=== PATIENT | female | born 1930 | race American Indian/Alaskan Native ===

== ENCOUNTER 2017-05-20 09:53 | Inpatient (IN) | payer MEDICARE, MEDICAID ==
[2017-05-20 10:28] LABS: Basophils % (Auto) 0.5 % (0.0-1.8); Hematocrit 35.2 % (30.3-42.9); Hemoglobin 11.2 gm/dl (10.1-14.3); Mean Corpuscular HGB Conc 32 % (30-34); Mean Corpuscular Hemoglobin 29 pg (28-32); Mean Corpuscular Volume 91 fl (79-97); Platelet Count 382 K/mm3 (140-440); Red Blood Count 3.85 M/mm3 (3.65-5.03); Red Cell Distribution Width 15.9 % (13.2-15.2); White Blood Count 5.3 K/mm3 (4.5-11.0)
[2017-05-20 10:45] LABS: Calcium 8.6 mg/dL (8.4-10.2); Chloride 93.3 mmol/L (98-107)
[2017-05-20 10:49] LABS: Potassium 6.6 mmol/L (3.6-5.0)
[2017-05-20 11:33] LABS: Albumin 3.3 g/dL (3.9-5); Bilirubin,Total 0.2 mg/dL (0.1-1.2); Calcium 8.7 mg/dL (8.4-10.2); Chloride 92.6 mmol/L (98-107); Potassium 5.4 mmol/L (3.6-5.0); Total Protein 6.5 g/dL (6.3-8.2)
[2017-05-20] MEDS ORDERED: D50W (25GM) Syringe IV PRN ×2 (11:44→12:41)
--- NOTE | 2017-05-20 11:58 | Emergency Department Report ---
HPI - General Chief Complaint: Hyperglycemia Time Seen by Provider: 05/20/17 11:44 - HPI HPI: Room 6 The patient is an 86-year-old female presenting with a chief complaint of "dehydration." He states the patient has had persistently elevated glucose for the past 4 days. The patient is a type I diabetic and family states patient has been compliant with her insulin. 3 weeks ago the patient did receive a steroid injection in her left knee. Patient hasn't had any preceding complaints. Patient does complain of pain in the left arm and left leg. There was some nausea but no vomiting. Family states the patient had 2 episodes of diarrhea 3 days ago. Patient denies any other forms of pain. Location: [See above] Duration: 4 days Quality: Hyperglycemia Severity: "Hi" Modifying factors: [see above] Context: [see above] Mode of transportation: [not driving] ED Past Medical Hx - Past Medical History Previous Medical History?: Yes Hx CVA: Yes (hemorrhagic CVA) Hx Diabetes: Yes Additional medical history: anemia, DVT - Surgical History Additional Surgical History: Intracranial hemorrhage evacuation. G-tube - Family History Family history: no significant - Social History Smoking Status: Never Smoker Substance Use Type: None - Medications Home Medications: Home Medications Medication Instructions Recorded Confirmed Last Taken Type AtorvaSTATin [Lipitor] 10 mg PO QHS 05/20/17 05/20/17 Unknown History Bethanechol Chloride 25 mg PO TID 05/20/17 05/20/17 Unknown History Cholecalciferol (Vitamin D3) 1,000 unit PO DAILY 05/20/17 05/20/17 Unknown History [Vitamin D3] Cyanocobalamin [Vitamin B-12] 2,000 mcg PO DAILY 05/20/17 05/20/17 Unknown History Insulin Lispro [Humalog] 0 unit SQ DAILY 05/20/17 05/20/17 Unknown History Lisinopril [Zestril TAB] 10 mg PO QDAY 05/20/17 05/20/17 Unknown History Multivitamin [Multiple Vitamins] 1 each PO DAILY 05/20/17 05/20/17 Unknown History Omeprazole 20 mg PO QHS 05/20/17 05/20/17 Unknown History amLODIPine [Norvasc] 5 mg PO DAILY 05/20/17 05/20/17 Unknown History levETIRAcetam [Keppra ORAL LIQ] 500 mg PO BID 05/20/17 05/20/17 Unknown History oxyCODONE [Roxicodone] 5 mg PO Q6HR PRN 05/20/17 05/20/17 Unknown History ED Review of Systems ROS: Stated complaint: HYPERGLYCEMIA Other details as noted in HPI Constitutional: malaise Eyes: denies: eye pain ENT: denies: throat pain Cardiovascular: denies: chest pain Gastrointestinal: nausea, diarrhea. denies: abdominal pain, vomiting Genitourinary: denies: dysuria Musculoskeletal: arthralgia, myalgia Neurological: denies: headache Physical Exam - Physical Exam Vital Signs: Vital Signs 05/20/17 10:11 Temperature 97.6 F Pulse Rate 111 H Respiratory 16 Rate Blood Pressure 119/57 [Left] O2 Sat by Pulse 96 Oximetry Physical Exam: GENERAL: The patient is well-developed well-nourished female lying on stretcher appearing lethargic but not in any acute distress HEENT: Normocephalic. Atraumatic. Extraocular motions are intact. Patient has dry mucous membranes. NECK: Supple. Trachea midline CHEST/LUNGS: Clear to auscultation. There is no respiratory distress noted. HEART/CARDIOVASCULAR: Regular. There is no tachycardia. There is no gallop rub or murmur. ABDOMEN: Abdomen is soft, nontender. Patient has normal bowel sounds. There is no abdominal distention. SKIN: There is no rash. There is no edema. There is no diaphoresis. NEURO: The patient is awake and oriented. The patient is cooperative. The patient has normal speech MUSCULOSKELETAL: There is no evidence of acute injury. ED Course Vital Signs 05/20/17 10:11 Temperature 97.6 F Pulse Rate 111 H Respiratory 16 Rate Blood Pressure 119/57 [Left] O2 Sat by Pulse 96 Oximetry ED Medical Decision Making - Lab Data Result diagrams: 05/20/17 10:15 05/20/17 11:00 Laboratory Tests 05/20/17 05/20/17 05/20/17 10:15 10:17 10:19 WBC 5.3 RBC 3.85 Hgb 11.2 Hct 35.2 MCV 91 MCH 29 MCHC 32 RDW 15.9 H Plt Count 382 Lymph % (Auto) 11.7 L [place] % (Auto) 9.9 H Eos % (Auto) 0.0 Baso % (Auto) 0.5 Lymph # 0.6 L [place] # 0.5 Eos # 0.0 Baso # 0.0 Seg Neutrophils % 77.9 H Seg Neutrophils # 4.1 VBG pH Sodium 133 L Potassium 6.6 H* Chloride 93.3 L Carbon Dioxide 12 L Anion Gap 34 BUN 39 H Creatinine 1.5 H Estimated GFR 40 BUN/Creatinine Ratio 26 Glucose 473 H POC Glucose 414 H Calcium 8.6 Total Bilirubin AST ALT Alkaline Phosphatase Total Protein Albumin Albumin/Globulin Ratio 05/20/17 05/20/17 10:19 11:00 WBC RBC Hgb Hct MCV MCH MCHC RDW Plt Count Lymph % (Auto) [place] % (Auto) Eos % (Auto) Baso % (Auto) Lymph # [place] # Eos # Baso # Seg Neutrophils % Seg Neutrophils # VBG pH 7.231 L Sodium 133 L Potassium 5.4 H Chloride 92.6 L Carbon Dioxide 17 L Anion Gap 29 BUN 40 H Creatinine 1.4 H Estimated GFR 43 BUN/Creatinine Ratio 29 Glucose 558 H* POC Glucose Calcium 8.7 Total Bilirubin 0.20 AST 15 ALT 14 Alkaline Phosphatase 100 Total Protein 6.5 Albumin 3.3 L Albumin/Globulin Ratio 1.0 - Differential Diagnosis DKA, hyperglycemia Critical care attestation.: If time is entered above; I have spent that time in minutes in the direct care of this critically ill patient, excluding procedure time. ED Disposition Clinical Impression: DKA (diabetic ketoacidoses) Disposition: OP ADMIT IP TO THIS HOSP Is pt being admited?: Yes Does the pt Need Aspirin: No Condition: Serious Instructions: Diabetic Ketoacidosis (ED) Referrals: PRIMARY CARE, [Primary Care Provider] - 3-5 Days Time of Disposition: 12:00 (hospitalist paged (Dr Elise))
--- NOTE | 2017-05-20 12:39 | History and Physical Report ---
History of Present Illness Chief complaint: Im dehydrated History of present illness: 86 YO Female [facility] Resident with DM, CVA, Debility, ICH, Anemia presents to ED for evaluation. Pt exhibits cognitive slowing and in unable to provide a detailed history. History taken from ED staff, as well as family, and medical records. Pt states that she is dehydrated. family reports that patient has experienced high serum glucose levels for the past 4 days, with increasing symptoms over the same time period. No reports of fever, chills, CP, Palpitations, vomiting, loose stools, rashes, or generalized body pain, body aches, or medication noncompliance. Pt seen and evaluated in ED and found to have DKA complicated by anion gap acidosis. Pt initiated on DKA protocol, and admitted to ICU. Past History Past Medical History: anemia, diabetes, DVT, stroke Past Surgical History: Other (G tube, ICH evacuation) Social history: . denies: smoking, alcohol abuse, prescription drug abuse Family history: no significant family history (reviewed) Medications and Allergies Allergies Allergy/AdvReac Type Severity Reaction Status Date / Time No Known Allergies Allergy Unverified 05/20/17 09:54 Home Medications Medication Instructions Recorded Confirmed Last Taken Type AtorvaSTATin [Lipitor] 10 mg PO QHS 05/20/17 05/20/17 Unknown History Bethanechol Chloride 25 mg PO TID 05/20/17 05/20/17 Unknown History Cholecalciferol (Vitamin D3) 1,000 unit PO DAILY 05/20/17 05/20/17 Unknown History [Vitamin D3] Cyanocobalamin [Vitamin B-12] 2,000 mcg PO DAILY 05/20/17 05/20/17 Unknown History Insulin Lispro [Humalog] 0 unit SQ DAILY 05/20/17 05/20/17 Unknown History Lisinopril [Zestril TAB] 10 mg PO QDAY 05/20/17 05/20/17 Unknown History Multivitamin [Multiple Vitamins] 1 each PO DAILY 05/20/17 05/20/17 Unknown History Omeprazole 20 mg PO QHS 05/20/17 05/20/17 Unknown History amLODIPine [Norvasc] 5 mg PO DAILY 05/20/17 05/20/17 Unknown History levETIRAcetam [Keppra ORAL LIQ] 500 mg PO BID 05/20/17 05/20/17 Unknown History oxyCODONE [Roxicodone] 5 mg PO Q6HR PRN 05/20/17 05/20/17 Unknown History Active Meds: Active Medications Dextrose (D50w (25gm) Syringe) 0 ml IV ONCE PRN PRN Reason: Hypoglycemia Insulin Human Regular 100 (units/ Sodium Chloride) 100 mls @ 5 mls/hr IV TITR DENNIS; 5 UNITS/HR PRN Reason: Protocol Review of Systems ROS unobtainable: due to mental status Exam - Constitutional Vitals: Temp Pulse Resp BP Pulse Ox 97.6 F 111 H 16 119/57 96 05/20/17 10:11 05/20/17 10:11 05/20/17 10:11 05/20/17 10:11 05/20/17 10:11 General appearance: Present: mild distress - EENT Eyes: Present: PERRL ENT: hearing intact, clear oral mucosa, other (dry oral mucosa) - Neck Neck: Present: supple, normal ROM - Respiratory Respiratory effort: normal Respiratory: bilateral: CTA - Cardiovascular Rhythm: other (tachycardia) Heart Sounds: Present: S1 & S2. Absent: rub, click - Extremities Extremities: pulses symmetrical, No edema Peripheral Pulses: within normal limits - Abdominal General gastrointestinal: Present: soft, non-tender, non-distended, normal bowel sounds Female genitourinary: Present: normal - Integumentary Integumentary: Present: clear, dry, decreased turgor - Musculoskeletal Musculoskeletal: generalized weakness - Psychiatric Psychiatric: no intact judgment & insight, no memory intact - Neurologic Neurologic: CNII-XII intact, moves all extremities, no gait normal Results - Labs CBC & Chem 7: 05/20/17 10:15 05/20/17 13:30 Labs: Abnormal lab results 05/20/17 05/20/17 05/20/17 Range/Units 10:15 10:17 10:19 RDW 15.9 H (13.2-15.2) % Lymph % (Auto) 11.7 L (13.4-35.0) % [place] % (Auto) 9.9 H (0.0-7.3) % Lymph # 0.6 L (1.2-5.4) K/mm3 Seg Neutrophils % 77.9 H (40.0-70.0) % VBG pH (7.320-7.420) Sodium 133 L (137-145) mmol/L Potassium 6.6 H* (3.6-5.0) mmol/L Chloride 93.3 L (98-107) mmol/L Carbon Dioxide 12 L (22-30) mmol/L BUN 39 H (7-17) mg/dL Creatinine 1.5 H (0.7-1.2) mg/dL Glucose 473 H (65-100) mg/dL POC Glucose 414 H (70-105) Albumin (3.9-5) g/dL 05/20/17 05/20/17 Range/Units 10:19 11:00 RDW (13.2-15.2) % Lymph % (Auto) (13.4-35.0) % [place] % (Auto) (0.0-7.3) % Lymph # (1.2-5.4) K/mm3 Seg Neutrophils % (40.0-70.0) % VBG pH 7.231 L (7.320-7.420) Sodium 133 L (137-145) mmol/L Potassium 5.4 H (3.6-5.0) mmol/L Chloride 92.6 L (98-107) mmol/L Carbon Dioxide 17 L (22-30) mmol/L BUN 40 H (7-17) mg/dL Creatinine 1.4 H (0.7-1.2) mg/dL Glucose 558 H* (65-100) mg/dL POC Glucose (70-105) Albumin 3.3 L (3.9-5) g/dL Assessment and Plan - Patient Problems (1) DKA (diabetic ketoacidoses) Current Visit: Yes Status: Acute Plan to address problem: Insulin drip, serial BMP to monitor anion gap, IVF resuscitation, monitor uop q shift, The high probability of a clinically significant, sudden or life threatening deterioration of the [endocrine, renal, neuro] system(s) required my full and direct attention, intervention and personal management. The aggregate critical care time was [65] minutes. This time is in addition to time spent performing reported procedures but includes the following: [x] Data Review and interpretation [x] Patient assessment and monitoring of vital signs [x] Documentation [x] Medication orders and management (2) Metabolic acidosis Current Visit: Yes Status: Acute Plan to address problem: Treat DKA, IVF resuscitation, serial bmp (3) ARF (acute renal failure) Current Visit: Yes Status: Acute Plan to address problem: IVF resuscitation therapy, monitor uop q shift, if no improvement or worsening in serum creatnine or urine output, will asses with urine electrolytes. (4) Hyperkalemia Current Visit: Yes Status: Acute (5) Hyponatremia syndrome Current Visit: Yes Status: Acute Plan to address problem: IVF resuscitation, repeat bmp, (6) DVT prophylaxis Current Visit: Yes Status: Acute
[2017-05-20] MEDS ORDERED: ALUM-MAG HYDROX-SIMETH 200-200-20MG/5ML PO PRN (12:41)
[2017-05-20] MEDS ORDERED: MILK OF MAGNESIA PO PRN (12:41)
[2017-05-20] MEDS ORDERED: DULCOLAX PR PRN (12:41)
[2017-05-20] MEDS ORDERED: PROVENTIL IH PRN (12:41)
[2017-05-20] MEDS ORDERED: ROXICODONE PO PRN (12:43)
[2017-05-20] MEDS: NovoLIN R 100 UNITS in NACL 0.9% 99 ML IV SCH (12:45)
[2017-05-20] MEDS ORDERED: NovoLIN R 100 UNITS in NACL 0.9% 99 ML IV SCH (13:00)
[2017-05-20 13:25] LABS: Magnesium 2.1 mg/dL (1.7-2.3); Phosphorous 3.9 mg/dL (2.5-4.5)
[2017-05-20 14:02] LABS: Calcium 8.5 mg/dL (8.4-10.2); Potassium 4.6 mmol/L (3.6-5.0)
[2017-05-20] MEDS: URECHOLINE PO SCH ×2 (15:15→19:59)
[2017-05-20 15:36] LABS: Calcium 8.8 mg/dL (8.4-10.2); Chloride 94.4 mmol/L (98-107); Potassium 4.5 mmol/L (3.6-5.0)
[2017-05-20] MEDS ORDERED: D5/0.45NS 1,000 ML IV SCH (18:00)
[2017-05-20 18:19] LABS: Calcium 8.9 mg/dL (8.4-10.2); Chloride 97.9 mmol/L (98-107); Potassium 3.8 mmol/L (3.6-5.0)
[2017-05-20] MEDS ORDERED: NACL 0.9% 1000 ML 1,000 ML IV SCH (19:00)
[2017-05-20] MEDS: KEPPRA PO SCH (21:55)
[2017-05-20] MEDS ORDERED: NON-FORMULARY (Omeprazole [Omeprazole] 20 MG) PO SCH (22:00)
[2017-05-21] MEDS: NovoLIN R 100 UNITS in NACL 0.9% 99 ML IV SCH (03:04)
[2017-05-21 03:38] LABS: Bacteria,Urine 4+ /HPF (Negative); Bilirubin,Urine NEG (Negative); Blood,Urine SM (Negative); Ketones,Urine TR mg/dL (Negative); Leukocyte Esterase,Urine LG (Negative); Mucus,Urine FEW /HPF; Nitrite,Urine NEG (Negative); Urobilinogen,Urine < 2.0 mg/dL (<2.0)
[2017-05-21 03:41] LABS: WBC,Urine > 182.0 /HPF (0.0-6.0)
[2017-05-21 05:03] LABS: Anion Gap 22 mmol/L; BUN/Creatinine Ratio 32; Blood Urea Nitrogen 32 mg/dL (7-17); Calcium 8.3 mg/dL (8.4-10.2); Carbon Dioxide 21 mmol/L (22-30); Chloride 98.2 mmol/L (98-107); Glucose 136 mg/dL (65-100); Potassium 3.8 mmol/L (3.6-5.0); Sodium 137 mmol/L (137-145)
[2017-05-21] MEDS: URECHOLINE PO SCH ×4 (08:17→23:09)
[2017-05-21] MEDS ORDERED: NON-FORMULARY (Multivitamin [Multiple Vitamins] 1 EACH) PO SCH (10:00)
[2017-05-21] MEDS ORDERED: NON-FORMULARY (Cholecalciferol (Vitamin D3) [Vitamin D3] 1,000 UNIT) PO SCH (10:00)
--- NOTE | 2017-05-21 10:39 | Consultation ---
History of Present Illness - Reason for Consult Consult date: 05/21/17 DKA Requesting physician: NO DE - History of Present Illness 86 YO Female Long Term Resident with DM, CVA, Debility, ICH, Anemia presents to ED for evaluation. Pt exhibits cognitive slowing and in unable to provide a detailed history. History taken from ED staff, as well as family, and medical records. Pt states that she is dehydrated. family reports that patient has experienced high serum glucose levels for the past 4 days, with increasing symptoms over the same time period. No reports of fever, chills, CP, Palpitations, vomiting, loose stools, rashes, or generalized body pain, body aches, or medication noncompliance. Pt seen and evaluated in ED and found to have DKA complicated by anion gap acidosis. Pt initiated on DKA protocol, and admitted to ICU. Past History Past Medical History: anemia, diabetes, DVT, stroke Past Surgical History: Other (G tube, ICH evacuation) Social history: . denies: smoking, alcohol abuse, prescription drug abuse Family history: no significant family history (reviewed) Medications and Allergies Allergies Allergy/AdvReac Type Severity Reaction Status Date / Time heparin AdvReac Bleeding Verified 05/20/17 18:51 Home Medications Medication Instructions Recorded Confirmed Last Taken Type AtorvaSTATin [Lipitor] 10 mg PO QHS 05/20/17 05/20/17 Unknown History Bethanechol Chloride 25 mg PO TID 05/20/17 05/20/17 Unknown History Cholecalciferol (Vitamin D3) 1,000 unit PO DAILY 05/20/17 05/20/17 Unknown History [Vitamin D3] Cyanocobalamin [Vitamin B-12] 2,000 mcg PO DAILY 05/20/17 05/20/17 Unknown History Insulin Lispro [Humalog] 0 unit SQ DAILY 05/20/17 05/20/17 Unknown History Lisinopril [Zestril TAB] 10 mg PO QDAY 05/20/17 05/20/17 Unknown History Multivitamin [Multiple Vitamins] 1 each PO DAILY 05/20/17 05/20/17 Unknown History Omeprazole 20 mg PO QHS 05/20/17 05/20/17 Unknown History amLODIPine [Norvasc] 5 mg PO DAILY 05/20/17 05/20/17 Unknown History levETIRAcetam [Keppra ORAL LIQ] 500 mg PO BID 05/20/17 05/20/17 Unknown History oxyCODONE [Roxicodone] 5 mg PO Q6HR PRN 05/20/17 05/20/17 Unknown History Active Meds: Active Medications Al Hydrox/Mg Hydrox/Simethicone (Alum-Mag Hydrox-Simeth [id number]/5ml) 30 ml PO Q4H PRN PRN Reason: Indigestion Albuterol (Proventil) 2.5 mg IH Q3HRT PRN PRN Reason: Shortness Of Breath Amlodipine Besylate (Norvasc) 5 mg PO DAILY REPLACED BY [facility] Atorvastatin Calcium (Lipitor) 10 mg PO QHS REPLACED BY [facility] Last Admin: 05/20/17 21:55 Dose: 10 mg Bethanechol Chloride (Urecholine) 25 mg PO TID REPLACED BY [facility] Last Admin: 05/20/17 19:59 Dose: 25 mg Bisacodyl (Dulcolax) 10 mg CO QDAY PRN PRN Reason: constipation unrelieved by MOM Cholecalciferol (Vitamin D3) 1,000 unit PO QDAY REPLACED BY [facility] Cyanocobalamin (Vitamin B-12) 2,000 mcg PO DAILY REPLACED BY [facility] Dextrose (D50w (25gm) Syringe) 0 ml IV ONCE PRN PRN Reason: Hypoglycemia Insulin Human Regular 100 (units/ Sodium Chloride) 100 mls @ 5 mls/hr IV TITR DENNIS; 5 UNITS/HR PRN Reason: Protocol Last Titration: 05/21/17 06:57 Dose: 0.5 units/hr, 0.5 mls/hr Dextrose/Sodium Chloride (D5/0.45ns) 1,000 mls @ 125 mls/hr IV DIRECT DENNIS Sodium Chloride (Nacl 0.9% 1000 Ml) 1,000 mls @ 125 mls/hr IV DIRECT REPLACED BY [facility] Influenza Virus Vaccine Quadrival (Fluarix Quad [id number](36 Mos+) 0.5 ml IM .ONCE ONE Stop: 05/21/17 12:01 Levetiracetam (Keppra) 500 mg PO BID REPLACED BY [facility] Last Admin: 05/20/17 21:55 Dose: 500 mg Lisinopril (Zestril) 10 mg PO QDAY REPLACED BY [facility] Magnesium Hydroxide (Milk Of Magnesia) 30 ml PO Q4H PRN PRN Reason: Constipation Multivitamins (Theragran Tab) 1 each PO DAILY DENNIS Oxycodone HCl (Roxicodone) 5 mg PO Q6HR PRN PRN Reason: Pain Pantoprazole Sodium (Protonix) 20 mg PO QDAY DENNIS Review of Systems All systems: negative Exam - Constitutional Vitals: Temp Pulse Resp BP Pulse Ox 97.6 F 93 H 10 L 135/63 100 05/21/17 08:00 05/21/17 08:21 05/21/17 08:21 05/21/17 08:21 05/21/17 08:21 Results - Labs CBC & Chem 7: 05/20/17 10:15 05/21/17 04:27 Labs: Abnormal lab results 05/20/17 05/20/17 05/20/17 Range/Units 10:17 10:19 10:19 VBG pH 7.231 L (7.320-7.420) Sodium 133 L (137-145) mmol/L Potassium 6.6 H* (3.6-5.0) mmol/L Chloride 93.3 L (98-107) mmol/L Carbon Dioxide 12 L (22-30) mmol/L BUN 39 H (7-17) mg/dL Creatinine 1.5 H (0.7-1.2) mg/dL Glucose 473 H (65-100) mg/dL POC Glucose 414 H (70-105) Calcium (8.4-10.2) mg/dL Albumin (3.9-5) g/dL Urine WBC (Auto) (0.0-6.0) /HPF 05/20/17 05/20/17 05/20/17 Range/Units 11:00 13:30 13:53 VBG pH (7.320-7.420) Sodium 133 L 133 L (137-145) mmol/L Potassium 5.4 H (3.6-5.0) mmol/L Chloride 92.6 L 92.0 L (98-107) mmol/L Carbon Dioxide 17 L 16 L (22-30) mmol/L BUN 40 H 40 H (7-17) mg/dL Creatinine 1.4 H 1.4 H (0.7-1.2) mg/dL Glucose 558 H* 654 H* (65-100) mg/dL POC Glucose 467 H (70-105) Calcium (8.4-10.2) mg/dL Albumin 3.3 L (3.9-5) g/dL Urine WBC (Auto) (0.0-6.0) /HPF 05/20/17 05/20/17 05/20/17 Range/Units 14:55 15:07 16:35 VBG pH (7.320-7.420) Sodium 135 L (137-145) mmol/L Potassium (3.6-5.0) mmol/L Chloride 94.4 L (98-107) mmol/L Carbon Dioxide 13 L (22-30) mmol/L BUN 39 H (7-17) mg/dL Creatinine 1.4 H (0.7-1.2) mg/dL Glucose 465 H (65-100) mg/dL POC Glucose 434 H 375 H (70-105) Calcium (8.4-10.2) mg/dL Albumin (3.9-5) g/dL Urine WBC (Auto) (0.0-6.0) /HPF 05/20/17 05/20/17 05/20/17 Range/Units 17:29 17:49 18:38 VBG pH (7.320-7.420) Sodium (137-145) mmol/L Potassium (3.6-5.0) mmol/L Chloride 97.9 L (98-107) mmol/L Carbon Dioxide (22-30) mmol/L BUN 37 H (7-17) mg/dL Creatinine 1.3 H (0.7-1.2) mg/dL Glucose 127 H (65-100) mg/dL POC Glucose 191 H 140 H (70-105) Calcium (8.4-10.2) mg/dL Albumin (3.9-5) g/dL Urine WBC (Auto) (0.0-6.0) /HPF 05/20/17 05/20/17 05/20/17 Range/Units 21:59 22:59 Unknown VBG pH (7.320-7.420) Sodium (137-145) mmol/L Potassium (3.6-5.0) mmol/L Chloride (98-107) mmol/L Carbon Dioxide (22-30) mmol/L BUN (7-17) mg/dL Creatinine (0.7-1.2) mg/dL Glucose (65-100) mg/dL POC Glucose 151 H 180 H (70-105) Calcium (8.4-10.2) mg/dL Albumin (3.9-5) g/dL Urine WBC (Auto) > 182.0 H (0.0-6.0) /HPF 05/21/17 05/21/17 Range/Units 00:11 04:27 VBG pH (7.320-7.420) Sodium (137-145) mmol/L Potassium (3.6-5.0) mmol/L Chloride (98-107) mmol/L Carbon Dioxide 21 L (22-30) mmol/L BUN 32 H (7-17) mg/dL Creatinine (0.7-1.2) mg/dL Glucose 136 H (65-100) mg/dL POC Glucose 142 H (70-105) Calcium 8.3 L (8.4-10.2) mg/dL Albumin (3.9-5) g/dL Urine WBC (Auto) (0.0-6.0) /HPF Assessment and Plan 86 y/o female with DKA 1. Calculate insulin requirement for last 24 hours 2. Will administer long acting insulin and discontinue drip, 2 hours after 3. Feed patient CC diet 4. If tolerates, transfer to the floor 5. UA positive but no fever, no white count. Will monitor for now. CCT 31 minutes.
[2017-05-21] MEDS ORDERED: LEVEMIR SUB-Q SCH (11:00)
[2017-05-21] MEDS ORDERED: Fluarix Quad 2017-2018(36 MOS+ IM ONE (12:00)
[2017-05-21] MEDS: NOVOLOG SUB-Q SCH ×3 (12:00→18:52)
[2017-05-21 12:03] LABS: Anion Gap 19 mmol/L; BUN/Creatinine Ratio 29; Blood Urea Nitrogen 26 mg/dL (7-17); Calcium 8.1 mg/dL (8.4-10.2); Carbon Dioxide 23 mmol/L (22-30); Chloride 99.1 mmol/L (98-107); Glucose 181 mg/dL (65-100); Sodium 137 mmol/L (137-145)
[2017-05-21] MEDS: ZESTRIL PO SCH (12:05)
[2017-05-21] MEDS: THERAGRAN Tab PO SCH (12:06)
[2017-05-21] MEDS: VITAMIN B-12 PO SCH (12:06)
[2017-05-21] MEDS: NORVASC PO SCH (12:06)
[2017-05-21] MEDS: PROTONIX PO SCH (12:06)
[2017-05-21] MEDS: VITAMIN D3 PO SCH (12:07)
[2017-05-21] MEDS: KEPPRA PO SCH ×2 (12:07→23:09)
[2017-05-21] MEDS ORDERED: SODIUM BICARBONATE FEEDTUBE PRN (16:24)
[2017-05-21] MEDS ORDERED: PANCREAZE DR 10,500 UNIT FEEDTUBE PRN (16:24)
[2017-05-21] MEDS ORDERED: SIMPLE SYRUP FEEDTUBE PRN ×2 (16:24)
--- NOTE | 2017-05-21 17:26 | Progress Note ---
Assessment and Plan Assessment and plan: 86-year-old [place] female with past medical history significant for diabetes mellitus, subdural hematoma, phlebitis admitted to ICU for the management of DKA. Patient has G-tube, but she is able to eat by mouth. Her son brought tresiba which is a new diabetic medications she used to take at home and will restart that and will DC the detemir but continue thr SSI coverage. The patient [facility] and she was not on ADA diet. DKA - Patient was treated according to DKA protocol and resolved - Anion gap closed, co2 normalized DM with hyperglycemia - We will continue tresiba - Continue sliding scale insulin coverage - Patient is on diabetic diet UTI - Put her on ceftriaxone - will follow the culture result Weakness debility - Consult for PT, case management , evaluation for rehab placement Metabolic Acidosis - her bicarb is 23 this morning Sub dural hematoma X2, she had removal of subdural hematoma x1 LUCINDA - resolved DVT prophylaxis - SCDs Disposition - will monitor in the ICU. History Interval history: Patient was seen and evaluated this morning, patient said she was hungry, she wants her diet. I have discussed the management plan with her son Zion who is a member of [facility]. Hospitalist Physical - Physical exam Narrative exam: Not in cardiopulmonary distress. The patient is emaciated. Vital signs as documented. Head exam is unremarkable. No scleral icterus . Neck is without jugular venous distension, thyromegaly, or carotid bruits. Lungs are clear to auscultation. Cardiac exam reveals regular rate and Rhythm. Abdominal G-tube in place. Extremities are nonedematous and both femoral and pedal pulses are normal. NAIL SPECIALIST: Alert and oriented 3. - Constitutional Vitals: Temp Pulse Resp BP Pulse Ox 98.4 F 113 H 18 131/69 75 L 05/21/17 14:00 05/21/17 16:21 05/21/17 16:21 05/21/17 16:21 05/21/17 16:21 General appearance: Present: mild distress Results - Labs CBC & Chem 7: 05/20/17 10:15 05/21/17 11:30 Labs: Laboratory Last Values WBC 5.3 K/mm3 (4.5-11.0) 05/20/17 10:15 RBC 3.85 M/mm3 (3.65-5.03) 05/20/17 10:15 Hgb 11.2 gm/dl (10.1-14.3) 05/20/17 10:15 Hct 35.2 % (30.3-42.9) 05/20/17 10:15 MCV 91 fl (79-97) 05/20/17 10:15 MCH 29 pg (28-32) 05/20/17 10:15 MCHC 32 % (30-34) 05/20/17 10:15 RDW 15.9 % (13.2-15.2) H 05/20/17 10:15 Plt Count 382 K/mm3 (140-440) 05/20/17 10:15 Lymph % (Auto) 11.7 % (13.4-35.0) L 05/20/17 10:15 [place] % (Auto) 9.9 % (0.0-7.3) H 05/20/17 10:15 Eos % (Auto) 0.0 % (0.0-4.3) 05/20/17 10:15 Baso % (Auto) 0.5 % (0.0-1.8) 05/20/17 10:15 Lymph # 0.6 K/mm3 (1.2-5.4) L 05/20/17 10:15 [place] # 0.5 K/mm3 (0.0-0.8) 05/20/17 10:15 Eos # 0.0 K/mm3 (0.0-0.4) 05/20/17 10:15 Baso # 0.0 K/mm3 (0.0-0.1) 05/20/17 10:15 Seg Neutrophils % 77.9 % (40.0-70.0) H 05/20/17 10:15 Seg Neutrophils # 4.1 K/mm3 (1.8-7.7) 05/20/17 10:15 VBG pH 7.231 (7.320-7.420) L 05/20/17 10:19 Sodium 137 mmol/L (137-145) 05/21/17 11:30 Potassium 4.0 mmol/L (3.6-5.0) 05/21/17 11:30 Chloride 99.1 mmol/L (98-107) 05/21/17 11:30 Carbon Dioxide 23 mmol/L (22-30) 05/21/17 11:30 Anion Gap 19 mmol/L 05/21/17 11:30 BUN 26 mg/dL (7-17) H 05/21/17 11:30 Creatinine 0.9 mg/dL (0.7-1.2) 05/21/17 11:30 Estimated GFR > 60 ml/min 05/21/17 11:30 BUN/Creatinine Ratio 29 % 05/21/17 11:30 Glucose 181 mg/dL (65-100) H 05/21/17 11:30 POC Glucose 173 (70-105) H 05/21/17 14:05 Calcium 8.1 mg/dL (8.4-10.2) L 05/21/17 11:30 Phosphorus 3.40 mg/dL (2.5-4.5) 05/20/17 21:26 Magnesium 2.10 mg/dL (1.7-2.3) 05/20/17 11:00 Total Bilirubin 0.20 mg/dL (0.1-1.2) 05/20/17 11:00 AST 15 units/L (5-40) 05/20/17 11:00 ALT 14 units/L (7-56) 05/20/17 11:00 Alkaline Phosphatase 100 units/L (35-129) 05/20/17 11:00 Total Protein 6.5 g/dL (6.3-8.2) 05/20/17 11:00 Albumin 3.3 g/dL (3.9-5) L 05/20/17 11:00 Albumin/Globulin Ratio 1.0 % 05/20/17 11:00 Urine Color Yellow (Yellow) 05/20/17 Unknown Urine Turbidity Clear (Clear) 05/20/17 Unknown Urine pH 5.0 (5.0-7.0) 05/20/17 Unknown Ur Specific [place] 1.015 (1.003-1.030) 05/20/17 Unknown Urine Protein 30 mg/dl mg/dL (Negative) 05/20/17 Unknown Urine Glucose (UA) >=500 mg/dL (Negative) 05/20/17 Unknown Urine Ketones Tr mg/dL (Negative) 05/20/17 Unknown Urine Blood Sm (Negative) 05/20/17 Unknown Urine Nitrite Neg (Negative) 05/20/17 Unknown Urine Bilirubin Neg (Negative) 05/20/17 Unknown Urine Urobilinogen < 2.0 mg/dL (<2.0) 05/20/17 Unknown Ur Leukocyte Esterase Lg (Negative) 05/20/17 Unknown Urine WBC (Auto) > 182.0 /HPF (0.0-6.0) H 05/20/17 Unknown Urine RBC (Auto) 2.0 /HPF (0.0-6.0) 05/20/17 Unknown U Epithel Cells (Auto) 1.0 /HPF (0-13.0) 05/20/17 Unknown Urine Bacteria (Auto) 4+ /HPF (Negative) 05/20/17 Unknown Urine WBC Clumps 3+ /HPF 05/20/17 Unknown Hyaline Casts 2 /LPF 05/20/17 Unknown Urine Mucus Few /HPF 05/20/17 Unknown
[2017-05-21] MEDS ORDERED: ROCEPHIN/NS 1 GM/50 ML 1 GM/50 ML BAG IV SCH (18:00)
[2017-05-21] MEDS: cefTRIAXone 1 GM in NACL 0.9% 20 ML IV SCH (18:35)
--- NOTE | 2017-05-21 21:28 | XRay Report ---
FINAL REPORT PROCEDURE: XR WRIST 2V LT TECHNIQUE: LEFT wrist radiographs, AP and lateral views. HISTORY: wrist pain x 2 months ? injury COMPARISON: No prior studies are available for comparison. FINDINGS: Fracture(s)and/or Dislocation(s): No acute fracture line is identified. Alignment: Normal. Joint space(s): Narrowing of the 1st carpal metacarpal joint spaces noted Soft tissues: Normal. Bone mineralization: Normal. Foreign bodies: None. IMPRESSION: No acute fracture. Osteoarthritis.
[2017-05-22] MEDS: NOVOLOG SUB-Q SCH ×5 (00:53→23:58)
[2017-05-22 04:54] LABS: Anion Gap 17 mmol/L; BUN/Creatinine Ratio 28; Blood Urea Nitrogen 17 mg/dL (7-17); Calcium 8.4 mg/dL (8.4-10.2); Carbon Dioxide 24 mmol/L (22-30); Chloride 98.3 mmol/L (98-107); Glucose 40 mg/dL (65-100); Potassium 3.8 mmol/L (3.6-5.0); Sodium 135 mmol/L (137-145)
[2017-05-22] MEDS ORDERED: D50W (25GM) Vial 50 ML IV ONE (07:12)
[2017-05-22] MEDS: URECHOLINE PO SCH ×3 (08:42→23:55)
--- NOTE | 2017-05-22 09:26 | Event Note ---
Date: 05/22/17 At this time, will sign off of this case. From a critical care standpoint, we are not being allowed to treat the patient according to proper standards. The family consists of physicians and they have been dictating care that is not in accordance to what we would do for any patient in DKA. This would increase the risk of mortality and morbidity.
[2017-05-22] MEDS ORDERED: TRESIBA 20 UNIT SQ SCH (10:00)
[2017-05-22] MEDS ORDERED: TRESIBA 10 UNIT SQ SCH (11:00)
[2017-05-22] MEDS: KEPPRA PO SCH ×2 (12:21→23:54)
[2017-05-22] MEDS: THERAGRAN Tab PO SCH (12:21)
[2017-05-22] MEDS: VITAMIN D3 PO SCH (12:21)
[2017-05-22] MEDS: PROTONIX PO SCH (12:22)
[2017-05-22] MEDS: VITAMIN B-12 PO SCH (12:22)
[2017-05-22] MEDS: NORVASC PO SCH (12:22)
[2017-05-22] MEDS: ZESTRIL PO SCH (12:23)
--- NOTE | 2017-05-22 13:30 | Query- Renal Failure ---
Dear Jeannine Date:___05/22/17 [employer] Consultant/CDS:_Anuj Phone#:__[phone] Exercise your independent professional judgment when responding to query. Questions asked do not imply a particular answer is desired or expected. We greatly appreciate your clarification on this issue. Clinical Documentation States: 86-year-old female was admitted on 05/20/17. Internal Med - H&P(Dr Elise on 05/20/17) states" ARF (acute renal failure) Current Visit: Yes Status: Acute Plan to address problem: IVF resuscitation therapy, monitor uop q shift, if no improvement or worsening in serum creatnine or urine output, will asses with urine electrolytes. Hospitalist Progress Note(Dr Paez on 05/21/17) states" Assessment and plan: LUCINDA - resolved" Clinical Findings Show: 05/20/17 05/22/17 Creatinine 1.5 0.6 BUN 40 17 BUN/Cr Ratio: 26 28 Please clarify if you mean: Acute Renal Failure with or due to: [ ] Tubular Necrosis [ ] Medullary Necrosis [ x] Vasomotor Nephropathy [ ] Shock Kidney [ ] Tubular Nephrosis [ ] Renal Tubular Stasis [ ] Cortical Necrosis [ ] Acute Renal Failure (unspecified) [ ] Lower Tubular Nephrosis [ ] Other: [ ] Not Applicable Present on Admission: [ x] Yes (Y) [ ] Clinically undeterminable (W) [ ] No (N) Please also document response in your Progress Notes and/or Discharge Summary and indicate if the condition was present on admission. LUZ MARIAD
[2017-05-22] MEDS ORDERED: TYLENOL PO PRN (15:53)
--- NOTE | 2017-05-22 15:59 | Progress Note ---
Assessment and Plan Assessment and plan: 86-year-old female with past medical history significant for diabetes mellitus, subdural hematoma, phlebitis admitted to ICU for the management of DKA. Patient has G-tube, but she is able to eat by mouth. Her son brought tresiba which is a new diabetic medications she used to take at home and will restart that and will DC the detemir but continue thr SSI coverage. The patient came from long term and she was not on ADA diet. DKA - Patient was treated according to DKA protocol and resolved - Anion gap closed, co2 normalized DM with hyperglycemia - We will continue tresiba - Continue sliding scale insulin coverage - Patient is on diabetic diet -Hemoglobin and once in the morning UTI - Put her on ceftriaxone - will follow the culture result Weakness debility - Consult for PT, case management , evaluation for rehab placement Metabolic Acidosis - her bicarb is 23 this morning Sub dural hematoma X2, she had removal of subdural hematoma x1 LUCINDA - resolved DVT prophylaxis - SCDs Disposition -Possible discharge tomorrow morning. History Interval history: Patient was seen and evaluated this morning, patient said she eats breakfast. Patient has episode of hypoglycemia and her long-acting insulin is decreased from 10-5units. Hospitalist Physical - Physical exam Narrative exam: Not in cardiopulmonary distress. The patient is emaciated. Vital signs as documented. Head exam is unremarkable. No scleral icterus . Neck is without jugular venous distension, thyromegaly, or carotid bruits. Lungs are clear to auscultation. Cardiac exam reveals regular rate and Rhythm. Abdominal G-tube in place. Extremities are nonedematous and both femoral and pedal pulses are normal. DEPOSIT CLERK: Alert and oriented 3. Mild left-sided weakness - Constitutional Vitals: Temp Pulse Resp BP Pulse Ox 98.6 F 106 H 18 149/74 98 05/22/17 14:20 05/22/17 14:20 05/22/17 14:20 05/22/17 14:20 05/22/17 14:20 General appearance: Present: mild distress Results - Labs CBC & Chem 7: 05/20/17 10:15 05/22/17 04:17 Labs: Laboratory Last Values WBC 5.3 K/mm3 (4.5-11.0) 05/20/17 10:15 RBC 3.85 M/mm3 (3.65-5.03) 05/20/17 10:15 Hgb 11.2 gm/dl (10.1-14.3) 05/20/17 10:15 Hct 35.2 % (30.3-42.9) 05/20/17 10:15 MCV 91 fl (79-97) 05/20/17 10:15 MCH 29 pg (28-32) 05/20/17 10:15 MCHC 32 % (30-34) 05/20/17 10:15 RDW 15.9 % (13.2-15.2) H 05/20/17 10:15 Plt Count 382 K/mm3 (140-440) 05/20/17 10:15 Lymph % (Auto) 11.7 % (13.4-35.0) L 05/20/17 10:15 [place] % (Auto) 9.9 % (0.0-7.3) H 05/20/17 10:15 Eos % (Auto) 0.0 % (0.0-4.3) 05/20/17 10:15 Baso % (Auto) 0.5 % (0.0-1.8) 05/20/17 10:15 Lymph # 0.6 K/mm3 (1.2-5.4) L 05/20/17 10:15 [place] # 0.5 K/mm3 (0.0-0.8) 05/20/17 10:15 Eos # 0.0 K/mm3 (0.0-0.4) 05/20/17 10:15 Baso # 0.0 K/mm3 (0.0-0.1) 05/20/17 10:15 Seg Neutrophils % 77.9 % (40.0-70.0) H 05/20/17 10:15 Seg Neutrophils # 4.1 K/mm3 (1.8-7.7) 05/20/17 10:15 VBG pH 7.231 (7.320-7.420) L 05/20/17 10:19 Sodium 135 mmol/L (137-145) L 05/22/17 04:17 Potassium 3.8 mmol/L (3.6-5.0) 05/22/17 04:17 Chloride 98.3 mmol/L (98-107) 05/22/17 04:17 Carbon Dioxide 24 mmol/L (22-30) 05/22/17 04:17 Anion Gap 17 mmol/L 05/22/17 04:17 BUN 17 mg/dL (7-17) 05/22/17 04:17 Creatinine 0.6 mg/dL (0.7-1.2) L 05/22/17 04:17 Estimated GFR > 60 ml/min 05/22/17 04:17 BUN/Creatinine Ratio 28 % 05/22/17 04:17 Glucose 40 mg/dL (65-100) L 05/22/17 04:17 POC Glucose 283 (70-105) H 05/22/17 12:24 Calcium 8.4 mg/dL (8.4-10.2) 05/22/17 04:17 Phosphorus 3.40 mg/dL (2.5-4.5) 05/20/17 21:26 Magnesium 2.10 mg/dL (1.7-2.3) 05/20/17 11:00 Total Bilirubin 0.20 mg/dL (0.1-1.2) 05/20/17 11:00 AST 15 units/L (5-40) 05/20/17 11:00 ALT 14 units/L (7-56) 05/20/17 11:00 Alkaline Phosphatase 100 units/L (35-129) 05/20/17 11:00 Total Protein 6.5 g/dL (6.3-8.2) 05/20/17 11:00 Albumin 3.3 g/dL (3.9-5) L 05/20/17 11:00 Albumin/Globulin Ratio 1.0 % 05/20/17 11:00 Urine Color Yellow (Yellow) 05/20/17 Unknown Urine Turbidity Clear (Clear) 05/20/17 Unknown Urine pH 5.0 (5.0-7.0) 05/20/17 Unknown Ur Specific [place] 1.015 (1.003-1.030) 05/20/17 Unknown Urine Protein 30 mg/dl mg/dL (Negative) 05/20/17 Unknown Urine Glucose (UA) >=500 mg/dL (Negative) 05/20/17 Unknown Urine Ketones Tr mg/dL (Negative) 05/20/17 Unknown Urine Blood Sm (Negative) 05/20/17 Unknown Urine Nitrite Neg (Negative) 05/20/17 Unknown Urine Bilirubin Neg (Negative) 05/20/17 Unknown Urine Urobilinogen < 2.0 mg/dL (<2.0) 05/20/17 Unknown Ur Leukocyte Esterase Lg (Negative) 05/20/17 Unknown Urine WBC (Auto) > 182.0 /HPF (0.0-6.0) H 05/20/17 Unknown Urine RBC (Auto) 2.0 /HPF (0.0-6.0) 05/20/17 Unknown U Epithel Cells (Auto) 1.0 /HPF (0-13.0) 05/20/17 Unknown Urine Bacteria (Auto) 4+ /HPF (Negative) 05/20/17 Unknown Urine WBC Clumps 3+ /HPF 05/20/17 Unknown Hyaline Casts 2 /LPF 05/20/17 Unknown Urine Mucus Few /HPF 05/20/17 Unknown
[2017-05-22] MEDS: cefTRIAXone 1 GM in NACL 0.9% 20 ML IV SCH (18:18)
[2017-05-22] MEDS: INSULIN DEGLUDEC SQ SCH (18:41)
[2017-05-23 07:03] LABS: Anion Gap 17 mmol/L; BUN/Creatinine Ratio 23; Blood Urea Nitrogen 16 mg/dL (7-17); Calcium 8.2 mg/dL (8.4-10.2); Carbon Dioxide 24 mmol/L (22-30); Chloride 97.3 mmol/L (98-107); Glucose 120 mg/dL (65-100); Potassium 4.6 mmol/L (3.6-5.0); Sodium 134 mmol/L (137-145)
[2017-05-23] MEDS: NOVOLOG SUB-Q SCH ×2 (07:30→13:00)
--- NOTE | 2017-05-23 10:18 | Discharge Summary ---
Providers - Providers Date of Admission: 05/20/17 12:41 Date of discharge: 05/23/17 Attending physician: ADEEL RASMUSSEN MD 05/21/17 12:14 Physical Therapy Evaluation and Treat [CONS] Routine Comment: Reason For Exam: deconditioned 05/21/17 17:18 Consult to Case Management [CONS] Routine Services Needed at Discharge: Other Comment:: rehab 05/21/17 17:47 Consult to Dietitian/Nutrition [CONS] Routine Physician Instructions: Reason For Exam: Reason for Consult: Diet education 05/22/17 13:06 Physical Therapy Evaluation and Treat [CONS] Stat Comment: Reason For Exam: pt has been on bedrest Primary care physician: ROPING MACHINE TENDER Hospitalization Reason for admission: DKA, UTI Condition: Stable Hospital course: 86 YO Female [facility] Resident with DM, CVA, Debility, subdural hematoma, Anemia presents to ED for evaluation. Pt exhibits cognitive slowing and unable to provide a detailed history. History taken from ED staff, as well as family, and medical records. Pt states that she is dehydrated. family reports that patient has experienced high serum glucose levels for the past 4 days, with increasing symptoms over the same time period. No reports of fever, chills, CP, Palpitations, vomiting, loose stools, rashes, or generalized body pain, body aches, or medication noncompliance. Pt seen and evaluated in ED and found to have DKA complicated by anion gap acidosis. Pt initiated on DKA protocol, and admitted to ICU. Patient was admitted to the ICU and managed for DKA according to DKA protocol , and patient was out of DKA. Patient admitted to and was treated with IV ceftriaxone while she was inpatient and discharged with Levaquin for 3 more days. Her son is a physician and told me she has been treated with tresiban long-acting insulin by her transport specialist and was started her with 10 units which made her hypoglycemia and decreased the dose to 5 units. This morning her blood sugar was 110 but her last blood sugar was high. Hypothyroid on ADA diet. Patient's diabetes is difficult to manage as going up hyperglycemia and hypoglycemia. Patient came from detention and she can go home and can be followed by transport specialist. Patient was hemodynamically stable at the time of discharge. Patient can resume her home medications when she went to detention. The plan was discussed with her son yesterday who agreed with the management plan. Disposition: [id number] SNF [facility] Time spent for discharge: 31 minutes - Discharge Diagnoses (1) UTI (urinary tract infection) Status: Acute (2) ARF (acute renal failure) Status: Acute (3) DKA (diabetic ketoacidoses) Status: Acute (4) Metabolic acidosis Status: Acute Core Measure Documentation - Palliative Care Palliative Care/ Comfort Measures: Not Applicable - Core Measures Any of the following diagnoses?: none Exam - Physical Exam Narrative exam: Not in cardiopulmonary distress. The patient is emaciated. Vital signs as documented. Head exam is unremarkable. No scleral icterus . Neck is without jugular venous distension, thyromegaly, or carotid bruits. Lungs are clear to auscultation. Cardiac exam reveals regular rate and Rhythm. Abdominal G-tube in place. Extremities are nonedematous and both femoral and pedal pulses are normal. SYSTEMS ADMINISTRATOR: Alert and oriented 3. Mild left-sided weakness - Constitutional Vitals: Temp Pulse Resp BP Pulse Ox 97.4 F L 94 H 18 121/74 100 05/23/17 07:27 05/23/17 07:27 05/23/17 07:27 05/23/17 07:27 05/23/17 07:27 Plan Activity: advance as tolerated Weight Bearing Status: Weight Bear as Tolerated Diet: diabetic Follow up with: PRIMARY CARE, [Primary Care Provider] - 3-5 Days Prescriptions: Levofloxacin [Levaquin TAB] 500 mg PO QDAY #3 tablet
[2017-05-23] MEDS: VITAMIN D3 PO SCH (11:13)
[2017-05-23] MEDS: KEPPRA PO SCH (11:13)
[2017-05-23] MEDS: VITAMIN B-12 PO SCH (11:14)
[2017-05-23] MEDS: THERAGRAN Tab PO SCH (11:15)
[2017-05-23] MEDS: PROTONIX PO SCH (11:15)
[2017-05-23] MEDS: INSULIN DEGLUDEC SQ SCH (11:17)
[2017-05-23] MEDS: ZESTRIL PO SCH (11:17)
[2017-05-23] MEDS: NORVASC PO SCH (11:17)
[2017-05-23 14:06] VITALS: BP 133/64
[2017-05-23] MEDS: URECHOLINE PO SCH (14:41)
== END 2017-05-23 16:18 | DRG 682 ==
LOC: ED 09:53 → CC1 12:41 → 2B-ACE 05-22 15:35
PROVIDERS: ADMIT Internal Medicine; ATTEND Internal Medicine
PROC: 3E0234Z Introduction of Serum, Toxoid and Vaccine into Muscle, Percutaneous Approach (ICD-10-PCS; principal; 2017-05-21)
DX: N17.0 Acute kidney failure with tubular necrosis (principal); E10.10 Type 1 diabetes mellitus with ketoacidosis without coma; N39.0 Urinary tract infection, site not specified; E87.1 Hypo-osmolality and hyponatremia; E87.5 Hyperkalemia; Z86.73 Personal history of transient ischemic attack (TIA), and cerebral infarction without residual deficits; Z86.718 Personal history of other venous thrombosis and embolism; Z79.899 Other long term (current) drug therapy; Z79.4 Long term (current) use of insulin; Z88.8 Allergy status to other drugs, medicaments and biological substances; Z23 Encounter for immunization
CPT/HCPCS: 36415; 80048; 80053; 81001; 82805; 82962; 83036; 83735; 84100; 85025; 87076; 87086; 87186; 90471; 90686; 99285; A9270-GY; G0008; J0696; J1815; J1818

== ENCOUNTER 2017-05-29 20:10 | Inpatient (IN) | payer MEDICARE, MEDICAID ==
[2017-05-29] MEDS ORDERED: NACL 0.9% 500 ML 500 ML IV ONE (20:11)
--- NOTE | 2017-05-29 20:23 | Emergency Department Report ---
HPI - General Chief Complaint: Hyperglycemia Time Seen by Provider: 05/29/17 20:11 - HPI HPI: This is an 86-year-old female presents to the emergency department by EMS from her ECF at [facility] with complaint of probable DKA and hyperglycemia. The patient apparently was in diabetic ketoacidosis one week ago and was admitted to [facility]. At that time she also had a urinary tract infection and was discharged home on Levaquin. Apparently the ECF was not giving her the antibiotic and there is concern that she still has a urinary tract infection. She has been acting altered and her blood sugar was checked and it read critically high which was also seen by EMS when they arrived. She had an IV placed and was given some IV fluid resuscitation. Both her son and grandson are here and they are also physicians. They say that her other past medical history includes a recent right-sided subdural hematoma about 2 months ago that left her with a little bit of residual weakness in the left hand. The patient herself is a poor story and secondary to her current medical condition. ED Past Medical Hx - Past Medical History Hx CVA: Yes (hemorrhagic CVA) Hx Diabetes: Yes Additional medical history: anemia, DVT - Surgical History Additional Surgical History: Intracranial hemorrhage evacuation. G-tube - Social History Smoking Status: Unknown if ever smoked - Medications Home Medications: Home Medications Medication Instructions Recorded Confirmed Last Taken Type AtorvaSTATin [Lipitor] 10 mg PO QHS 05/20/17 05/20/17 Unknown History Bethanechol Chloride 25 mg PO TID 05/20/17 05/20/17 Unknown History Cholecalciferol (Vitamin D3) 1,000 unit PO DAILY 05/20/17 05/20/17 Unknown History [Vitamin D3] Cyanocobalamin [Vitamin B-12] 2,000 mcg PO DAILY 05/20/17 05/20/17 Unknown History Insulin Lispro [Humalog] 0 unit SQ DAILY 05/20/17 05/20/17 Unknown History Lisinopril [Zestril TAB] 10 mg PO QDAY 05/20/17 05/20/17 Unknown History Multivitamin [Multiple Vitamins] 1 each PO DAILY 05/20/17 05/20/17 Unknown History Omeprazole 20 mg PO QHS 05/20/17 05/20/17 Unknown History amLODIPine [Norvasc] 5 mg PO DAILY 05/20/17 05/20/17 Unknown History levETIRAcetam [Keppra ORAL LIQ] 500 mg PO BID 05/20/17 05/20/17 Unknown History oxyCODONE [Roxicodone TAB] 5 mg PO Q6HR PRN 05/20/17 05/20/17 Unknown History Levofloxacin [Levaquin TAB] 500 mg PO QDAY #3 tablet 05/23/17 Unknown Rx Tresiba 5 units SQ QDAY 05/23/17 Unknown Rx ED Review of Systems ROS: Stated complaint: DKA Other details as noted in HPI Comment: Unobtainable due to pts medical conditions Physical Exam - Physical Exam Physical Exam: GENERAL: Patient is ill-appearing. HENT: Normocephalic. Atraumatic. Patient has dry mucous membranes. EYES: Extraocular motions are intact. Pupils equal reactive to light bilaterally. NECK: Supple. Trachea is midline. CHEST/LUNGS: Clear to auscultation. There is no respiratory distress noted. HEART/CARDIOVASCULAR: Regular. There is no tachycardia. There is no murmur. ABDOMEN: Abdomen is soft, nontender. Patient has normal bowel sounds. There is no abdominal distention. SKIN: Skin is warm and dry. NEURO: Patient is awake but confused. She is talking but it appears to be incoherent. She is not following many commands. MUSCULOSKELETAL: There is no tenderness or deformity. There is no evidence of acute injury. - ABG Interpretation Ph: 7.008 PCO2: 19 PO2: 175 Bicarbonate: 5 Interpretation: metabolic acidosis ED Medical Decision Making - Lab Data Result diagrams: 05/29/17 20:31 05/29/17 21:37 - EKG Data -: EKG Interpreted by Me EKG shows normal: sinus rhythm (ventricular bigeminy), axis, intervals, QRS complexes (Q waves to the septal leads), ST-T waves Rate: normal - EKG Data When compared to previous EKG there are: previous EKG unavailable Interpretation: other (superventricular bigeminy, normal axis, normal intervals , Q wave to the septal leads) - Medical Decision Making 86-year-old female presents with some altered mental status that appears to be secondary to diabetic ketoacidosis. The patient still has a significant urinary tract infection which may be the reason it is hard to control her insulin dependent diabetes. She has a lactic acid level of 13. She has a serum bicarbonate of 2 and a bicarbonate level of 5 on the ABG. She has significant metabolic acidosis. Potassium of 6. Urine culture sent and the patient was started on Levaquin. The patient was given 1 amp of sodium bicarbonate and started on an insulin drip. So far she has gotten 1.5 L of fluid resuscitation and will continue to get some more. The boat builder and repairer is aware. The patient's family has been updated. The patient has been admitted to the ICU by Dr. Gabriel. - Differential Diagnosis diabetic ketoacidosis, UTI, HHNK, Sepsis Critical Care Time: Yes Critical care time in (mins) excluding proc time.: 35 Critical care attestation.: If time is entered above; I have spent that time in minutes in the direct care of this critically ill patient, excluding procedure time. Critical care time was spent on this patient and doing her initial evaluation, multiple re- evaluations, ordering and interpretation of labs, discussion with family, discussion with the boat builder and repairer, discussion with the admitting hospitalist, disposition planning. Critical Care Time: 35 minutes ED Disposition Clinical Impression: Metabolic acidosis, Hyponatremia syndrome, Lactic acidosis DKA (diabetic ketoacidoses) Qualifiers: Diabetes mellitus type: type 1 Diabetes mellitus complication detail: without coma Qualified Code(s): E10.10 - Type 1 diabetes mellitus with ketoacidosis without coma ARF (acute renal failure) Qualifiers: Acute renal failure type: unspecified Qualified Code(s): N17.9 - Acute kidney failure, unspecified UTI (urinary tract infection) Qualifiers: Urinary tract infection type: acute cystitis Hematuria presence: with hematuria Qualified Code(s): N30.01 - Acute cystitis with hematuria Disposition: OP ADMIT IP TO THIS HOSP Is pt being admited?: Yes Condition: Critical Instructions: Diabetic Ketoacidosis (ED) Referrals: PRIMARY CARE, [Primary Care Provider] - 3-5 Days Time of Disposition: 22:23
[2017-05-29 20:41] LABS: Basophils % (Auto) 0.2 % (0.0-1.8); Eosinophils % (Auto) 0.1 % (0.0-4.3); Mean Corpuscular HGB Conc 26 % (30-34); Mean Corpuscular Hemoglobin 29 pg (28-32); Platelet Count 387 K/mm3 (140-440); Red Blood Count 3.79 M/mm3 (3.65-5.03); Red Cell Distribution Width 17.9 % (13.2-15.2); White Blood Count 8.2 K/mm3 (4.5-11.0)
[2017-05-29 20:46] LABS: Mean Corpuscular Volume 111 fl (79-97)
[2017-05-29 21:00] LABS: Albumin 3.4 g/dL (3.9-5); Bilirubin,Total 0.2 mg/dL (0.1-1.2); Calcium 8.8 mg/dL (8.4-10.2); Chloride 77.2 mmol/L (98-107); Total Protein 6.8 g/dL (6.3-8.2)
[2017-05-29 21:20] LABS: Hematocrit 39.5 % (30.3-42.9); Hemoglobin 10.8 gm/dl (10.1-14.3)
[2017-05-29] MEDS ORDERED: D50W (25GM) Syringe IV PRN (21:21)
[2017-05-29 21:22] LABS: Bacteria,Urine 1+ /HPF (Negative); Bilirubin,Urine NEG (Negative); Blood,Urine MOD (Negative); Ketones,Urine TR mg/dL (Negative); Leukocyte Esterase,Urine LG (Negative); Mucus,Urine FEW /HPF; Nitrite,Urine NEG (Negative); Urobilinogen,Urine < 2.0 mg/dL (<2.0)
[2017-05-29 21:23] LABS: WBC,Urine > 182.0 /HPF (0.0-6.0)
[2017-05-29] MEDS ORDERED: NACL 0.9% 1000 ML 1,000 ML IV ONE (21:25)
[2017-05-29] MEDS ORDERED: LEVAQUIN 750MG/150ML 750 MG/150 ML BAG IV ONE (21:33)
[2017-05-29] MEDS ORDERED: SODIUM BICARBONATE IV ONE (21:34)
--- NOTE | 2017-05-29 21:44 | History and Physical Report ---
History of Present Illness Date of examination: 05/29/17 History of present illness: 86-year-old lady with a history of diabetes, CVA was brought to the emergency room for fingerstick reading high. She is found to be in DKA and was started on IV fluids and insulin drip. The patient was discharged from the hospital on 05/23/1940 daily, urinary tract infection, was reported by the patient was not getting her an antibiotic for continued treatment of UTI. Patient is unable to give a history, review of system unobtainable PAST MEDICAL HISTORY:diabetes, CVA PAST SURGICAL HISTORY: peg FAMILY HISTORY:diabetes SOCIAL HISTORY: No alcohol, tobacco, drugs Medications and Allergies Allergies Allergy/AdvReac Type Severity Reaction Status Date / Time heparin AdvReac Bleeding Verified 05/20/17 18:51 Home Medications Medication Instructions Recorded Confirmed Last Taken Type AtorvaSTATin [Lipitor] 10 mg PO QHS 05/20/17 05/20/17 Unknown History Bethanechol Chloride 25 mg PO TID 05/20/17 05/20/17 Unknown History Cholecalciferol (Vitamin D3) 1,000 unit PO DAILY 05/20/17 05/20/17 Unknown History [Vitamin D3] Cyanocobalamin [Vitamin B-12] 2,000 mcg PO DAILY 05/20/17 05/20/17 Unknown History Insulin Lispro [Humalog] 0 unit SQ DAILY 05/20/17 05/20/17 Unknown History Lisinopril [Zestril TAB] 10 mg PO QDAY 05/20/17 05/20/17 Unknown History Multivitamin [Multiple Vitamins] 1 each PO DAILY 05/20/17 05/20/17 Unknown History Omeprazole 20 mg PO QHS 05/20/17 05/20/17 Unknown History amLODIPine [Norvasc] 5 mg PO DAILY 05/20/17 05/20/17 Unknown History levETIRAcetam [Keppra ORAL LIQ] 500 mg PO BID 05/20/17 05/20/17 Unknown History oxyCODONE [Roxicodone TAB] 5 mg PO Q6HR PRN 05/20/17 05/20/17 Unknown History Levofloxacin [Levaquin TAB] 500 mg PO QDAY #3 tablet 05/23/17 Unknown Rx Tresiba 5 units SQ QDAY 05/23/17 Unknown Rx Active Meds: Active Medications Dextrose (D50w (25gm) Syringe) 0 ml IV PRN PRN PRN Reason: Hypoglycemia Calcium Gluconate 1,000 mg/ (Sodium Chloride) 110 mls @ 660 mls/hr IV ONCE.ED ONE Stop: 05/29/17 22:10 Insulin Human Regular 100 (units/ Sodium Chloride) 100 mls @ 6 mls/hr IV TITR DENNIS; 6 UNITS/HR PRN Reason: Protocol Sodium Chloride (Nacl 0.9% 1000 Ml) 1,000 mls @ 999 mls/hr IV BOLUS ONE Stop: 05/29/17 22:25 Levofloxacin/Dextrose (Levaquin 750mg/150ml) 750 mg in 150 mls @ 100 mls/hr IV ONCE ONE Stop: 05/29/17 23:02 Exam - Physical Exam Narrative exam: Gen. appearance: Patient lying in bed in no acute distress HEENT: Normocephalic/atraumatic, pupils equal round reactive to light, extra occular movement intact, no scleral icterus, no JVD or thyromegaly or nodule, neck is supple, mucous membrane moist, no erythema or exudate Heart: S1-S2, regular rate and rhythm Lungs: Clear to auscultation bilateral breathing comfortable Abdomen: Positive bowel sounds, nontender, nondistended, no organomegaly Extremities: No edema, cyanosis, clubbing Neuro:: cranial nerves II-12 intact, speech Skin: No rash, nodules, warm dry Results - Labs CBC & Chem 7: 05/29/17 20:31 05/29/17 21:37 Labs: Abnormal lab results 05/29/17 05/29/17 05/29/17 Range/Units 20:22 20:22 20:31 MCV 111 H (79-97) fl MCHC 26 L (30-34) % RDW 17.9 H (13.2-15.2) % Lymph % (Auto) 6.4 L (13.4-35.0) % [place] % (Auto) 7.6 H (0.0-7.3) % Lymph # 0.5 L (1.2-5.4) K/mm3 Seg Neutrophils % 85.7 H (40.0-70.0) % VBG pH (7.320-7.420) Sodium 121 L (137-145) mmol/L Potassium 6.0 H (3.6-5.0) mmol/L Chloride 77.2 L (98-107) mmol/L Carbon Dioxide 2 L* (22-30) mmol/L BUN 40 H (7-17) mg/dL Creatinine 1.8 H (0.7-1.2) mg/dL Glucose 1119 H* (65-100) mg/dL Lactic Acid 13.00 H* (0.7-2.0) mmol/L AST 107 H (5-40) units/L Alkaline Phosphatase 139 H (35-129) units/L Albumin 3.4 L (3.9-5) g/dL Urine WBC (Auto) (0.0-6.0) /HPF 05/29/17 05/29/17 Range/Units 20:40 Unknown MCV (79-97) fl MCHC (30-34) % RDW (13.2-15.2) % Lymph % (Auto) (13.4-35.0) % [place] % (Auto) (0.0-7.3) % Lymph # (1.2-5.4) K/mm3 Seg Neutrophils % (40.0-70.0) % VBG pH 7.035 L* (7.320-7.420) Sodium (137-145) mmol/L Potassium (3.6-5.0) mmol/L Chloride (98-107) mmol/L Carbon Dioxide (22-30) mmol/L BUN (7-17) mg/dL Creatinine (0.7-1.2) mg/dL Glucose (65-100) mg/dL Lactic Acid (0.7-2.0) mmol/L AST (5-40) units/L Alkaline Phosphatase (35-129) units/L Albumin (3.9-5) g/dL Urine WBC (Auto) > 182.0 H (0.0-6.0) /HPF Assessment and Plan Assessment DKA Acute renal failure Metabolic acidosis Urinary tract infection Plan Admit to medicine Continue IV fluids and insulin drip Check blood sugar, chemistry Consult critical care, start IV Rocephin DVT prophylaxis
[2017-05-29] MEDS ORDERED: TYLENOL PO PRN (21:58)
[2017-05-29] MEDS ORDERED: ZOFRAN IV PRN (21:58)
[2017-05-29] MEDS ORDERED: DULCOLAX PR PRN (21:58)
[2017-05-29] MEDS ORDERED: ROCEPHIN/NS 1 GM/50 ML 1 GM/50 ML BAG IV SCH (22:00)
[2017-05-29] MEDS ORDERED: D5/0.45NS 1,000 ML IV SCH (22:00)
[2017-05-29] MEDS ORDERED: NovoLIN R 100 UNITS in NACL 0.9% 99 ML IV SCH (22:00)
[2017-05-29] MEDS ORDERED: CALCIUM GLUCONATE 1,000 MG in NACL 0.9% 100 ML IV ONE (22:01)
[2017-05-29 22:06] LABS: Calcium 8.5 mg/dL (8.4-10.2); Chloride 77.3 mmol/L (98-107); Magnesium 2.5 mg/dL (1.7-2.3); Phosphorous 7.2 mg/dL (2.5-4.5); Potassium 5.5 mmol/L (3.6-5.0)
[2017-05-29 22:10] LABS: ISTAT Base Excess -26; ISTAT PCO2 19.8 (35-45); ISTAT PH 7.008 (7.35-7.45); ISTAT PO2 175 (80-105); ISTAT SO2 99; ISTAT TCO2 6
[2017-05-29] MEDS: ROCEPHIN 1 GM in NACL 0.9% 20 ML IV SCH (22:41)
[2017-05-29] MEDS ORDERED: NACL 0.9% 1000 ML 1,000 ML IV SCH (23:00)
[2017-05-29 23:42] LABS: Calcium 8.5 mg/dL (8.4-10.2)
[2017-05-29 23:43] LABS: Chloride 85.9 mmol/L (98-107); Potassium 4.7 mmol/L (3.6-5.0)
[2017-05-30 02:23] LABS: Calcium 8.9 mg/dL (8.4-10.2); Chloride 89.9 mmol/L (98-107); Potassium 4.8 mmol/L (3.6-5.0)
[2017-05-30 04:32] LABS: Calcium 8.9 mg/dL (8.4-10.2); Chloride 94.2 mmol/L (98-107); Potassium 4.8 mmol/L (3.6-5.0)
[2017-05-30 07:03] LABS: Calcium 8.7 mg/dL (8.4-10.2); Chloride 95.5 mmol/L (98-107); Potassium 4.5 mmol/L (3.6-5.0)
[2017-05-30] MEDS ORDERED: NACL 0.9% 1000 ML 1,000 ML IV SCH (11:00)
--- NOTE | 2017-05-30 11:37 | Progress Note ---
Assessment and Plan /DKA - Patient was treated according to DKA protocol and resolved - Anion gap closed, co2 normalized - will stop insulin drip, cont NS and SSI with long acting detemir /DM with hyperglycemia - We will start detemir - Continue sliding scale insulin coverage - Patient started on diabetic diet /UTI - cont her on ceftriaxone - will follow the culture result /Weakness debility - Consult for PT, case management , evaluation for rehab placement /Metabolic Acidosis due to DKA - resolved with fluid and insulin - her bicarb is 21 this morning /Sub dural hematoma X2, she had removal of subdural hematoma x1 - cont frequent neuro exam - avoid heparin product /LUCINDA - cont iv fluid, renal function improving /DVT prophylaxis - SCDs /Disposition - will monitor in the ICU. - if stable [facility] Brief History: 86-year-old female with past medical history significant for diabetes mellitus, subdural hematoma, phlebitis admitted to ICU for the management of DKA. Patient has G-tube, but she is able to eat by mouth. She was just discharged about a week ago after treating for similar DKA episode. Hospitalist Physical Not in cardiopulmonary distress. The patient is emaciated. Vital signs as documented. Head exam is unremarkable. No scleral icterus . Neck is without jugular venous distension, thyromegaly, or carotid bruits. Lungs are clear to auscultation. Cardiac exam reveals regular rate and Rhythm. Abdominal G-tube in place. Extremities are nonedematous and both femoral and pedal pulses are normal. 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 LUE weakness Subjective Date of service: 05/30/17 Interval history: Patient was seen and evaluated this morning, patient said she was hungry, she wants to eat. I have discussed the management plan with her son and Dr Donovan who is a member of [facility]. Objective - Constitutional Vitals: Vital Signs - 12hr 05/29/17 05/30/17 05/30/17 23:45 00:00 00:15 Temperature Pulse Rate 90 87 88 Pulse Rate [ Right Radial] Respiratory 13 12 13 Rate Blood Pressure 100/41 106/43 106/43 O2 Sat by Pulse 99 99 99 Oximetry 05/30/17 05/30/17 05/30/17 00:45 01:00 02:00 Temperature 97.3 F L Pulse Rate Pulse Rate [ 102 H 98 H Right Radial] Respiratory 14 14 15 Rate Blood Pressure 126/54 116/45 O2 Sat by Pulse 100 100 99 Oximetry 05/30/17 05/30/17 05/30/17 02:47 02:51 03:01 Temperature Pulse Rate 100 H 103 H 104 H Pulse Rate [ Right Radial] Respiratory 12 11 L 11 L Rate Blood Pressure 122/50 O2 Sat by Pulse 100 100 100 Oximetry 05/30/17 05/30/17 05/30/17 04:00 04:05 05:01 Temperature 97.5 F L Pulse Rate 97 H 100 H Pulse Rate [ Right Radial] Respiratory 13 14 10 L Rate Blood Pressure 118/53 122/49 O2 Sat by Pulse 100 100 100 Oximetry 05/30/17 05/30/17 05/30/17 06:01 07:00 08:00 Temperature 97.4 F L Pulse Rate 96 H 96 H 95 H Pulse Rate [ Right Radial] Respiratory 13 13 14 Rate Blood Pressure 125/52 132/49 120/51 O2 Sat by Pulse 100 100 100 Oximetry 05/30/17 09:00 Temperature Pulse Rate 98 H Pulse Rate [ Right Radial] Respiratory 12 Rate Blood Pressure 124/50 O2 Sat by Pulse 100 Oximetry - Labs CBC & Chem 7: 05/29/17 20:31 05/30/17 05:38 Labs: Abnormal lab results 05/29/17 05/29/17 05/29/17 Range/Units 20:22 20:22 20:31 MCV 111 H (79-97) fl MCHC 26 L (30-34) % RDW 17.9 H (13.2-15.2) % Lymph % (Auto) 6.4 L (13.4-35.0) % [place] % (Auto) 7.6 H (0.0-7.3) % Lymph # 0.5 L (1.2-5.4) K/mm3 Seg Neutrophils % 85.7 H (40.0-70.0) % POC ABG pH (7.35-7.45) POC ABG pCO2 (35-45) POC ABG pO2 (80-105) VBG pH (7.320-7.420) Sodium 121 L (137-145) mmol/L Potassium 6.0 H (3.6-5.0) mmol/L Chloride 77.2 L (98-107) mmol/L Carbon Dioxide 2 L* (22-30) mmol/L BUN 40 H (7-17) mg/dL Creatinine 1.8 H (0.7-1.2) mg/dL Glucose 1119 H* (65-100) mg/dL POC Glucose (70-105) Lactic Acid 13.00 H* (0.7-2.0) mmol/L Phosphorus (2.5-4.5) mg/dL Magnesium (1.7-2.3) mg/dL AST 107 H (5-40) units/L Alkaline Phosphatase 139 H (35-129) units/L Albumin 3.4 L (3.9-5) g/dL Urine WBC (Auto) (0.0-6.0) /HPF 05/29/17 05/29/17 05/29/17 Range/Units 20:40 21:37 21:37 MCV (79-97) fl MCHC (30-34) % RDW (13.2-15.2) % Lymph % (Auto) (13.4-35.0) % [place] % (Auto) (0.0-7.3) % Lymph # (1.2-5.4) K/mm3 Seg Neutrophils % (40.0-70.0) % POC ABG pH (7.35-7.45) POC ABG pCO2 (35-45) POC ABG pO2 (80-105) VBG pH 7.035 L* (7.320-7.420) Sodium 123 L (137-145) mmol/L Potassium 5.5 H (3.6-5.0) mmol/L Chloride 77.3 L (98-107) mmol/L Carbon Dioxide 4 L* (22-30) mmol/L BUN 43 H (7-17) mg/dL Creatinine 1.7 H (0.7-1.2) mg/dL Glucose 1025 H* (65-100) mg/dL POC Glucose (70-105) Lactic Acid (0.7-2.0) mmol/L Phosphorus 7.20 H (2.5-4.5) mg/dL Magnesium 2.50 H (1.7-2.3) mg/dL AST (5-40) units/L Alkaline Phosphatase (35-129) units/L Albumin (3.9-5) g/dL Urine WBC (Auto) (0.0-6.0) /HPF 05/29/17 05/29/17 05/29/17 Range/Units 22:08 23:07 23:56 MCV (79-97) fl MCHC (30-34) % RDW (13.2-15.2) % Lymph % (Auto) (13.4-35.0) % [place] % (Auto) (0.0-7.3) % Lymph # (1.2-5.4) K/mm3 Seg Neutrophils % (40.0-70.0) % POC ABG pH 7.008 L (7.35-7.45) POC ABG pCO2 19.8 L (35-45) POC ABG pO2 175 H (80-105) VBG pH (7.320-7.420) Sodium 130 L D (137-145) mmol/L Potassium (3.6-5.0) mmol/L Chloride 85.9 L (98-107) mmol/L Carbon Dioxide 7 L* (22-30) mmol/L BUN 39 H (7-17) mg/dL Creatinine 1.7 H (0.7-1.2) mg/dL Glucose 786 H* (65-100) mg/dL POC Glucose > 500 H (70-105) Lactic Acid (0.7-2.0) mmol/L Phosphorus (2.5-4.5) mg/dL Magnesium (1.7-2.3) mg/dL AST (5-40) units/L Alkaline Phosphatase (35-129) units/L Albumin (3.9-5) g/dL Urine WBC (Auto) (0.0-6.0) /HPF 05/29/17 05/30/17 05/30/17 Range/Units Unknown 01:16 01:30 MCV (79-97) fl MCHC (30-34) % RDW (13.2-15.2) % Lymph % (Auto) (13.4-35.0) % [place] % (Auto) (0.0-7.3) % Lymph # (1.2-5.4) K/mm3 Seg Neutrophils % (40.0-70.0) % POC ABG pH (7.35-7.45) POC ABG pCO2 (35-45) POC ABG pO2 (80-105) VBG pH (7.320-7.420) Sodium 133 L (137-145) mmol/L Potassium (3.6-5.0) mmol/L Chloride 89.9 L (98-107) mmol/L Carbon Dioxide 11 L (22-30) mmol/L BUN 38 H (7-17) mg/dL Creatinine 1.5 H (0.7-1.2) mg/dL Glucose 528 H* (65-100) mg/dL POC Glucose 498 H (70-105) Lactic Acid (0.7-2.0) mmol/L Phosphorus (2.5-4.5) mg/dL Magnesium (1.7-2.3) mg/dL AST (5-40) units/L Alkaline Phosphatase (35-129) units/L Albumin (3.9-5) g/dL Urine WBC (Auto) > 182.0 H (0.0-6.0) /HPF 05/30/17 05/30/17 05/30/17 Range/Units 02:01 03:14 03:50 MCV (79-97) fl MCHC (30-34) % RDW (13.2-15.2) % Lymph % (Auto) (13.4-35.0) % [place] % (Auto) (0.0-7.3) % Lymph # (1.2-5.4) K/mm3 Seg Neutrophils % (40.0-70.0) % POC ABG pH (7.35-7.45) POC ABG pCO2 (35-45) POC ABG pO2 (80-105) VBG pH (7.320-7.420) Sodium 134 L (137-145) mmol/L Potassium (3.6-5.0) mmol/L Chloride 94.2 L (98-107) mmol/L Carbon Dioxide 14 L (22-30) mmol/L BUN 37 H (7-17) mg/dL Creatinine 1.4 H (0.7-1.2) mg/dL Glucose 286 H (65-100) mg/dL POC Glucose 426 H 462 H (70-105) Lactic Acid (0.7-2.0) mmol/L Phosphorus (2.5-4.5) mg/dL Magnesium (1.7-2.3) mg/dL AST (5-40) units/L Alkaline Phosphatase (35-129) units/L Albumin (3.9-5) g/dL Urine WBC (Auto) (0.0-6.0) /HPF 05/30/17 05/30/17 05/30/17 Range/Units 04:01 05:33 05:38 MCV (79-97) fl MCHC (30-34) % RDW (13.2-15.2) % Lymph % (Auto) (13.4-35.0) % [place] % (Auto) (0.0-7.3) % Lymph # (1.2-5.4) K/mm3 Seg Neutrophils % (40.0-70.0) % POC ABG pH (7.35-7.45) POC ABG pCO2 (35-45) POC ABG pO2 (80-105) VBG pH (7.320-7.420) Sodium 135 L (137-145) mmol/L Potassium (3.6-5.0) mmol/L Chloride 95.5 L (98-107) mmol/L Carbon Dioxide 21 L D (22-30) mmol/L BUN 36 H (7-17) mg/dL Creatinine 1.3 H (0.7-1.2) mg/dL Glucose 151 H (65-100) mg/dL POC Glucose 289 H 290 H (70-105) Lactic Acid (0.7-2.0) mmol/L Phosphorus (2.5-4.5) mg/dL Magnesium (1.7-2.3) mg/dL AST (5-40) units/L Alkaline Phosphatase (35-129) units/L Albumin (3.9-5) g/dL Urine WBC (Auto) (0.0-6.0) /HPF 05/30/17 05/30/17 05/30/17 Range/Units 06:38 07:18 08:12 MCV (79-97) fl MCHC (30-34) % RDW (13.2-15.2) % Lymph % (Auto) (13.4-35.0) % [place] % (Auto) (0.0-7.3) % Lymph # (1.2-5.4) K/mm3 Seg Neutrophils % (40.0-70.0) % POC ABG pH (7.35-7.45) POC ABG pCO2 (35-45) POC ABG pO2 (80-105) VBG pH (7.320-7.420) Sodium (137-145) mmol/L Potassium (3.6-5.0) mmol/L Chloride (98-107) mmol/L Carbon Dioxide (22-30) mmol/L BUN (7-17) mg/dL Creatinine (0.7-1.2) mg/dL Glucose (65-100) mg/dL POC Glucose 174 H 126 H 132 H (70-105) Lactic Acid (0.7-2.0) mmol/L Phosphorus (2.5-4.5) mg/dL Magnesium (1.7-2.3) mg/dL AST (5-40) units/L Alkaline Phosphatase (35-129) units/L Albumin (3.9-5) g/dL Urine WBC (Auto) (0.0-6.0) /HPF
[2017-05-30] MEDS ORDERED: NON-FORMULARY (Cholecalciferol (Vitamin D3) [Vitamin D3] 1,000 UNIT) PO SCH (11:45)
--- NOTE | 2017-05-30 11:52 | Consultation ---
History of Present Illness Consult date: 05/30/17 Requesting physician: BRIAN PARKS Reason for consult: other (DKA) History of present illness: PULMONARY/CCM CONSULT NOTE (Full dictation # [id number]) Please see dictated notes for full details Medications and Allergies Allergies Allergy/AdvReac Type Severity Reaction Status Date / Time heparin AdvReac Bleeding Verified 05/20/17 18:51 Home Medications Medication Instructions Recorded Confirmed Last Taken Type AtorvaSTATin [Lipitor] 10 mg PO QHS 05/20/17 05/20/17 Unknown History Bethanechol Chloride 25 mg PO TID 05/20/17 05/20/17 Unknown History Cholecalciferol (Vitamin D3) 1,000 unit PO DAILY 05/20/17 05/20/17 Unknown History [Vitamin D3] Cyanocobalamin [Vitamin B-12] 2,000 mcg PO DAILY 05/20/17 05/20/17 Unknown History Insulin Lispro [Humalog] 0 unit SQ DAILY 05/20/17 05/20/17 Unknown History Lisinopril [Zestril TAB] 10 mg PO QDAY 05/20/17 05/20/17 Unknown History Multivitamin [Multiple Vitamins] 1 each PO DAILY 05/20/17 05/20/17 Unknown History Omeprazole 20 mg PO QHS 05/20/17 05/20/17 Unknown History amLODIPine [Norvasc] 5 mg PO DAILY 05/20/17 05/20/17 Unknown History levETIRAcetam [Keppra ORAL LIQ] 500 mg PO BID 05/20/17 05/20/17 Unknown History oxyCODONE [Roxicodone TAB] 5 mg PO Q6HR PRN 05/20/17 05/20/17 Unknown History Levofloxacin [Levaquin TAB] 500 mg PO QDAY #3 tablet 05/23/17 Unknown Rx Tresiba 5 units SQ QDAY 05/23/17 Unknown Rx Active Meds: Active Medications Acetaminophen (Tylenol) 650 mg PO Q4H PRN PRN Reason: Pain MILD(1-3)/Fever >100.5/BENNETT Atorvastatin Calcium (Lipitor) 10 mg PO QHS DENNIS Bethanechol Chloride (Urecholine) 25 mg PO TID DENNIS Bisacodyl (Dulcolax) 10 mg NV QDAY PRN PRN Reason: Constipation unrelieved by MOM Cholecalciferol (Vitamin D3) 1,000 unit PO DAILY [facility] Cyanocobalamin (Vitamin B-12) 2,000 mcg PO DAILY DENNIS Dextrose (D50w (25gm) Syringe) 0 ml IV PRN PRN PRN Reason: Hypoglycemia Ceftriaxone Sodium 1 gm/ (Sodium Chloride) 20 mls @ 2 mls/min IV Q24H DENNIS Last Admin: 05/29/17 22:41 Dose: 2 mls/min Sodium Chloride (Nacl 0.9% 1000 Ml) 1,000 mls @ 100 mls/hr IV DIRECT DENNIS Insulin Detemir (Levemir) 5 units SUB-Q QHS DENNIS Insulin Human Regular (Novolin R) 0 units SUB-Q ACHS DENNIS PRN Reason: Protocol Levetiracetam (Keppra) 500 mg PO BID DENNIS Miscellaneous Medication (Multivitamin [Multiple Vitamins]) 1 each PO DAILY DENNIS Miscellaneous Medication (Omeprazole [Omeprazole]) 20 mg PO QHS DENNIS Ondansetron HCl (Zofran) 4 mg IV Q8H PRN PRN Reason: N/V unrelieved by Reglan Oxycodone HCl (Roxicodone) 5 mg PO Q6HR PRN PRN Reason: Pain Physical Examination Vital signs: Vital Signs BP Pulse Ox 118/37 100 05/29/17 20:11 05/29/17 20:11 Results - Laboratory Findings CBC and BMP: 05/29/17 20:31 05/30/17 05:38 ABG POC ABG pH 7.008 (7.35-7.45) L 05/29/17 22:08 POC ABG pCO2 19.8 (35-45) L 05/29/17 22:08 POC ABG pO2 175 (80-105) H 05/29/17 22:08 POC ABG HCO3 5.0 05/29/17 22:08 POC ABG Total CO2 6 05/29/17 22:08 POC ABG O2 Sat 99 05/29/17 22:08 Abnormal lab findings: Abnormal Labs 05/29/17 05/29/17 05/29/17 20:22 20:22 20:31 MCV 111 H MCHC 26 L RDW 17.9 H Lymph % (Auto) 6.4 L [place] % (Auto) 7.6 H Lymph # 0.5 L Seg Neutrophils % 85.7 H POC ABG pH POC ABG pCO2 POC ABG pO2 VBG pH Sodium 121 L Potassium 6.0 H Chloride 77.2 L Carbon Dioxide 2 L* BUN 40 H Creatinine 1.8 H Glucose 1119 H* POC Glucose Lactic Acid 13.00 H* Phosphorus Magnesium AST 107 H Alkaline Phosphatase 139 H Albumin 3.4 L Urine WBC (Auto) 05/29/17 05/29/17 05/29/17 20:40 21:37 21:37 MCV MCHC RDW Lymph % (Auto) [place] % (Auto) Lymph # Seg Neutrophils % POC ABG pH POC ABG pCO2 POC ABG pO2 VBG pH 7.035 L* Sodium 123 L Potassium 5.5 H Chloride 77.3 L Carbon Dioxide 4 L* BUN 43 H Creatinine 1.7 H Glucose 1025 H* POC Glucose Lactic Acid Phosphorus 7.20 H Magnesium 2.50 H AST Alkaline Phosphatase Albumin Urine WBC (Auto) 05/29/17 05/29/17 05/29/17 22:08 23:07 23:56 MCV MCHC RDW Lymph % (Auto) [place] % (Auto) Lymph # Seg Neutrophils % POC ABG pH 7.008 L POC ABG pCO2 19.8 L POC ABG pO2 175 H VBG pH Sodium 130 L D Potassium Chloride 85.9 L Carbon Dioxide 7 L* BUN 39 H Creatinine 1.7 H Glucose 786 H* POC Glucose > 500 H Lactic Acid Phosphorus Magnesium AST Alkaline Phosphatase Albumin Urine WBC (Auto) 05/29/17 05/30/17 05/30/17 Unknown 01:16 01:30 MCV MCHC RDW Lymph % (Auto) [place] % (Auto) Lymph # Seg Neutrophils % POC ABG pH POC ABG pCO2 POC ABG pO2 VBG pH Sodium 133 L Potassium Chloride 89.9 L Carbon Dioxide 11 L BUN 38 H Creatinine 1.5 H Glucose 528 H* POC Glucose 498 H Lactic Acid Phosphorus Magnesium AST Alkaline Phosphatase Albumin Urine WBC (Auto) > 182.0 H 05/30/17 05/30/17 05/30/17 02:01 03:14 03:50 MCV MCHC RDW Lymph % (Auto) [place] % (Auto) Lymph # Seg Neutrophils % POC ABG pH POC ABG pCO2 POC ABG pO2 VBG pH Sodium 134 L Potassium Chloride 94.2 L Carbon Dioxide 14 L BUN 37 H Creatinine 1.4 H Glucose 286 H POC Glucose 426 H 462 H Lactic Acid Phosphorus Magnesium AST Alkaline Phosphatase Albumin Urine WBC (Auto) 05/30/17 05/30/17 05/30/17 04:01 05:33 05:38 MCV MCHC RDW Lymph % (Auto) [place] % (Auto) Lymph # Seg Neutrophils % POC ABG pH POC ABG pCO2 POC ABG pO2 VBG pH Sodium 135 L Potassium Chloride 95.5 L Carbon Dioxide 21 L D BUN 36 H Creatinine 1.3 H Glucose 151 H POC Glucose 289 H 290 H Lactic Acid Phosphorus Magnesium AST Alkaline Phosphatase Albumin Urine WBC (Auto) 05/30/17 05/30/17 05/30/17 06:38 07:18 08:12 MCV MCHC RDW Lymph % (Auto) [place] % (Auto) Lymph # Seg Neutrophils % POC ABG pH POC ABG pCO2 POC ABG pO2 VBG pH Sodium Potassium Chloride Carbon Dioxide BUN Creatinine Glucose POC Glucose 174 H 126 H 132 H Lactic Acid Phosphorus Magnesium AST Alkaline Phosphatase Albumin Urine WBC (Auto)
[2017-05-30] MEDS ORDERED: ROXICODONE PO PRN (12:00)
[2017-05-30 13:58] LABS: Calcium 8.3 mg/dL (8.4-10.2); Chloride 96.5 mmol/L (98-107); Potassium 4.6 mmol/L (3.6-5.0)
[2017-05-30] MEDS: URECHOLINE PO SCH ×2 (14:12→23:12)
[2017-05-30] MEDS: VITAMIN B-12 PO SCH (14:27)
[2017-05-30] MEDS: VITAMIN D3 PO SCH (14:27)
[2017-05-30] MEDS: KEPPRA PO SCH ×2 (14:27→23:11)
[2017-05-30 21:24] LABS: Potassium 4.9 mmol/L (3.6-5.0)
[2017-05-30] MEDS ORDERED: NON-FORMULARY (Omeprazole [Omeprazole] 20 MG) PO SCH (22:00)
[2017-05-30] MEDS ORDERED: LEVEMIR SUB-Q SCH (22:00)
[2017-05-30] MEDS: PROTONIX PO SCH (23:11)
[2017-05-30] MEDS: ROCEPHIN 1 GM in NACL 0.9% 20 ML IV SCH (23:12)
--- NOTE | 2017-05-31 01:26 | Consultation ---
PULMONARY CRITICAL CARE CONSULTATION CONSULTING PHYSICIAN: Dr. Gabriel. REASON FOR CONSULTATION: DKA. CHIEF COMPLAINT AND HISTORY OF PRESENT ILLNESS: The patient is an 86-year-old [place] female with past medical history indeed significant for diabetes, recently admitted, I believe with diabetic ketoacidosis about a week ago, diagnosed with a UTI, at that time was discharged to her extended care facility with Levaquin. It seems like she was not getting antibiotic over there. There was a concern for persistent UTI, mental status was altered. Blood sugar was read as critically high. She was brought into the ER. In the ER, blood pressure was I believe over 1000. She does have a recent right-sided subdural hematoma with some residual left-sided weakness, unable to give much of a history. She was evaluated in the Emergency Room, diagnosed with diabetic ketoacidosis. I did get a call about the need for giving 3 amps of bicarbonate IV push, I believe at the time on a venous pH, I did discuss getting an arterial blood gas with the ER doctor. At the time she was hemodynamically stable, I asked that one amp to be pushed and then they should get the ABG, if she remains hemodynamically stable and there was no significant acid base disturbance by which I mean something below ____ if she was unstable, then she could receive more bicarbonate. When I stopped by to see her today, she was actually been just about to be transitioned off the DKA protocol. Hemodynamically, she has remained stable. I do not have any history of cough or expectoration, vomiting, or overt aspiration. The patient is not a current smoker. No history of remote tobacco smoke. This is much of the history of presentation as I have. PAST MEDICAL HISTORY: Again, diabetes, cerebrovascular accident, anemia, history of DVT. PAST SURGICAL HISTORY: She has had a craniotomy for evacuation of intracranial hemorrhage. She has had a G-tube placed. MEDICATIONS: She was on at the time I stopped by to see her included the following, IV insulin drip had been going I believe at 2 units per hour. That has been turned off. Rocephin 1 gram IV daily. Detemir insulin 5 units subQ at bedtime, Keppra 500 mg p.o. b.i.d. was about to be started, Zofran 4 mg IV q. 8 hours p.r.n. nausea and vomiting, Protonix 20 mg p.o. at bedtime was about to be started as well as insulin via sliding scale. ALLERGIES: HEPARIN, NATURE OF THIS ALLERGY IS UNKNOWN. DIET: Thin lady, acute weight loss or gain, history is unknown. FAMILY AND SOCIAL HISTORY: Resident of her extended care facility. No current alcohol, tobacco, or illicit drug use or abuse. Remote history is unknown. REVIEW OF SYSTEMS: Difficult to obtain secondary to the patient's medical and mental condition. Since she has been here, no gross hematochezia or melena, no gross hematuria, no hematemesis, no hemoptysis, no emesis, no seizures. Review of systems otherwise as in the body of the history above. PHYSICAL EXAMINATION: VITAL SIGNS: On examination at presentation in the Emergency Room, vital signs she was hypothermic, temperature 94.7 rectally, pulse 99, respiratory rate 24, blood pressure 118/37, oxygen sats were 100%, inspired oxygen concentration was not recorded. When I saw her, she was on 2 liters nasal cannula, O2 sats in the 90s. GENERAL: She is an elderly looking [place] female, looks her stated age, able to respond without overt use of accessory muscles of respiration. I would say mild distress. HEAD, EYES, EARS, NOSE AND THROAT: She is normocephalic, atraumatic. She was anicteric. No conjunctival erythema. No gross jugular venous distention. Oropharynx is a Mallampati #2 oropharynx. Oropharynx was moist. Grossly, no thyromegaly, grossly no palpable lymph nodes in the supraclavicular or submandibular lymph node chains. LUNGS: Auscultation of both lung sanchez are unremarkable, really faint inspiratory basilar crackles, no wheezing. Good bilateral air movement otherwise. HEART: Heart sounds 1 and 2 are heard, regular in rate and rhythm. At the time of my evaluation, she did have a soft systolic murmur. No rubs. ABDOMEN: Soft. Bowel sounds are positive, nontender. No palpable hepatosplenomegaly. EXTREMITIES: Without overt digital clubbing, cyanosis, no pedal edema. Dorsalis pedis pulses were palpable bilaterally. NEUROLOGIC: The pupils were equal, round, about 3 mm, reactive to light. Extraocular muscle movements appeared intact. She moved all 4 extremities spontaneously, was a little bit weak on the left upper extremity in particular. No fasciculations. No spasticity. The skin was of normal turgor, no tenting, no rash, no cellulitis. LABORATORY DATA: From my review are as follows: White cell count 8200 with a hemoglobin of 10.8, hematocrit of 39.5, platelet count was 387. Arterial blood gas at presentation showed a pH of 7.01, pCO2 of 20, pO2 of 175, that was on 2 liters nasal cannula. Serum sodium was 130, potassium 4.7, chloride 86, bicarbonate 7, BUN 39, creatinine 1.7, glucose was 786. Lactic acid level was elevated at 13.0. Phosphorus and mag were elevated. AST 107. Albumin slightly reduced at 3.5. Urinalysis showed large leukocyte esterase, greater than ____ white cells per high power field. Most recent blood test shows serum sodium of 135, potassium of 4.5, chloride of 96, bicarbonate of 21, BUN 36, creatinine 1.3. Anion gap is closed at this point, blood cultures no growth to date. I do not have any x-ray. ASSESSMENT: 1. Sepsis syndrome. 2. Diabetic ketoacidosis. 3. Urinary tract infection, unclear if it is colonization at this point. 4. Adult failure to thrive. 5. Uncontrolled diabetes. PLAN: Okay to transition to off the DKA protocol. In the short time I will have Accu-Cheks done q. 4 hours as she is historically brittle diabetic. Long acting insulin will be continued as ordered, but we will take care to watch her serum glucose closely. I will repeat the lactic acid level. We will continue the Rocephin as ordered. This is going to be based on the prior sensitivities, which showed that indeed she was sensitive to ceftriaxone. Oxygen will be weaned to keep sats greater than or equal to about 92%-94%. I will get a chest x-ray just to make sure we are not dealing with a pneumonia or an occult aspiration event at the extended care facilities. She is appropriately on GI prophylaxis. DVT prophylaxis is in the form of SCDs. She has a heparin allergy. It is unclear what that allergy is at this time. Flu and pneumonia vaccination will be addressed per protocol. Thank you very much for the consult, Dr. Gabriel. We will follow along and make further recommendations as picture progresses/becomes clearer. She is showing improvement. We will watch her in the short time as we transition her off the IV insulin therapy and possibly she will be transferred to the telemetry unit later today. JOB# [id number] JEFF/ROBERTA
[2017-05-31] MEDS ORDERED: LEVEMIR SUB-Q SCH ×2 (08:00)
[2017-05-31 08:34] LABS: Calcium 8.1 mg/dL (8.4-10.2); Chloride 98.8 mmol/L (98-107); Potassium 4.7 mmol/L (3.6-5.0)
[2017-05-31] MEDS ORDERED: NON-FORMULARY (Multivitamin [Multiple Vitamins] 1 EACH) PO SCH (10:00)
[2017-05-31] MEDS: VITAMIN D3 PO SCH (12:36)
[2017-05-31] MEDS: LEVEMIR SUB-Q SCH (12:36)
[2017-05-31] MEDS: VITAMIN B-12 PO SCH (12:55)
[2017-05-31] MEDS: KEPPRA PO SCH ×2 (12:56→21:48)
[2017-05-31] MEDS: LIDODERM 5% TD SCH ×2 (12:56→16:00)
[2017-05-31] MEDS: URECHOLINE PO SCH ×3 (12:57→20:50)
[2017-05-31] MEDS: THERAGRAN Tab PO SCH (12:58)
--- NOTE | 2017-05-31 15:34 | Progress Note ---
Assessment and Plan /DKA - Patient was treated according to DKA protocol and resolved - Anion gap closed, co2 normalized - stopped insulin drip, - cont on SSI with long acting detemir - cont detemir 5 unit in the am /DM with hyperglycemia - Continue sliding scale insulin coverage with detemir - Patient started on diabetic diet /UTI - cont her on ceftriaxone - will follow the culture result /Weakness debility - Consult for PT, case management , evaluation for rehab placement /Metabolic Acidosis due to DKA - resolved with fluid and insulin /Sub dural hematoma X2, she had removal of subdural hematoma x1 - cont frequent neuro exam - avoid heparin product /LUCINDA - cont iv fluid, renal function improved /left arm pain and swelling - order left arm xry and venous doppler /DVT prophylaxis - SCDs Brief History: 86-year-old [place] female with past medical history significant for diabetes mellitus, subdural hematoma, phlebitis admitted to ICU for the management of DKA. Patient has G-tube, but she is able to eat by mouth. She was just discharged about a week ago after treating for similar DKA episode. Hospitalist Physical Not in cardiopulmonary distress. The patient is emaciated. Vital signs as documented. Head exam is unremarkable. No scleral icterus . Neck is without jugular venous distension, thyromegaly, or carotid bruits. Lungs are clear to auscultation. Cardiac exam reveals regular rate and Rhythm. Abdominal G-tube in place. Extremities are nonedematous and both femoral and pedal pulses are normal. [employer]: Alert and oriented 3. LUE weakness Subjective Date of service: 05/31/17 Interval history: Patient was seen and evaluated this morning. I have discussed the management plan with her son Zion who is a member of [facility]. BG was 63 this am. c/o left arm pain Objective - Constitutional Vitals: Vital Signs - 12hr 05/31/17 05/31/17 04:32 07:49 Temperature 98.6 F Respiratory 20 Rate Blood Pressure 120/54 O2 Sat by Pulse 96 97 Oximetry - Labs CBC & Chem 7: 05/29/17 20:31 05/31/17 07:57 Labs: Abnormal lab results 05/30/17 05/30/17 05/30/17 Range/Units 10:35 15:48 20:29 Sodium 133 L (137-145) mmol/L Chloride 92.0 L (98-107) mmol/L Carbon Dioxide 11 L D (22-30) mmol/L BUN 40 H (7-17) mg/dL Creatinine 1.4 H (0.7-1.2) mg/dL Glucose 495 H (65-100) mg/dL POC Glucose 143 H 203 H (70-105) Calcium 8.0 L (8.4-10.2) mg/dL 05/30/17 05/31/17 Range/Units 22:03 07:57 Sodium 135 L (137-145) mmol/L Chloride (98-107) mmol/L Carbon Dioxide (22-30) mmol/L BUN 36 H (7-17) mg/dL Creatinine (0.7-1.2) mg/dL Glucose 63 L (65-100) mg/dL POC Glucose 381 H (70-105) Calcium 8.1 L (8.4-10.2) mg/dL
--- NOTE | 2017-05-31 18:54 | XRay Report ---
FINAL REPORT PROCEDURE: XR CHEST 1V AP TECHNIQUE: Chest radiograph anteroposterior view. CPT 10079 HISTORY: sob COMPARISON: No prior studies are available for comparison. FINDINGS: Heart: Mildly enlarged Mediastinum/Vessels: Moderate central congestion.. Lungs/Pleural space: Shallow inspiration with elevation right hemidiaphragm. COPD Bony thorax: No acute osseous abnormality. Life support devices: None. IMPRESSION: No acute cardiopulmonary abnormality. Shallow inspiration with elevation right hemidiaphragm
--- NOTE | 2017-05-31 19:16 | XRay Report ---
FINAL REPORT EXAM: XR SHOULDER 2+V LT HISTORY: pain TECHNIQUE: Three views left shoulder PRIORS: None. FINDINGS: No fractures are identified. No dislocation seen. The acromioclavicular joint is intact. Adjacent bony and soft tissue structures are unremarkable. There is some degenerative narrowing at the glenohumeral joint space IMPRESSION: Degenerative narrowing at the glenohumeral joint space No acute fracture or dislocation identified
--- NOTE | 2017-05-31 19:53 | Cat Scan Report ---
FINAL REPORT PROCEDURE: CT left upper extremity without contrast. TECHNIQUE: Computerized axial tomography was performed of the LEFT shoulder, upper arm, forearm, wrist and hand. HISTORY: Left arm pain. COMPARISON: No prior studies are available for comparison. FINDINGS: The bones appear intact without fracture or dislocation. The joint spaces appear satisfactory. There are no definite joint effusions. The soft tissues are unremarkable. IMPRESSION: No significant abnormality.
[2017-05-31] MEDS: ROCEPHIN 1 GM in NACL 0.9% 20 ML IV SCH (21:47)
[2017-05-31] MEDS: PROTONIX PO SCH (21:47)
--- NOTE | 2017-05-31 22:30 | Progress Note ---
Assessment and Plan Patient is in deep sleep On room air. O2 saturation 86%. Placed her on 3 litres O2. O2 saturation went up to 97%.No acute respiratory distress.No complaint of chest pain or shortness of breath. - Patient Problems (1) DKA (diabetic ketoacidoses) Current Visit: Yes Status: Acute Qualifiers: Diabetes mellitus type: type 1 Diabetes mellitus complication detail: without coma Plan to address problem: Improved. (2) UTI (urinary tract infection) Current Visit: Yes Status: Acute Qualifiers: Urinary tract infection type: acute cystitis Hematuria presence: with hematuria Qualified Code(s): N30.01 - Acute cystitis with hematuria Plan to address problem: Patient is on ceftrioxone. (3) ARF (acute renal failure) Current Visit: Yes Status: Acute Qualifiers: Acute renal failure type: unspecified Qualified Code(s): N17.9 - Acute kidney failure, unspecified Plan to address problem: Management as per primary care and nephrology. (4) Hypoxemia Current Visit: Yes Status: Acute Plan to address problem: O2 supplementation 3 litres. ABGs on room air. Subjective Date of service: 05/31/17 Interval history: Patient is in deep sleep On room air. O2 saturation 86%. Placed her on 3 litres O2. O2 saturation went up to 97%.No acute respiratory distress. Objective Vital Signs - 12hr 05/31/17 05/31/17 05/31/17 16:06 19:45 19:56 Temperature 98.5 F 98.4 F Pulse Rate [ 105 H Right Radial] Respiratory 20 20 Rate Blood Pressure 105/51 131/60 O2 Sat by Pulse 86 Oximetry Constitutional: no acute distress, alert Eyes: non-icteric ENT: oropharynx dry Neck: supple, no lymphadenopathy Ascultation: Bilateral: clear Cardiovascular: regular rate and rhythm Gastrointestinal: normoactive bowel sounds, soft, non-tender Integumentary: normal Extremities: edema, other (Left upper extremity swelling.) Neurologic: normal mental status, non-focal exam, pupils equal and round, CN II- XII normal Psychiatric: mood appropriate CBC and BMP: 05/29/17 20:31 05/31/17 07:57 ABG, PT/INR, D-dimer: ABG POC ABG pH 7.008 (7.35-7.45) L 05/29/17 22:08 POC ABG pCO2 19.8 (35-45) L 05/29/17 22:08 POC ABG pO2 175 (80-105) H 05/29/17 22:08 POC ABG HCO3 5.0 05/29/17 22:08 POC ABG Total CO2 6 05/29/17 22:08 POC ABG O2 Sat 99 05/29/17 22:08 Abnormal lab findings: Abnormal Labs 05/29/17 05/29/17 05/29/17 20:22 20:22 20:31 MCV 111 H MCHC 26 L RDW 17.9 H Lymph % (Auto) 6.4 L [place] % (Auto) 7.6 H Lymph # 0.5 L Seg Neutrophils % 85.7 H POC ABG pH POC ABG pCO2 POC ABG pO2 VBG pH Sodium 121 L Potassium 6.0 H Chloride 77.2 L Carbon Dioxide 2 L* BUN 40 H Creatinine 1.8 H Glucose 1119 H* POC Glucose Lactic Acid 13.00 H* Calcium Phosphorus Magnesium AST 107 H Alkaline Phosphatase 139 H Albumin 3.4 L Urine WBC (Auto) 05/29/17 05/29/17 05/29/17 20:40 21:37 21:37 MCV MCHC RDW Lymph % (Auto) [place] % (Auto) Lymph # Seg Neutrophils % POC ABG pH POC ABG pCO2 POC ABG pO2 VBG pH 7.035 L* Sodium 123 L Potassium 5.5 H Chloride 77.3 L Carbon Dioxide 4 L* BUN 43 H Creatinine 1.7 H Glucose 1025 H* POC Glucose Lactic Acid Calcium Phosphorus 7.20 H Magnesium 2.50 H AST Alkaline Phosphatase Albumin Urine WBC (Auto) 05/29/17 05/29/17 05/29/17 22:08 23:07 23:56 MCV MCHC RDW Lymph % (Auto) [place] % (Auto) Lymph # Seg Neutrophils % POC ABG pH 7.008 L POC ABG pCO2 19.8 L POC ABG pO2 175 H VBG pH Sodium 130 L D Potassium Chloride 85.9 L Carbon Dioxide 7 L* BUN 39 H Creatinine 1.7 H Glucose 786 H* POC Glucose > 500 H Lactic Acid Calcium Phosphorus Magnesium AST Alkaline Phosphatase Albumin Urine WBC (Auto) 05/29/17 05/30/17 05/30/17 Unknown 01:16 01:30 MCV MCHC RDW Lymph % (Auto) [place] % (Auto) Lymph # Seg Neutrophils % POC ABG pH POC ABG pCO2 POC ABG pO2 VBG pH Sodium 133 L Potassium Chloride 89.9 L Carbon Dioxide 11 L BUN 38 H Creatinine 1.5 H Glucose 528 H* POC Glucose 498 H Lactic Acid Calcium Phosphorus Magnesium AST Alkaline Phosphatase Albumin Urine WBC (Auto) > 182.0 H 05/30/17 05/30/17 05/30/17 02:01 03:14 03:50 MCV MCHC RDW Lymph % (Auto) [place] % (Auto) Lymph # Seg Neutrophils % POC ABG pH POC ABG pCO2 POC ABG pO2 VBG pH Sodium 134 L Potassium Chloride 94.2 L Carbon Dioxide 14 L BUN 37 H Creatinine 1.4 H Glucose 286 H POC Glucose 426 H 462 H Lactic Acid Calcium Phosphorus Magnesium AST Alkaline Phosphatase Albumin Urine WBC (Auto) 05/30/17 05/30/17 05/30/17 04:01 05:33 05:38 MCV MCHC RDW Lymph % (Auto) [place] % (Auto) Lymph # Seg Neutrophils % POC ABG pH POC ABG pCO2 POC ABG pO2 VBG pH Sodium 135 L Potassium Chloride 95.5 L Carbon Dioxide 21 L D BUN 36 H Creatinine 1.3 H Glucose 151 H POC Glucose 289 H 290 H Lactic Acid Calcium Phosphorus Magnesium AST Alkaline Phosphatase Albumin Urine WBC (Auto) 05/30/17 05/30/17 05/30/17 06:38 07:18 08:12 MCV MCHC RDW Lymph % (Auto) [place] % (Auto) Lymph # Seg Neutrophils % POC ABG pH POC ABG pCO2 POC ABG pO2 VBG pH Sodium Potassium Chloride Carbon Dioxide BUN Creatinine Glucose POC Glucose 174 H 126 H 132 H Lactic Acid Calcium Phosphorus Magnesium AST Alkaline Phosphatase Albumin Urine WBC (Auto) 05/30/17 05/30/17 05/30/17 10:35 12:16 13:09 MCV MCHC RDW Lymph % (Auto) [place] % (Auto) Lymph # Seg Neutrophils % POC ABG pH POC ABG pCO2 POC ABG pO2 VBG pH Sodium Potassium Chloride 96.5 L Carbon Dioxide BUN 36 H Creatinine Glucose 144 H POC Glucose 143 H 137 H Lactic Acid Calcium 8.3 L Phosphorus Magnesium AST Alkaline Phosphatase Albumin Urine WBC (Auto) 05/30/17 05/30/17 05/30/17 15:48 20:29 22:03 MCV MCHC RDW Lymph % (Auto) [place] % (Auto) Lymph # Seg Neutrophils % POC ABG pH POC ABG pCO2 POC ABG pO2 VBG pH Sodium 133 L Potassium Chloride 92.0 L Carbon Dioxide 11 L D BUN 40 H Creatinine 1.4 H Glucose 495 H POC Glucose 203 H 381 H Lactic Acid Calcium 8.0 L Phosphorus Magnesium AST Alkaline Phosphatase Albumin Urine WBC (Auto) 05/31/17 05/31/17 05/31/17 07:57 09:19 12:28 MCV MCHC RDW Lymph % (Auto) [place] % (Auto) Lymph # Seg Neutrophils % POC ABG pH POC ABG pCO2 POC ABG pO2 VBG pH Sodium 135 L Potassium Chloride Carbon Dioxide BUN 36 H Creatinine Glucose 63 L POC Glucose 167 H 181 H Lactic Acid Calcium 8.1 L Phosphorus Magnesium AST Alkaline Phosphatase Albumin Urine WBC (Auto) 05/31/17 05/31/17 16:10 21:09 MCV MCHC RDW Lymph % (Auto) [place] % (Auto) Lymph # Seg Neutrophils % POC ABG pH POC ABG pCO2 POC ABG pO2 VBG pH Sodium Potassium Chloride Carbon Dioxide BUN Creatinine Glucose POC Glucose 317 H 311 H Lactic Acid Calcium Phosphorus Magnesium AST Alkaline Phosphatase Albumin Urine WBC (Auto) Chest x-ray: report reviewed (No acute infiltrates, elevated right hemidiaphragham.), image reviewed
[2017-06-01 05:51] LABS: Basophils % (Auto) 0.2 % (0.0-1.8); Eosinophils % (Auto) 1.2 % (0.0-4.3); Mean Corpuscular HGB Conc 34 % (30-34); Mean Corpuscular Hemoglobin 30 pg (28-32); Mean Corpuscular Volume 88 fl (79-97); Platelet Count 237 K/mm3 (140-440); Red Cell Distribution Width 15.3 % (13.2-15.2); White Blood Count 6.1 K/mm3 (4.5-11.0)
[2017-06-01 06:05] LABS: Anion Gap 16 mmol/L; BUN/Creatinine Ratio 33; Blood Urea Nitrogen 26 mg/dL (7-17); Calcium 7.9 mg/dL (8.4-10.2); Carbon Dioxide 25 mmol/L (22-30); Chloride 98.7 mmol/L (98-107); Glucose 123 mg/dL (65-100); Potassium 4.6 mmol/L (3.6-5.0); Sodium 135 mmol/L (137-145)
[2017-06-01 06:45] LABS: Hematocrit 29.4 % (30.3-42.9)
[2017-06-01] MEDS: LIDODERM 5% TD SCH (09:08)
[2017-06-01] MEDS: VITAMIN B-12 PO SCH (09:09)
[2017-06-01] MEDS: THERAGRAN Tab PO SCH (09:09)
[2017-06-01] MEDS: KEPPRA PO SCH ×2 (09:09→21:57)
[2017-06-01] MEDS: VITAMIN D3 PO SCH (09:09)
[2017-06-01] MEDS: URECHOLINE PO SCH ×3 (09:09→20:55)
[2017-06-01] MEDS: LEVEMIR SUB-Q SCH (09:19)
--- NOTE | 2017-06-01 14:47 | Progress Note ---
<FELIPE CASPER - Last Filed: 06/01/17 15:43> Assessment and Plan Assessment and plan: 86-year-old [place] female with past medical history significant for diabetes mellitus, subdural hematoma, phlebitis admitted to ICU for the management of DKA. Patient has G-tube, but she is able to eat by mouth. She was just discharged about a week ago after treating for similar DKA episode. DKA - Patient was treated according to DKA protocol and resolved - Anion gap closed, co2 normalized - stopped insulin drip, - cont on SSI with long acting detemir - cont detemir 5 unit in the am DM with hyperglycemia - Continue sliding scale insulin coverage with detemir - Patient started on diabetic diet -Accu-Cheks before meals and at bedtime UTI - cont her on ceftriaxone Weakness debility - Consult for PT, case management , evaluation for rehab placement Metabolic Acidosis due to DKA - resolved with fluid and insulin Sub dural hematoma X2, she had removal of subdural hematoma x1 - cont frequent neuro exam - avoid heparin product LUCINDA - cont iv fluid, renal function improved Left arm pain and swelling -venous doppler negative for dvt/svt -No acute fracture or dislocation DVT prophylaxis - SCDs History Interval history: Pt seen and examined. Denies SOB, CP, NV. Labs and nurse notes reviewed Hospitalist Physical - Constitutional Vitals: Temp Pulse Resp BP Pulse Ox 99.1 F 103 H 22 150/61 99 06/01/17 00:27 06/01/17 00:25 06/01/17 00:27 06/01/17 00:27 05/31/17 23:47 General appearance: Present: no acute distress - EENT Eyes: Present: PERRL, EOM intact ENT: hearing intact, clear oral mucosa, poor dentition - Neck Neck: Present: supple, normal ROM - Respiratory Respiratory effort: normal Respiratory: bilateral: CTA - Cardiovascular Rhythm: regular Heart Sounds: Present: S1 & S2 - Extremities Extremities: no ischemia, No edema - Abdominal General gastrointestinal: soft, non-tender - Integumentary Integumentary: Present: clear, warm - Psychiatric Psychiatric: appropriate mood/affect, cooperative - Neurologic Neurologic: CNII-XII intact, moves all extremities - Allied Health Allied health notes reviewed: nursing Results - Labs CBC & Chem 7: 06/01/17 05:10 06/01/17 05:10 Labs: Laboratory Last Values WBC 6.1 K/mm3 (4.5-11.0) 06/01/17 05:10 RBC 3.00 M/mm3 (3.65-5.03) L 06/01/17 05:10 Hgb 9.0 gm/dl (10.1-14.3) L 06/01/17 05:10 Hct 29.4 % (30.3-42.9) L D 06/01/17 05:10 MCV 88 fl (79-97) 06/01/17 05:10 MCH 30 pg (28-32) 06/01/17 05:10 MCHC 34 % (30-34) 06/01/17 05:10 RDW 15.3 % (13.2-15.2) H 06/01/17 05:10 Plt Count 237 K/mm3 (140-440) 06/01/17 05:10 Lymph % (Auto) 7.9 % (13.4-35.0) L 06/01/17 05:10 [place] % (Auto) 8.6 % (0.0-7.3) H 06/01/17 05:10 Eos % (Auto) 1.2 % (0.0-4.3) 06/01/17 05:10 Baso % (Auto) 0.2 % (0.0-1.8) 06/01/17 05:10 Lymph # 0.5 K/mm3 (1.2-5.4) L 06/01/17 05:10 [place] # 0.5 K/mm3 (0.0-0.8) 06/01/17 05:10 Eos # 0.1 K/mm3 (0.0-0.4) 06/01/17 05:10 Baso # 0.0 K/mm3 (0.0-0.1) 06/01/17 05:10 Seg Neutrophils % 82.1 % (40.0-70.0) H 06/01/17 05:10 Seg Neutrophils # 5.0 K/mm3 (1.8-7.7) 06/01/17 05:10 POC ABG pH 7.008 (7.35-7.45) L 05/29/17 22:08 POC ABG pCO2 19.8 (35-45) L 05/29/17 22:08 POC ABG pO2 175 (80-105) H 05/29/17 22:08 POC ABG HCO3 5.0 05/29/17 22:08 POC ABG Total CO2 6 05/29/17 22:08 POC ABG O2 Sat 99 05/29/17 22:08 POC ABG Base Excess -26 05/29/17 22:08 VBG pH 7.035 (7.320-7.420) L* 05/29/17 20:40 FiO2 28 % 05/29/17 22:08 Sodium 135 mmol/L (137-145) L 06/01/17 05:10 Potassium 4.6 mmol/L (3.6-5.0) 06/01/17 05:10 Chloride 98.7 mmol/L (98-107) 06/01/17 05:10 Carbon Dioxide 25 mmol/L (22-30) 06/01/17 05:10 Anion Gap 16 mmol/L 06/01/17 05:10 BUN 26 mg/dL (7-17) H 06/01/17 05:10 Creatinine 0.8 mg/dL (0.7-1.2) 06/01/17 05:10 Estimated GFR > 60 ml/min 06/01/17 05:10 BUN/Creatinine Ratio 33 % 06/01/17 05:10 Glucose 123 mg/dL (65-100) H 06/01/17 05:10 POC Glucose 268 (70-105) H 06/01/17 08:41 Osmolality 360 Mosm/kg 05/29/17 20:22 Lactic Acid 13.00 mmol/L (0.7-2.0) H* 05/29/17 20:22 Calcium 7.9 mg/dL (8.4-10.2) L 06/01/17 05:10 Phosphorus 7.20 mg/dL (2.5-4.5) H 05/29/17 21:37 Magnesium 2.50 mg/dL (1.7-2.3) H 05/29/17 21:37 Total Bilirubin 0.20 mg/dL (0.1-1.2) 05/29/17 20:22 AST 107 units/L (5-40) H 05/29/17 20:22 ALT 33 units/L (7-56) 05/29/17 20:22 Alkaline Phosphatase 139 units/L (35-129) H 05/29/17 20:22 Troponin T 0.010 ng/mL (0.00-0.029) 05/29/17 20:22 Total Protein 6.8 g/dL (6.3-8.2) 05/29/17 20:22 Albumin 3.4 g/dL (3.9-5) L 05/29/17 20:22 Albumin/Globulin Ratio 1.0 % 05/29/17 20:22 Urine Color Yellow (Yellow) 05/29/17 Unknown Urine Turbidity Clear (Clear) 05/29/17 Unknown Urine pH 5.0 (5.0-7.0) 05/29/17 Unknown Ur Specific Universal 1.016 (1.003-1.030) 05/29/17 Unknown Urine Protein 30 mg/dl mg/dL (Negative) 05/29/17 Unknown Urine Glucose (UA) >=500 mg/dL (Negative) 05/29/17 Unknown Urine Ketones Tr mg/dL (Negative) 05/29/17 Unknown Urine Blood Mod (Negative) 05/29/17 Unknown Urine Nitrite Neg (Negative) 05/29/17 Unknown Urine Bilirubin Neg (Negative) 05/29/17 Unknown Urine Urobilinogen < 2.0 mg/dL (<2.0) 05/29/17 Unknown Ur Leukocyte Esterase Lg (Negative) 05/29/17 Unknown Urine WBC (Auto) > 182.0 /HPF (0.0-6.0) H 05/29/17 Unknown Urine RBC (Auto) 90.0 /HPF (0.0-6.0) 05/29/17 Unknown U Epithel Cells (Auto) 1.0 /HPF (0-13.0) 05/29/17 Unknown Urine Bacteria (Auto) 1+ /HPF (Negative) 05/29/17 Unknown Urine WBC Clumps 3+ /HPF 05/29/17 Unknown Urine Mucus Few /HPF 05/29/17 Unknown Urine Yeast (Budding) 3+ /HPF 05/29/17 Unknown <ZULY HOLCOMB - Last Filed: 06/01/17 17:29> Assessment and Plan Assessment and plan: Discussed with pt's I saw and evaluated the patient. I agree with the findings and the plan of care as documented in the Nurse Practitioner's~note, with the following corrections and additions. 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 Discussed with pt's son Kamlesh who informed me nicole t pt had B12 deficiency. Requested 1 ml of B12 shot. warm compress left arm for swelling from infiltration, Nursed to assist in finding pt's dentures Hospitalist Physical - Constitutional Vitals: Temp Pulse Resp BP Pulse Ox 99.1 F 103 H 22 150/61 99 06/01/17 00:27 06/01/17 00:25 06/01/17 00:27 06/01/17 00:27 06/01/17 16:13 Results - Labs CBC & Chem 7: 06/01/17 05:10 06/01/17 05:10 Labs: Laboratory Last Values WBC 6.1 K/mm3 (4.5-11.0) 06/01/17 05:10 RBC 3.00 M/mm3 (3.65-5.03) L 06/01/17 05:10 Hgb 9.0 gm/dl (10.1-14.3) L 06/01/17 05:10 Hct 29.4 % (30.3-42.9) L D 06/01/17 05:10 MCV 88 fl (79-97) 06/01/17 05:10 MCH 30 pg (28-32) 06/01/17 05:10 MCHC 34 % (30-34) 06/01/17 05:10 RDW 15.3 % (13.2-15.2) H 06/01/17 05:10 Plt Count 237 K/mm3 (140-440) 06/01/17 05:10 Lymph % (Auto) 7.9 % (13.4-35.0) L 06/01/17 05:10 [place] % (Auto) 8.6 % (0.0-7.3) H 06/01/17 05:10 Eos % (Auto) 1.2 % (0.0-4.3) 06/01/17 05:10 Baso % (Auto) 0.2 % (0.0-1.8) 06/01/17 05:10 Lymph # 0.5 K/mm3 (1.2-5.4) L 06/01/17 05:10 [place] # 0.5 K/mm3 (0.0-0.8) 06/01/17 05:10 Eos # 0.1 K/mm3 (0.0-0.4) 06/01/17 05:10 Baso # 0.0 K/mm3 (0.0-0.1) 06/01/17 05:10 Seg Neutrophils % 82.1 % (40.0-70.0) H 06/01/17 05:10 Seg Neutrophils # 5.0 K/mm3 (1.8-7.7) 06/01/17 05:10 POC ABG pH 7.421 (7.35-7.45) 06/01/17 16:14 POC ABG pCO2 38.5 (35-45) 06/01/17 16:14 POC ABG pO2 75 (80-105) L 06/01/17 16:14 POC ABG HCO3 25.0 06/01/17 16:14 POC ABG Total CO2 26 06/01/17 16:14 POC ABG O2 Sat 95 06/01/17 16:14 POC ABG Base Excess 1 06/01/17 16:14 VBG pH 7.035 (7.320-7.420) L* 05/29/17 20:40 FiO2 21 % 06/01/17 16:14 Sodium 135 mmol/L (137-145) L 06/01/17 05:10 Potassium 4.6 mmol/L (3.6-5.0) 06/01/17 05:10 Chloride 98.7 mmol/L (98-107) 06/01/17 05:10 Carbon Dioxide 25 mmol/L (22-30) 06/01/17 05:10 Anion Gap 16 mmol/L 06/01/17 05:10 BUN 26 mg/dL (7-17) H 06/01/17 05:10 Creatinine 0.8 mg/dL (0.7-1.2) 06/01/17 05:10 Estimated GFR > 60 ml/min 06/01/17 05:10 BUN/Creatinine Ratio 33 % 06/01/17 05:10 Glucose 123 mg/dL (65-100) H 06/01/17 05:10 POC Glucose 268 (70-105) H 06/01/17 08:41 Osmolality 360 Mosm/kg 05/29/17 20:22 Lactic Acid 13.00 mmol/L (0.7-2.0) H* 05/29/17 20:22 Calcium 7.9 mg/dL (8.4-10.2) L 06/01/17 05:10 Phosphorus 7.20 mg/dL (2.5-4.5) H 05/29/17 21:37 Magnesium 2.50 mg/dL (1.7-2.3) H 05/29/17 21:37 Total Bilirubin 0.20 mg/dL (0.1-1.2) 05/29/17 20:22 AST 107 units/L (5-40) H 05/29/17 20:22 ALT 33 units/L (7-56) 05/29/17 20:22 Alkaline Phosphatase 139 units/L (35-129) H 05/29/17 20:22 Troponin T 0.010 ng/mL (0.00-0.029) 05/29/17 20:22 Total Protein 6.8 g/dL (6.3-8.2) 05/29/17 20:22 Albumin 3.4 g/dL (3.9-5) L 05/29/17 20:22 Albumin/Globulin Ratio 1.0 % 05/29/17 20:22 Urine Color Yellow (Yellow) 05/29/17 Unknown Urine Turbidity Clear (Clear) 05/29/17 Unknown Urine pH 5.0 (5.0-7.0) 05/29/17 Unknown Ur Specific Universal 1.016 (1.003-1.030) 05/29/17 Unknown Urine Protein 30 mg/dl mg/dL (Negative) 05/29/17 Unknown Urine Glucose (UA) >=500 mg/dL (Negative) 05/29/17 Unknown Urine Ketones Tr mg/dL (Negative) 05/29/17 Unknown Urine Blood Mod (Negative) 05/29/17 Unknown Urine Nitrite Neg (Negative) 05/29/17 Unknown Urine Bilirubin Neg (Negative) 05/29/17 Unknown Urine Urobilinogen < 2.0 mg/dL (<2.0) 05/29/17 Unknown Ur Leukocyte Esterase Lg (Negative) 05/29/17 Unknown Urine WBC (Auto) > 182.0 /HPF (0.0-6.0) H 05/29/17 Unknown Urine RBC (Auto) 90.0 /HPF (0.0-6.0) 05/29/17 Unknown U Epithel Cells (Auto) 1.0 /HPF (0-13.0) 05/29/17 Unknown Urine Bacteria (Auto) 1+ /HPF (Negative) 05/29/17 Unknown Urine WBC Clumps 3+ /HPF 05/29/17 Unknown Urine Mucus Few /HPF 05/29/17 Unknown Urine Yeast (Budding) 3+ /HPF 05/29/17 Unknown
--- NOTE | 2017-06-01 16:16 | Consultation ---
History of Present Illness - HPI Consult date: 06/01/17 Consult reason: joint pain Medications and Allergies Allergies Allergy/AdvReac Type Severity Reaction Status Date / Time heparin AdvReac Bleeding Verified 05/20/17 18:51 Home Medications Medication Instructions Recorded Confirmed Last Taken Type AtorvaSTATin [Lipitor] 10 mg PO QHS 05/20/17 06/01/17 1 Day Ago History ~05/31/17 Bethanechol Chloride 25 mg PO TID 05/20/17 06/01/17 1 Day Ago History ~05/31/17 Cholecalciferol (Vitamin D3) 1,000 unit PO DAILY 05/20/17 06/01/17 1 Day Ago History [Vitamin D3] ~05/31/17 Cyanocobalamin [Vitamin B-12] 2,000 mcg PO DAILY 05/20/17 06/01/17 1 Day Ago History ~05/31/17 Insulin Lispro [Humalog] 0 unit SQ DAILY 05/20/17 06/01/17 1 Day Ago History ~05/31/17 Lisinopril [Zestril TAB] 10 mg PO QDAY 05/20/17 06/01/17 1 Day Ago History ~05/31/17 Multivitamin [Multiple Vitamins] 1 each PO DAILY 05/20/17 06/01/17 1 Day Ago History ~05/31/17 Omeprazole 20 mg PO QHS 05/20/17 06/01/17 1 Day Ago History ~05/31/17 amLODIPine [Norvasc] 5 mg PO DAILY 05/20/17 06/01/17 1 Day Ago History ~05/31/17 levETIRAcetam [Keppra ORAL LIQ] 500 mg PO BID 05/20/17 06/01/17 1 Day Ago History ~05/31/17 Insulin Degludec [Tresiba 5 unit SQ DAILY 06/01/17 06/01/17 1 Day Ago History Flextouch U-100] ~05/31/17 Active Meds: Active Medications Acetaminophen (Tylenol) 650 mg PO Q4H PRN PRN Reason: Pain MILD(1-3)/Fever >100.5/BENNETT Atorvastatin Calcium (Lipitor) 10 mg PO QHS [facility] Last Admin: 05/31/17 21:47 Dose: 10 mg Bethanechol Chloride (Urecholine) 25 mg PO TID [facility] Last Admin: 06/01/17 14:48 Dose: 25 mg Bisacodyl (Dulcolax) 10 mg [place] QDAY PRN PRN Reason: Constipation unrelieved by MOM Cholecalciferol (Vitamin D3) 1,000 unit PO DAILY [facility] Last Admin: 06/01/17 09:09 Dose: 1,000 unit Cyanocobalamin (Vitamin B-12) 2,000 mcg PO DAILY [facility] Last Admin: 06/01/17 09:09 Dose: 2,000 mcg Dextrose (D50w (25gm) Syringe) 0 ml IV PRN PRN PRN Reason: Hypoglycemia Ceftriaxone Sodium 1 gm/ (Sodium Chloride) 20 mls @ 2 mls/min IV Q24H [facility] Last Admin: 05/31/17 21:47 Dose: 2 mls/min Insulin Detemir (Levemir) 5 units SUB-Q QAMDIAB [facility] Last Admin: 06/01/17 09:19 Dose: 5 units Insulin Human Regular (Novolin R) 0 units SUB-Q ACHS DENNIS PRN Reason: Protocol Last Admin: 06/01/17 14:52 Dose: 2 units Levetiracetam (Keppra) 500 mg PO BID [facility] Last Admin: 06/01/17 09:09 Dose: 500 mg Lidocaine (Lidoderm 5%) 1 each TD QDAY [facility] Last Admin: 06/01/17 09:08 Dose: 1 each Multivitamins (Theragran Tab) 1 each PO DAILY [facility] Last Admin: 06/01/17 09:09 Dose: 1 each Ondansetron HCl (Zofran) 4 mg IV Q8H PRN PRN Reason: N/V unrelieved by Reglan Oxycodone HCl (Roxicodone) 5 mg PO Q6HR PRN PRN Reason: Pain Last Admin: 05/31/17 13:01 Dose: 5 mg Pantoprazole Sodium (Protonix) 20 mg PO QHS [facility] Last Admin: 05/31/17 21:47 Dose: 20 mg Assessment and Plan - Patient Problems (1) Left shoulder pain Current Visit: Yes Status: Acute Plan to address problem: Tylenol for pain Rehab= ROM , rot cuff exercises (2) Arthritis of both knees Current Visit: Yes Status: Chronic Plan to address problem: Progressive ambulation, WBAT. walker ROM, Quad excersices, tylenol for pain
[2017-06-01 16:24] LABS: ISTAT Base Excess 1; ISTAT DEVICE 0; ISTAT PCO2 38.5 (35-45); ISTAT PH 7.421 (7.35-7.45); ISTAT PO2 75 (80-105); ISTAT SO2 95; ISTAT TCO2 26
--- NOTE | 2017-06-01 18:21 | Progress Note ---
Assessment and Plan Patient alert,awake, weak. No acute respiratory distress. O2 saturation 100% on 2 litres O2..ABGs On room air PH 7.42, PCO2 39, PO2 75, HCO3 25, and O2 saturation 95% on room air. Venous doppler studies of left upper extremity results pending. - Patient Problems (1) DKA (diabetic ketoacidoses) Current Visit: Yes Status: Acute Qualifiers: Diabetes mellitus type: type 1 Diabetes mellitus complication detail: without coma Qualified Code(s): E10.10 - Type 1 diabetes mellitus with ketoacidosis without coma Plan to address problem: Improved. Management as per primary care. (2) UTI (urinary tract infection) Current Visit: Yes Status: Acute Qualifiers: Urinary tract infection type: acute cystitis Hematuria presence: with hematuria Qualified Code(s): N30.01 - Acute cystitis with hematuria Plan to address problem: Patient is on ceftrioxone. (3) ARF (acute renal failure) Current Visit: Yes Status: Acute Qualifiers: Acute renal failure type: unspecified Qualified Code(s): N17.9 - Acute kidney failure, unspecified Plan to address problem: Management as per primary care and nephrology. (4) Hypoxemia Current Visit: Yes Status: Acute Plan to address problem: Improved. ABGs on room air reported PH 7.42, PCO2 39, PO2 75, HCO3 25, O2 saturation 95% on room air Patient is not candidate for home O2 at this time. Subjective Date of service: 06/01/17 Interval history: Patient alert,awake, weak. No acute respiratory distress. O2 saturation 100% on 2 litres O2..ABGs On room air PH 7.42, PCO2 39, PO2 75, HCO3 25, and O2 saturation 95% on room air. Venous doppler studies of left upper extremity results pending. Objective Vital Signs - 12hr 06/01/17 06/01/17 15:49 16:13 O2 Sat by Pulse 100 99 Oximetry Constitutional: no acute distress, alert Eyes: non-icteric ENT: oropharynx dry Neck: supple, no lymphadenopathy Ascultation: Bilateral: clear Cardiovascular: regular rate and rhythm Gastrointestinal: normoactive bowel sounds, soft, non-tender Integumentary: normal Extremities: edema, other (Left upper extremity swelling.) Neurologic: normal mental status, non-focal exam, pupils equal and round, CN II- XII normal Psychiatric: mood appropriate CBC and BMP: 06/01/17 05:10 06/01/17 05:10 ABG, PT/INR, D-dimer: ABG POC ABG pH 7.421 (7.35-7.45) 06/01/17 16:14 POC ABG pCO2 38.5 (35-45) 06/01/17 16:14 POC ABG pO2 75 (80-105) L 06/01/17 16:14 POC ABG HCO3 25.0 06/01/17 16:14 POC ABG Total CO2 26 06/01/17 16:14 POC ABG O2 Sat 95 06/01/17 16:14 Abnormal lab findings: Abnormal Labs 05/29/17 05/29/17 05/29/17 20:22 20:22 20:31 RBC Hgb Hct MCV 111 H MCHC 26 L RDW 17.9 H Lymph % (Auto) 6.4 L Hart % (Auto) 7.6 H Lymph # 0.5 L Seg Neutrophils % 85.7 H POC ABG pH POC ABG pCO2 POC ABG pO2 VBG pH Sodium 121 L Potassium 6.0 H Chloride 77.2 L Carbon Dioxide 2 L* BUN 40 H Creatinine 1.8 H Glucose 1119 H* POC Glucose Lactic Acid 13.00 H* Calcium Phosphorus Magnesium AST 107 H Alkaline Phosphatase 139 H Albumin 3.4 L Urine WBC (Auto) 05/29/17 05/29/17 05/29/17 20:40 21:37 21:37 RBC Hgb Hct MCV MCHC RDW Lymph % (Auto) Hart % (Auto) Lymph # Seg Neutrophils % POC ABG pH POC ABG pCO2 POC ABG pO2 VBG pH 7.035 L* Sodium 123 L Potassium 5.5 H Chloride 77.3 L Carbon Dioxide 4 L* BUN 43 H Creatinine 1.7 H Glucose 1025 H* POC Glucose Lactic Acid Calcium Phosphorus 7.20 H Magnesium 2.50 H AST Alkaline Phosphatase Albumin Urine WBC (Auto) 05/29/17 05/29/17 05/29/17 22:08 23:07 23:56 RBC Hgb Hct MCV MCHC RDW Lymph % (Auto) Hart % (Auto) Lymph # Seg Neutrophils % POC ABG pH 7.008 L POC ABG pCO2 19.8 L POC ABG pO2 175 H VBG pH Sodium 130 L D Potassium Chloride 85.9 L Carbon Dioxide 7 L* BUN 39 H Creatinine 1.7 H Glucose 786 H* POC Glucose > 500 H Lactic Acid Calcium Phosphorus Magnesium AST Alkaline Phosphatase Albumin Urine WBC (Auto) 05/29/17 05/30/17 05/30/17 Unknown 01:16 01:30 RBC Hgb Hct MCV MCHC RDW Lymph % (Auto) Hart % (Auto) Lymph # Seg Neutrophils % POC ABG pH POC ABG pCO2 POC ABG pO2 VBG pH Sodium 133 L Potassium Chloride 89.9 L Carbon Dioxide 11 L BUN 38 H Creatinine 1.5 H Glucose 528 H* POC Glucose 498 H Lactic Acid Calcium Phosphorus Magnesium AST Alkaline Phosphatase Albumin Urine WBC (Auto) > 182.0 H 05/30/17 05/30/17 05/30/17 02:01 03:14 03:50 RBC Hgb Hct MCV MCHC RDW Lymph % (Auto) Hart % (Auto) Lymph # Seg Neutrophils % POC ABG pH POC ABG pCO2 POC ABG pO2 VBG pH Sodium 134 L Potassium Chloride 94.2 L Carbon Dioxide 14 L BUN 37 H Creatinine 1.4 H Glucose 286 H POC Glucose 426 H 462 H Lactic Acid Calcium Phosphorus Magnesium AST Alkaline Phosphatase Albumin Urine WBC (Auto) 05/30/17 05/30/17 05/30/17 04:01 05:33 05:38 RBC Hgb Hct MCV MCHC RDW Lymph % (Auto) Hart % (Auto) Lymph # Seg Neutrophils % POC ABG pH POC ABG pCO2 POC ABG pO2 VBG pH Sodium 135 L Potassium Chloride 95.5 L Carbon Dioxide 21 L D BUN 36 H Creatinine 1.3 H Glucose 151 H POC Glucose 289 H 290 H Lactic Acid Calcium Phosphorus Magnesium AST Alkaline Phosphatase Albumin Urine WBC (Auto) 05/30/17 05/30/17 05/30/17 06:38 07:18 08:12 RBC Hgb Hct MCV MCHC RDW Lymph % (Auto) Hart % (Auto) Lymph # Seg Neutrophils % POC ABG pH POC ABG pCO2 POC ABG pO2 VBG pH Sodium Potassium Chloride Carbon Dioxide BUN Creatinine Glucose POC Glucose 174 H 126 H 132 H Lactic Acid Calcium Phosphorus Magnesium AST Alkaline Phosphatase Albumin Urine WBC (Auto) 05/30/17 05/30/17 05/30/17 10:35 12:16 13:09 RBC Hgb Hct MCV MCHC RDW Lymph % (Auto) Hart % (Auto) Lymph # Seg Neutrophils % POC ABG pH POC ABG pCO2 POC ABG pO2 VBG pH Sodium Potassium Chloride 96.5 L Carbon Dioxide BUN 36 H Creatinine Glucose 144 H POC Glucose 143 H 137 H Lactic Acid Calcium 8.3 L Phosphorus Magnesium AST Alkaline Phosphatase Albumin Urine WBC (Auto) 05/30/17 05/30/17 05/30/17 15:48 20:29 22:03 RBC Hgb Hct MCV MCHC RDW Lymph % (Auto) Hart % (Auto) Lymph # Seg Neutrophils % POC ABG pH POC ABG pCO2 POC ABG pO2 VBG pH Sodium 133 L Potassium Chloride 92.0 L Carbon Dioxide 11 L D BUN 40 H Creatinine 1.4 H Glucose 495 H POC Glucose 203 H 381 H Lactic Acid Calcium 8.0 L Phosphorus Magnesium AST Alkaline Phosphatase Albumin Urine WBC (Auto) 05/31/17 05/31/17 05/31/17 07:57 09:19 12:28 RBC Hgb Hct MCV MCHC RDW Lymph % (Auto) Hart % (Auto) Lymph # Seg Neutrophils % POC ABG pH POC ABG pCO2 POC ABG pO2 VBG pH Sodium 135 L Potassium Chloride Carbon Dioxide BUN 36 H Creatinine Glucose 63 L POC Glucose 167 H 181 H Lactic Acid Calcium 8.1 L Phosphorus Magnesium AST Alkaline Phosphatase Albumin Urine WBC (Auto) 05/31/17 05/31/17 06/01/17 16:10 21:09 05:10 RBC 3.00 L Hgb 9.0 L Hct 29.4 L D MCV MCHC RDW 15.3 H Lymph % (Auto) 7.9 L Hart % (Auto) 8.6 H Lymph # 0.5 L Seg Neutrophils % 82.1 H POC ABG pH POC ABG pCO2 POC ABG pO2 VBG pH Sodium Potassium Chloride Carbon Dioxide BUN Creatinine Glucose POC Glucose 317 H 311 H Lactic Acid Calcium Phosphorus Magnesium AST Alkaline Phosphatase Albumin Urine WBC (Auto) 06/01/17 06/01/17 06/01/17 05:10 08:41 16:14 RBC Hgb Hct MCV MCHC RDW Lymph % (Auto) Hart % (Auto) Lymph # Seg Neutrophils % POC ABG pH POC ABG pCO2 POC ABG pO2 75 L VBG pH Sodium 135 L Potassium Chloride Carbon Dioxide BUN 26 H Creatinine Glucose 123 H POC Glucose 268 H Lactic Acid Calcium 7.9 L Phosphorus Magnesium AST Alkaline Phosphatase Albumin Urine WBC (Auto) 06/01/17 16:31 RBC Hgb Hct MCV MCHC RDW Lymph % (Auto) Hart % (Auto) Lymph # Seg Neutrophils % POC ABG pH POC ABG pCO2 POC ABG pO2 VBG pH Sodium Potassium Chloride Carbon Dioxide BUN Creatinine Glucose POC Glucose 117 H Lactic Acid Calcium Phosphorus Magnesium AST Alkaline Phosphatase Albumin Urine WBC (Auto)
[2017-06-01] MEDS: PROTONIX PO SCH (21:56)
[2017-06-01] MEDS: ROCEPHIN 1 GM in NACL 0.9% 20 ML IV SCH (21:57)
[2017-06-02 04:49] VITALS: BP 150/60
[2017-06-02] MEDS: LEVEMIR SUB-Q SCH (09:06)
[2017-06-02] MEDS: URECHOLINE PO SCH ×2 (09:08→15:16)
[2017-06-02] MEDS: VITAMIN B-12 PO SCH (09:09)
[2017-06-02] MEDS: VITAMIN D3 PO SCH (09:09)
[2017-06-02] MEDS: THERAGRAN Tab PO SCH (09:10)
[2017-06-02] MEDS: KEPPRA PO SCH (09:10)
[2017-06-02] MEDS: LIDODERM 5% TD SCH (09:10)
--- NOTE | 2017-06-02 10:12 | Progress Note ---
Hospitalist Physical - Constitutional Vitals: Temp Pulse Resp BP Pulse Ox 97.6 F 99 H 20 150/60 97 06/02/17 04:41 06/02/17 05:12 06/02/17 04:41 06/02/17 04:41 06/02/17 09:18 General appearance: Present: no acute distress Results - Labs CBC & Chem 7: 06/01/17 05:10 06/01/17 05:10 Labs: Laboratory Last Values WBC 6.1 K/mm3 (4.5-11.0) 06/01/17 05:10 RBC 3.00 M/mm3 (3.65-5.03) L 06/01/17 05:10 Hgb 9.0 gm/dl (10.1-14.3) L 06/01/17 05:10 Hct 29.4 % (30.3-42.9) L D 06/01/17 05:10 MCV 88 fl (79-97) 06/01/17 05:10 MCH 30 pg (28-32) 06/01/17 05:10 MCHC 34 % (30-34) 06/01/17 05:10 RDW 15.3 % (13.2-15.2) H 06/01/17 05:10 Plt Count 237 K/mm3 (140-440) 06/01/17 05:10 Lymph % (Auto) 7.9 % (13.4-35.0) L 06/01/17 05:10 Placer % (Auto) 8.6 % (0.0-7.3) H 06/01/17 05:10 Eos % (Auto) 1.2 % (0.0-4.3) 06/01/17 05:10 Baso % (Auto) 0.2 % (0.0-1.8) 06/01/17 05:10 Lymph # 0.5 K/mm3 (1.2-5.4) L 06/01/17 05:10 Placer # 0.5 K/mm3 (0.0-0.8) 06/01/17 05:10 Eos # 0.1 K/mm3 (0.0-0.4) 06/01/17 05:10 Baso # 0.0 K/mm3 (0.0-0.1) 06/01/17 05:10 Seg Neutrophils % 82.1 % (40.0-70.0) H 06/01/17 05:10 Seg Neutrophils # 5.0 K/mm3 (1.8-7.7) 06/01/17 05:10 POC ABG pH 7.421 (7.35-7.45) 06/01/17 16:14 POC ABG pCO2 38.5 (35-45) 06/01/17 16:14 POC ABG pO2 75 (80-105) L 06/01/17 16:14 POC ABG HCO3 25.0 06/01/17 16:14 POC ABG Total CO2 26 06/01/17 16:14 POC ABG O2 Sat 95 06/01/17 16:14 POC ABG Base Excess 1 06/01/17 16:14 VBG pH 7.035 (7.320-7.420) L* 05/29/17 20:40 FiO2 21 % 06/01/17 16:14 Sodium 135 mmol/L (137-145) L 06/01/17 05:10 Potassium 4.6 mmol/L (3.6-5.0) 06/01/17 05:10 Chloride 98.7 mmol/L (98-107) 06/01/17 05:10 Carbon Dioxide 25 mmol/L (22-30) 06/01/17 05:10 Anion Gap 16 mmol/L 06/01/17 05:10 BUN 26 mg/dL (7-17) H 06/01/17 05:10 Creatinine 0.8 mg/dL (0.7-1.2) 06/01/17 05:10 Estimated GFR > 60 ml/min 06/01/17 05:10 BUN/Creatinine Ratio 33 % 06/01/17 05:10 Glucose 123 mg/dL (65-100) H 06/01/17 05:10 POC Glucose 150 (70-105) H 06/02/17 07:24 Osmolality 360 Mosm/kg 05/29/17 20:22 Lactic Acid 13.00 mmol/L (0.7-2.0) H* 05/29/17 20:22 Calcium 7.9 mg/dL (8.4-10.2) L 06/01/17 05:10 Phosphorus 7.20 mg/dL (2.5-4.5) H 05/29/17 21:37 Magnesium 2.50 mg/dL (1.7-2.3) H 05/29/17 21:37 Total Bilirubin 0.20 mg/dL (0.1-1.2) 05/29/17 20:22 AST 107 units/L (5-40) H 05/29/17 20:22 ALT 33 units/L (7-56) 05/29/17 20:22 Alkaline Phosphatase 139 units/L (35-129) H 05/29/17 20:22 Troponin T 0.010 ng/mL (0.00-0.029) 05/29/17 20:22 Total Protein 6.8 g/dL (6.3-8.2) 05/29/17 20:22 Albumin 3.4 g/dL (3.9-5) L 05/29/17 20: Albumin/Globulin Ratio 1.0 % 05/29/17 20:22 Urine Color Yellow (Yellow) 05/29/17 Unknown Urine Turbidity Clear (Clear) 05/29/17 Unknown Urine pH 5.0 (5.0-7.0) 05/29/17 Unknown Ur Specific [place] 1.016 (1.003-1.030) 05/29/17 Unknown Urine Protein 30 mg/dl mg/dL (Negative) 05/29/17 Unknown Urine Glucose (UA) >=500 mg/dL (Negative) 05/29/17 Unknown Urine Ketones Tr mg/dL (Negative) 05/29/17 Unknown Urine Blood Mod (Negative) 05/29/17 Unknown Urine Nitrite Neg (Negative) 05/29/17 Unknown Urine Bilirubin Neg (Negative) 05/29/17 Unknown Urine Urobilinogen < 2.0 mg/dL (<2.0) 05/29/17 Unknown Ur Leukocyte Esterase Lg (Negative) 05/29/17 Unknown Urine WBC (Auto) > 182.0 /HPF (0.0-6.0) H 05/29/17 Unknown Urine RBC (Auto) 90.0 /HPF (0.0-6.0) 05/29/17 Unknown U Epithel Cells (Auto) 1.0 /HPF (0-13.0) 05/29/17 Unknown Urine Bacteria (Auto) 1+ /HPF (Negative) 05/29/17 Unknown Urine WBC Clumps 3+ /HPF 12/15/17 Unknown Urine Mucus Few /HPF 05/29/17 Unknown Urine Yeast (Budding) 3+ /HPF 05/29/17 Unknown
--- NOTE | 2017-06-02 14:18 | Discharge Summary ---
<FELIPE CASPER - Last Filed: 06/04/17 09:50> Providers - Providers Date of Admission: 05/29/17 21:56 Date of discharge: 06/02/17 Attending physician: EARLENE FRANCE MD 05/29/17 21:58 Consult to Physician [CONS] Routine Consulting Provider: ANRDEAS MAO Reason For Exam: cc Place consult to:: Dr. Mao Notified:: Answering Service Phone number called:: [phone] Was contact made?: Yes If yes, spoke with:: Dr. Mao Time called:: 21:37 Comment:: Dr. Fajardo ( dr) spoke with Dr. Mao 06/01/17 14:44 Physical Therapy Evaluation and Treat [CONS] Routine Comment: Reason For Exam: weakness Primary care physician: DIAMOND SAW OPERATOR Hospitalization Condition: Stable Pertinent studies: Chest x-ray revealed no acute cardiopulmonary abnormality and shallow inspiration with elevation right hemidiaphragm. Upper extremity CT rate showed the bones appear intact without fracture or dislocation. The joint spaces appear satisfactory and there were no definite joint effusions. The soft tissues were unremarkable. Shoulder x-ray revealed no fracture or dislocation. Left upper extremity venous duplex ultrasound revealed no evidence of acute or chronic DVT in the left upper extremity. Hospital course: 86-year-old [place] female with past medical history significant for diabetes mellitus, subdural hematoma, phlebitis admitted to ICU for the management of DKA. Patient has G-tube, but she is able to eat by mouth. She was just discharged about a week ago after treating for similar DKA episode. Patient was treated with IV fluids, insulin, calcium, and antibiotics. Patient was clinically stable. Discharge diagnoses DKA Diabetes mellitus with hyperglycemia UTI Weakness debility Metabolic acidosis due to DKA Subdural hematoma 2 LUCINDA Left arm pain and swelling DVT prophylaxis Disposition: DC-01 TO HOME OR SELFCARE Core Measure Documentation - Palliative Care Palliative Care/ Comfort Measures: Not Applicable - Core Measures Any of the following diagnoses?: none Exam - Constitutional Vitals: Temp Pulse Resp BP Pulse Ox 97.6 F 99 H 20 150/60 97 06/02/17 04:41 06/02/17 05:12 06/02/17 04:41 06/02/17 04:41 06/02/17 09:18 General appearance: Present: no acute distress, well-nourished - EENT Eyes: Present: PERRL ENT: hearing intact, clear oral mucosa - Neck Neck: Present: supple, normal ROM - Respiratory Respiratory effort: normal Respiratory: bilateral: CTA - Cardiovascular Heart Sounds: Present: S1 & S2. Absent: rub, click - Extremities Extremities: pulses symmetrical, No edema Peripheral Pulses: within normal limits - Abdominal General gastrointestinal: Present: soft, non-tender, non-distended, normal bowel sounds Female genitourinary: Present: deferred - Rectal Rectal Exam: deferred - Integumentary Integumentary: Present: clear, warm, dry - Musculoskeletal Musculoskeletal: gait normal, strength equal bilaterally - Psychiatric Psychiatric: appropriate mood/affect, intact judgment & insight - Neurologic Neurologic: CNII-XII intact, moves all extremities - Allied Health Allied health notes reviewed: nursing Plan Activity: fall precautions Weight Bearing Status: Weight Bear as Tolerated Diet: low fat, low cholesterol, low salt, diabetic Follow up with: PRIMARY CARE, [Primary Care Provider] - 3-5 Days <EARLENE FRANCE - Last Filed: 06/18/17 17:52> Providers - Providers Date of Admission: 05/29/17 21:56 Attending physician: EARLENE FRANCE MD 05/29/17 21:58 Consult to Physician [CONS] Routine Consulting Provider: ANDREAS MAO Reason For Exam: cc Place consult to:: Dr. Mao Notified:: Answering Service Phone number called:: [phone] Was contact made?: Yes If yes, spoke with:: Dr. Mao Time called:: 21:37 Comment:: Dr. Fajardo (er dr) spoke with Dr. Mao 06/01/17 14:44 Physical Therapy Evaluation and Treat [CONS] Routine Comment: Reason For Exam: weakness Primary care physician: DIAMOND SAW OPERATOR Exam - Constitutional Vitals: Temp Pulse Resp BP Pulse Ox 97.6 F 85 20 150/60 97 06/02/17 04:41 06/02/17 10:00 06/02/17 04:41 06/02/17 04:41 06/02/17 09:18
--- NOTE | 2017-06-03 12:48 | Vascular Lab Report ---
LEFT UPPER EXTREMITY VENOUS DUPLEX: REASON FOR EXAM: Pain and swelling of the left upper extremity COMMENTS ON THE LEFT: All arm veins visualized are freely compressible without evidence of internal echogenicity. The subclavian and internal jugular veins are free of thrombus. Flow is spontaneous and phasic throughout COMMENTS ON THE RIGHT: A limited study of the jugular and subclavian veins shows no evidence of thrombus. IMPRESSION: No evidence of acute or chronic deep venous thrombosis in the left upper extremity.
--- NOTE | 2017-06-03 16:39 | Query- Renal Failure ---
Dear ___Chrissy Date:____06/03/17 Foundry Hand/CDS:__Akhil Phone#:__[phone] Exercise your independent professional judgment when responding to query. Questions asked do not imply a particular answer is desired or expected. We greatly appreciate your clarification on this issue. Clinical Documentation States: 86 year old female was admitted on 05/29/17 The H&P (Dr. Gabriel) states " 86-year-old lady with a history of diabetes, CVA was brought to the emergency room for fingerstick reading high. " The progress note (Dr. Lowe 05/31/17) states " /LUCINDA - cont iv fluid, renal function improved " The pulmonology progress note (Dr. Rojas 06/01/17) states " 3) ARF (acute renal failure) Management as per primary care and nephrology. " Clinical Findings Show: 05/29/17 06/01/17 Creatinine: 1.8 0.8 BUN/Creatinine Ratio: 22 33 Please clarify if you mean: Acute Renal Failure with or due to: [ ] Tubular Necrosis [ ] Medullary Necrosis [ x] Vasomotor Nephropathy [ ] Shock Kidney [ ] Tubular Nephrosis [ ] Renal Tubular Stasis [ ] Cortical Necrosis [ ] Acute Renal Failure (unspecified) [ ] Lower Tubular Nephrosis [ ] Other: [ ] Not Applicable Present on Admission: [ x] Yes (Y) [ ] Clinically undeterminable (W) [ ] No (N) Please also document response in your Progress Notes and/or Discharge Summary and indicate if the condition was present on admission. MTDD
--- NOTE | 2017-06-09 13:49 | Query-Infection ---
Deamitesh Graham____Chrissy Date:__06/09/17 Mainframe Systems Engineer/CDS: Phone#: Exercise your independent professional judgment when responding to this query. Questions asked do not imply a particular answer is desired or expected. We greatly appreciate your clarification on this issue. Clinical Documentation States: 86 year old female was admitted on 05/29/17 The progress note (Dr. Lowe 05/30/17) states " Assessment and Plan /DKA /Metabolic Acidosis due to DKA /UTI - cont her on ceftriaxone - will follow the culture result " Lactic acid: 13 Pulse rate: 104 Respiratory rate: 35 Medications: IV levofloxacin, ceftriaxone Clinical findings show: (please check applicable parameters) Infection, known /suspected, with some of the following indicators; Specify the infection: 3 General parameters [ ] Fever (core temp >38.30C or 100.40F) [ ] Hypothermia (core temp <36C) [x ] Heart rate >90 bpm [ x] Tachypnea: >20 bpm or pCO2 < 32 mmHg [ ] Altered mental status [ ] Significant edema / +ve fluid balance (>20 ml/kg 24 h) [ ] Hyperglycemia (Bl. glucose >110 mg/dl) w/o diabetes Inflammatory parameters [ ] Leukocytosis (white blood cell count >12,000/l) [ ] Leukopenia (white blood cell count <4,000/l) [ ] Bandemia (immature WBC > 10%) [ ] Leucocyte Left Shift [ ] Plasma procalcitonin>2 SD above the normal value Hemodynamic and tissue perfusion parameters [ ] Arterial hypotension(SBP <90 mmHg, MAP <70 mmHg,or a SBP drop >40 mmHg in adults) [ ] Hyperlactatemia (>3 mmol/l) [ ] Anion Gap (> 11mEG/l) [ ] Decreased capillary refill or mottling Organ dysfunction parameters [ ] Arterial hypoxemia (PaO2/FIO2 <300) [ ] Creatinine increase =0.5 mg/dl [ ] Acute oliguria (urine output <0.5 ml | kg |h or 45 mM/l for at least 2 hrs) [ ] Coagulation abnormalities (INR >1.5 or activated partial thromboplastin time >60 s) [ ] Ileus (absent ling wel sounds) [ ] Thrombocytopenia (platelet count <100,000/l) [ ] Hyperbilirubinemia (plasma total bilirubin >4 mg/dl) According to the clinical indications above, can Bacteremia be further specified? If so, please indicate below and in your Progress Notes and/ or Discharge Summary. Indicate if the condition was present on admission. PHYSICIAN RESPONSE: [x ] Sepsis [ ] Severe Sepsis [ ] Septic Shock [ ] Septicemia [ ] Sepsis now resolved [ ] SIRS due to non-infectious cause with organ dysfunction [ ] SIRS due to non-infectious cause without organ dysfunction [ ] Other: [ ] Comment/Explanation: Present on Admission: [x ] Yes (Y) [ ] Clinically undeterminable (W) [ ] No (N) [ ] Ruled Out Please also document response in your Progress Notes and/or Discharge Summary and indicate if the condition was present on admission Notes: SIRS/ SIRS WITH ORGAN DYSFUNCTION Systemic inflammatory response syndrome (SIRS) generally refers to the systemic response to trauma/garcia or other insult such as Acute Myocardial Infarction, Acute Pancreatitis, and Major Surgery with symptoms including fever, tachycardia , tachypnea, and leukocytosis (1). BACTEREMIA Presence of viable bacteria in the circulating blood (2). This term is reserved for patients that do not manifest above SIRS response. SEPTICEMIA Generally refers to a systemic disease associated with the presence of pathological microorganisms or toxins in the blood, which can include bacteria, viruses, fungi or other organisms (1). SEPSIS Generally refers to SIRS due infection (1). SEVERE SEPSIS Generally refers to sepsis associated with acute organ dysfunction (1). SEPTIC SHOCK Generally refers to circulatory failure associated with severe sepsis (2), and defined as hypotension or hypoperfusion despite adequate fluid resuscitation (1 hour) (3). REFERENCES: 1. [place] [employer]/Society of Critical Care Medicine Consensus Conference. Definitions for sepsis and organ failure and guidelines for the use of innovative therapies in sepsis. Critical Care Med 1992;20:864 - 74. 2. Alen valle MM, Javier MP, Isauro GANGA, Martin E, Neal D, Waqar D, Rich J, Fela MCRAE , Jt ERAZO, Brenda G; International Sepsis Definitions Conference. 2001 SCCM/ESICM/ACCP/ATS/SIS International Sepsis Definitions Conference. Intensive Care Med. 2002 Apr;29(4):530-8. Epub 2002Sep 09. Review. PubMed PMID:[id number] 3. ICD-9-CM Official Guidelines for Coding and Reporting 4. Medscape Drugs, Diseases and Procedures references 5. [employer] Textbook of Internal Medicine. 18th Edition MTDD
== END 2017-06-02 18:42 | disposition home or self-care (01) | DRG 871 ==
LOC: ED 20:10 → EEVIPCON 20:10 → CC1 21:56 → 4A 05-30 21:00
PROVIDERS: ADMIT Internal Medicine; ATTEND Internal Medicine
PROC: 4A033R1 Measurement of Arterial Saturation, Peripheral, Percutaneous Approach (ICD-10-PCS; principal; 2017-05-29)
DX: A41.9 Sepsis, unspecified organism (principal); E11.10 Type 2 diabetes mellitus with ketoacidosis without coma; N17.0 Acute kidney failure with tubular necrosis; I62.00 Nontraumatic subdural hemorrhage, unspecified; N39.0 Urinary tract infection, site not specified; E87.1 Hypo-osmolality and hyponatremia; M79.602 Pain in left arm; M79.89 Other specified soft tissue disorders; M17.0 Bilateral primary osteoarthritis of knee; R09.02 Hypoxemia; Z93.1 Gastrostomy status; Z86.73 Personal history of transient ischemic attack (TIA), and cerebral infarction without residual deficits; Z86.718 Personal history of other venous thrombosis and embolism; Z79.899 Other long term (current) drug therapy; Z79.4 Long term (current) use of insulin; Z83.3 Family history of diabetes mellitus
CPT/HCPCS: 36415; 36600; 71010; 80048; 80053; 81001; 82140; 82803; 82805; 82962; 83735; 83930; 84100; 84484; 85025; 87040; 93005; 93010; 93970; 94760; 96361; 96365; 96375; A9270-GY; G8978-GP; G8979-GP; J0610; J0696; J1815; J1818; J7030; J7040

== ENCOUNTER 2017-07-20 08:57 | Inpatient (IN) | payer MEDICAID, MEDICARE ==
--- NOTE | 2017-07-20 09:45 | Emergency Department Report ---
<ADEEL PAEZ M - Last Filed: 07/20/17 13:58> ED Altered Mental Status HPI - General Chief Complaint: Altered Mental Status Stated Complaint: UNRESPONSIVE Time Seen by Provider: 07/20/17 09:02 - Related Data Home Medications Medication Instructions Recorded Confirmed Last Taken amLODIPine [Norvasc] 5 mg PO DAILY 05/20/17 07/20/17 1 Day Ago ~05/31/17 Insulin Degludec [Tresiba 35 unit SQ DAILY 06/01/17 07/20/17 1 Day Ago Flextouch U-100] ~05/31/17 Insulin Aspart [NovoLOG Flexpen] 0 units SQ AC 07/20/17 07/20/17 Unknown Linagliptin [Tradjenta] 5 mg PO QDAY 07/20/17 07/20/17 Unknown Allergies Allergy/AdvReac Type Severity Reaction Status Date / Time heparin AdvReac Bleeding Verified 05/20/17 18:51 ED Review of Systems ROS: Stated complaint: UNRESPONSIVE Other details as noted in HPI ED Past Medical Hx - Medications Home Medications: Home Medications Medication Instructions Recorded Confirmed Last Taken Type amLODIPine [Norvasc] 5 mg PO DAILY 05/20/17 07/20/17 1 Day Ago History ~05/31/17 Insulin Degludec [Tresiba 35 unit SQ DAILY 06/01/17 07/20/17 1 Day Ago History Flextouch U-100] ~05/31/17 Insulin Aspart [NovoLOG Flexpen] 0 units SQ AC 07/20/17 07/20/17 Unknown History Linagliptin [Tradjenta] 5 mg PO QDAY 07/20/17 07/20/17 Unknown History ED Course Vital Signs 07/20/17 07/20/17 07/20/17 08:59 09:09 09:16 Temperature 98.9 F Pulse Rate 93 H 92 H Respiratory 24 13 Rate Blood Pressure 177/83 164/71 164/71 Blood Pressure [Right] O2 Sat by Pulse 92 Oximetry 07/20/17 07/20/17 07/20/17 09:20 09:30 09:46 Temperature 99.9 F H Pulse Rate 86 78 Respiratory 11 L 8 L Rate Blood Pressure 152/65 161/64 Blood Pressure [Right] O2 Sat by Pulse 100 Oximetry 02/05/18 02/05/18 02/05/18 10:12 10:16 10:30 Temperature Pulse Rate 79 79 87 Respiratory 10 L 9 L 11 L Rate Blood Pressure 154/60 154/60 148/55 Blood Pressure [Right] O2 Sat by Pulse 100 100 100 Oximetry 07/20/17 07/20/17 07/20/17 10:46 11:00 11:16 Temperature Pulse Rate 83 88 82 Respiratory 11 L 11 L 9 L Rate Blood Pressure 153/70 176/69 Blood Pressure [Right] O2 Sat by Pulse 100 Oximetry 07/20/17 07/20/17 07/20/17 11:30 11:45 12:03 Temperature Pulse Rate 83 78 70 Respiratory 13 10 L 11 L Rate Blood Pressure 163/54 162/61 Blood Pressure [Right] O2 Sat by Pulse 100 100 100 Oximetry 07/20/17 07/20/17 07/20/17 12:06 12:15 12:30 Temperature Pulse Rate 70 70 68 Respiratory 12 12 Rate Blood Pressure 103/40 122/41 Blood Pressure 122/42 [Right] O2 Sat by Pulse 100 100 Oximetry 07/20/17 07/20/17 12:45 13:00 Temperature Pulse Rate 80 78 Respiratory 13 12 Rate Blood Pressure 137/55 161/56 Blood Pressure [Right] O2 Sat by Pulse 100 100 Oximetry - Lab Data Result diagrams: 07/20/17 09:27 07/20/17 09:27 Lab Results 07/20/17 07/20/17 07/20/17 Range/Units 09:27 09:27 09:27 WBC 5.7 (4.5-11.0) K/mm3 RBC 3.68 (3.65-5.03) M/mm3 Hgb 11.4 (10.1-14.3) gm/dl Hct 33.7 (30.3-42.9) % MCV 92 (79-97) fl MCH 31 (28-32) pg MCHC 34 (30-34) % RDW 15.2 (13.2-15.2) % Plt Count 328 (140-440) K/mm3 Lymph % (Auto) 16.2 (13.4-35.0) % [place] % (Auto) 7.4 H (0.0-7.3) % Eos % (Auto) 0.7 (0.0-4.3) % Baso % (Auto) 0.2 (0.0-1.8) % Lymph # 0.9 L (1.2-5.4) K/mm3 [place] # 0.4 (0.0-0.8) K/mm3 Eos # 0.0 (0.0-0.4) K/mm3 Baso # 0.0 (0.0-0.1) K/mm3 Seg Neutrophils % 75.5 H (40.0-70.0) % Seg Neutrophils # 4.3 (1.8-7.7) K/mm3 PT (12.2-14.9) Sec. INR (0.87-1.13) APTT (24.2-36.6) Sec. Sodium 137 (137-145) mmol/L Potassium 4.4 (3.6-5.0) mmol/L Chloride 98.3 (98-107) mmol/L Carbon Dioxide 23 (22-30) mmol/L Anion Gap 20 mmol/L BUN 18 H (7-17) mg/dL Creatinine 0.5 L (0.7-1.2) mg/dL Estimated GFR > 60 ml/min BUN/Creatinine Ratio 36 % Glucose 106 H (65-100) mg/dL POC Glucose (70-105) Lactic Acid 2.50 H* (0.7-2.0) mmol/L Calcium 8.8 (8.4-10.2) mg/dL Total Bilirubin 0.20 (0.1-1.2) mg/dL AST 46 H (5-40) units/L ALT 28 (7-56) units/L Alkaline Phosphatase 101 (35-129) units/L Ammonia (25-60) umol/L Total Creatine Kinase (30-135) units/L Troponin T (0.00-0.029) ng/mL Total Protein 7.2 (6.3-8.2) g/dL Albumin 3.5 L (3.9-5) g/dL Albumin/Globulin Ratio 0.9 % TSH (0.270-4.200) mlU/mL Salicylates (2.8-20.0) mg/dL Acetaminophen (10.0-30.0) ug/mL Plasma/Serum Alcohol (0-0.07) % 07/20/17 07/20/17 07/20/17 Range/Units 09:27 09:27 09:27 WBC (4.5-11.0) K/mm3 RBC (3.65-5.03) M/mm3 Hgb (10.1-14.3) gm/dl Hct (30.3-42.9) % MCV (79-97) fl MCH (28-32) pg MCHC (30-34) % RDW (13.2-15.2) % Plt Count (140-440) K/mm3 Lymph % (Auto) (13.4-35.0) % [place] % (Auto) (0.0-7.3) % Eos % (Auto) (0.0-4.3) % Baso % (Auto) (0.0-1.8) % Lymph # (1.2-5.4) K/mm3 [place] # (0.0-0.8) K/mm3 Eos # (0.0-0.4) K/mm3 Baso # (0.0-0.1) K/mm3 Seg Neutrophils % (40.0-70.0) % Seg Neutrophils # (1.8-7.7) K/mm3 PT 12.2 (12.2-14.9) Sec. INR 0.87 (0.87-1.13) APTT 22.3 L (24.2-36.6) Sec. Sodium (137-145) mmol/L Potassium (3.6-5.0) mmol/L Chloride (98-107) mmol/L Carbon Dioxide (22-30) mmol/L Anion Gap mmol/L BUN (7-17) mg/dL Creatinine (0.7-1.2) mg/dL Estimated GFR ml/min BUN/Creatinine Ratio % Glucose (65-100) mg/dL POC Glucose (70-105) Lactic Acid (0.7-2.0) mmol/L Calcium (8.4-10.2) mg/dL Total Bilirubin (0.1-1.2) mg/dL AST (5-40) units/L ALT (7-56) units/L Alkaline Phosphatase (35-129) units/L Ammonia 61.0 H (25-60) umol/L Total Creatine Kinase (30-135) units/L Troponin T (0.00-0.029) ng/mL Total Protein (6.3-8.2) g/dL Albumin (3.9-5) g/dL Albumin/Globulin Ratio % TSH (0.270-4.200) mlU/mL Salicylates (2.8-20.0) mg/dL Acetaminophen (10.0-30.0) ug/mL Plasma/Serum Alcohol < 0.01 (0-0.07) % 07/20/17 07/20/17 07/20/17 Range/Units 09:27 09:27 09:27 WBC (4.5-11.0) K/mm3 RBC (3.65-5.03) M/mm3 Hgb (10.1-14.3) gm/dl Hct (30.3-42.9) % MCV (79-97) fl MCH (28-32) pg MCHC (30-34) % RDW (13.2-15.2) % Plt Count (140-440) K/mm3 Lymph % (Auto) (13.4-35.0) % [place] % (Auto) (0.0-7.3) % Eos % (Auto) (0.0-4.3) % Baso % (Auto) (0.0-1.8) % Lymph # (1.2-5.4) K/mm3 [place] # (0.0-0.8) K/mm3 Eos # (0.0-0.4) K/mm3 Baso # (0.0-0.1) K/mm3 Seg Neutrophils % (40.0-70.0) % Seg Neutrophils # (1.8-7.7) K/mm3 PT (12.2-14.9) Sec. INR (0.87-1.13) APTT (24.2-36.6) Sec. Sodium (137-145) mmol/L Potassium (3.6-5.0) mmol/L Chloride (98-107) mmol/L Carbon Dioxide (22-30) mmol/L Anion Gap mmol/L BUN (7-17) mg/dL Creatinine (0.7-1.2) mg/dL Estimated GFR ml/min BUN/Creatinine Ratio % Glucose (65-100) mg/dL POC Glucose (70-105) Lactic Acid (0.7-2.0) mmol/L Calcium (8.4-10.2) mg/dL Total Bilirubin (0.1-1.2) mg/dL AST (5-40) units/L ALT (7-56) units/L Alkaline Phosphatase (35-129) units/L Ammonia (25-60) umol/L Total Creatine Kinase 71 (30-135) units/L Troponin T < 0.010 (0.00-0.029) ng/mL Total Protein (6.3-8.2) g/dL Albumin (3.9-5) g/dL Albumin/Globulin Ratio % TSH 0.929 (0.270-4.200) mlU/mL Salicylates < 0.3 L (2.8-20.0) mg/dL Acetaminophen (10.0-30.0) ug/mL Plasma/Serum Alcohol (0-0.07) % 07/20/17 07/20/17 Range/Units 09:27 09:38 WBC (4.5-11.0) K/mm3 RBC (3.65-5.03) M/mm3 Hgb (10.1-14.3) gm/dl Hct (30.3-42.9) % MCV (79-97) fl MCH (28-32) pg MCHC (30-34) % RDW (13.2-15.2) % Plt Count (140-440) K/mm3 Lymph % (Auto) (13.4-35.0) % [place] % (Auto) (0.0-7.3) % Eos % (Auto) (0.0-4.3) % Baso % (Auto) (0.0-1.8) % Lymph # (1.2-5.4) K/mm3 [place] # (0.0-0.8) K/mm3 Eos # (0.0-0.4) K/mm3 Baso # (0.0-0.1) K/mm3 Seg Neutrophils % (40.0-70.0) % Seg Neutrophils # (1.8-7.7) K/mm3 PT (12.2-14.9) Sec. INR (0.87-1.13) APTT (24.2-36.6) Sec. Sodium (137-145) mmol/L Potassium (3.6-5.0) mmol/L Chloride (98-107) mmol/L Carbon Dioxide (22-30) mmol/L Anion Gap mmol/L BUN (7-17) mg/dL Creatinine (0.7-1.2) mg/dL Estimated GFR ml/min BUN/Creatinine Ratio % Glucose (65-100) mg/dL POC Glucose 125 H (70-105) Lactic Acid (0.7-2.0) mmol/L Calcium (8.4-10.2) mg/dL Total Bilirubin (0.1-1.2) mg/dL AST (5-40) units/L ALT (7-56) units/L Alkaline Phosphatase (35-129) units/L Ammonia (25-60) umol/L Total Creatine Kinase (30-135) units/L Troponin T (0.00-0.029) ng/mL Total Protein (6.3-8.2) g/dL Albumin (3.9-5) g/dL Albumin/Globulin Ratio % TSH (0.270-4.200) mlU/mL Salicylates (2.8-20.0) mg/dL Acetaminophen < 15.0 (10.0-30.0) ug/mL Plasma/Serum Alcohol (0-0.07) % Critical care attestation.: If time is entered above; I have spent that time in minutes in the direct care of this critically ill patient, excluding procedure time. ED Disposition Clinical Impression: Debility, Altered mental status Disposition: DC-09 OP ADMIT IP TO THIS HOSP Condition: Fair <LUPEHI - Last Filed: 07/20/17 15:01> ED Altered Mental Status HPI - General Source: EMS (verbal report received from EMS.ems notes not available at time of chart dictation), RN notes reviewed, old records reviewed Mode of arrival: [place] Limitations: No Limitations - History of Present Illness Initial Comments: This is an 86-year-old female, the patient is previously known to this provider , primary care doctor is Dr. Lindsey, past medical history includes diabetes, weakness, debility, subdural hematoma 2, G-tube feedings, accompanied by son who is a practicing green meat packer at this hospital, he reports that the patient's advanced directives are DO NOT RESUSCITATE, DO NOT INTUBATE. The patient is brought to the hospital by EMS for altered mental status and weakness. As per her son and verbal report from EMS, patient had some issues with hyperglycemia, was given insulin, sugar then decreased, patient subsequently given glucagon. As per her son, the patient is typically conversant, last known well time was last night. The patient is altered and cannot describe exacerbating or relieving factors, radiation or qualitative nature. Urine culture from May 2017 demonstrated Escherichia coli which was pansensitive. MD Complaint: altered mental status, confusion, decreased responsiveness -: Gradual Context: history of similar presen, other (as per history of present illness) ED Review of Systems Comment: Unobtainable due to pts medical conditions ED Past Medical Hx - Past Medical History Hx CVA: Yes (hemorrhagic CVA) Hx Diabetes: Yes Additional medical history: anemia, DVT - Surgical History Additional Surgical History: Intracranial hemorrhage evacuation. G-tube - Social History Smoking Status: Unknown if ever smoked ED Physical Exam - General Limitations: No Limitations, Altered Mental Status General appearance: lethargic - Head Head exam: Present: atraumatic, normocephalic - Eye Eye exam: Present: normal appearance - ENT ENT exam: Present: mucous membranes dry - Neck Neck exam: Present: normal inspection. Absent: tenderness, meningismus - Respiratory Respiratory exam: Present: decreased breath sounds. Absent: respiratory distress, wheezes, rales, rhonchi, stridor - Cardiovascular Cardiovascular Exam: Present: regular rate, normal rhythm, normal heart sounds. Absent: bradycardia, tachycardia, irregular rhythm, systolic murmur, diastolic murmur, rubs, gallop - GI/Abdominal GI/Abdominal exam: Present: soft, normal bowel sounds, other (feeding tube noted in the left hemiabdomen.). Absent: distended, tenderness, guarding, rebound, rigid, pulsatile mass - Rectal Rectal exam: Present: normal inspection, other (no skin ulceration is noted) - Extremities Exam Extremities exam: Present: normal inspection. Absent: pedal edema, joint swelling - Back Exam Back exam: Present: normal inspection. Absent: paraspinal tenderness - Neurological Exam Neurological exam: Present: altered - Psychiatric Psychiatric exam: Present: other (patient nonverbal) - Skin Skin exam: Present: warm, dry, intact, normal color. Absent: rash - LOC Questions 1b. LOC Questions: answers no questions correctly - LOC Command 1c. LOC Commands: performs no tasks correctly - Best Gaze 2. Best Gaze: normal (Unable to assess) - Visual 3. Visual: bilateral hemianopia (Unable to assess) - Facial Palsy 4. Facial Palsy: complete paralysis (Unable to assess) - Motor Arm 5b. Motor Arm Right: no movement 5a. Motor Arm Left: no movement - Motor Leg 6a. Motor Leg Left: no movement 6b. Motor Leg Right: no movement - Limb Ataxia 7. Limb Ataxia: amputation - Sensory 8. Sensory: severe/total sensory loss - Best Language 9. Best Language: mute/global aphasia - Dysarthria 10. Dysarthria: intubated or other barrier - Extinction and Inattention 11. Extinction/Inattention: profound inattention ED Course - Reevaluation(s) Reevaluation #1: 07/20/17 09:43 Differential diagnosis, including but not limited to: Intracranial hemorrhage, stroke, pneumonia, urinary tract infection, debility, polypharmacy Assessment and plan: 86-year-old female, as per discussion with son, advanced directives include DO NOT RESUSCITATE, DO NOT INTUBATE. Laboratory studies, x- ray, urinalysis, noncontrast CT scan of the brain ordered. Not a TPA candidate given history of intracranial bleed 2, and unknown exact onset of symptoms. Low-grade rectal temperature to 99.9, favor toxic metabolic encephalopathy. Patient's son has informed me that he has contacted consulting neurologist, Dr. Joel; I will contact him as well to clarify whether or not he can follow in consultation. Patient's son is amenable to medical therapy. Reevaluation #2: 07/20/17 10:[address] scan of the brain is negative. X-ray of the chest is negative. I have discussed with neurology, Dr. Joel; he indicates he will follow in consultation. Reevaluation #3: 07/20/17 10:48 Laboratory studies mostly unremarkable. Elevated lactic acid is appreciated, this may be secondary to tourniquet time. Leone catheter placed by nursing staff to obtain urine sample, as of yet the patient has not produced any urine. IV fluids ordered, case presented to the Hospital physician, Dr. Helton; he accepted the patient on behalf of Dr. Paez Reevaluation #4: 07/20/17 15:00 Urinalysis suggested urinary tract infection; antibiotics were ordered - Lab Data Result diagrams: 07/20/17 09:27 07/20/17 13:51 - EKG Data -: EKG Interpreted by Oh EKG shows normal: sinus rhythm Rate: normal Interpretation: unchanged when compared t 07/20/17 10:47 Normal sinus, 78 bpm, left axis deviation, low voltage, abnormal EKG, not morphologically consistent with ST elevation myocardial infarction. Appears grossly unchanged from prior EKG from May 2017. - Radiology Data Radiology results: report reviewed, image reviewed X-ray of the chest is negative. Noncontrast CT scan of the brain is negative. - Core Measures Measure Exclusions: not indicated - NEXUS Criteria Focal neurological deficit present: No Midline spinal tenderness present: No Altered level of consciousness: Yes (no history of trauma) Intoxication present: No Distracting injury present: No NEXUS results: C-Spine cannot be cleared clinically by these results. Imaging is required. ED Disposition Is pt being admited?: Yes
--- NOTE | 2017-07-20 09:49 | XRay Report ---
AP CHEST: HISTORY: Altered mental status AP view of the chest demonstrates a normal mediastinal and cardiac contour with clear lungs and normal bony and soft tissue structures. IMPRESSION: No acute cardiopulmonary process. No change since 05/31/17.
--- NOTE | 2017-07-20 10:02 | Cat Scan Report ---
CT HEAD WITHOUT CONTRAST: HISTORY: Altered mental status. TECHNIQUE: Sequential 2.5mm CT images. COMPARISON: none. FINDINGS: Cerebral Parenchyma: Within normal limits. Cerebellum: Within normal limits. Brainstem: Within normal limits. Ventricles: Normal. Sella: Normal. Extra-axial spaces: Normal. Basal Cisterns: Normal. Intracranial Hemorrhage: None. Midline Shift: None. Calvarium: Right frontal craniotomy changes are identified, correlate with surgical history. Sinuses: Normal. Mastoid Air Cells: Normal. Visualized Orbits: Normal. IMPRESSION: Cranial CT scan within normal limits.
[2017-07-20 10:15] LABS: Basophils % (Auto) 0.2 % (0.0-1.8); Eosinophils % (Auto) 0.7 % (0.0-4.3); Hematocrit 33.7 % (30.3-42.9); Hemoglobin 11.4 gm/dl (10.1-14.3); Lymphocytes # (Auto) 0.9 K/mm3 (1.2-5.4); Lymphocytes % (Auto) 16.2 % (13.4-35.0); Mean Corpuscular HGB Conc 34 % (30-34); Mean Corpuscular Hemoglobin 31 pg (28-32); Mean Corpuscular Volume 92 fl (79-97); Monocytes # (Auto) 0.4 K/mm3 (0.0-0.8); Monocytes % (Auto) 7.4 % (0.0-7.3); Platelet Count 328 K/mm3 (140-440); Red Blood Count 3.68 M/mm3 (3.65-5.03); Red Cell Distribution Width 15.2 % (13.2-15.2)
[2017-07-20 10:29] LABS: INR 0.87 (0.87-1.13)
[2017-07-20 10:30] LABS: Partial Thromboplastin Time 22.3 Sec. (24.2-36.6)
[2017-07-20 10:39] LABS: Alanine Aminotransferase 28 units/L (7-56); Albumin 3.5 g/dL (3.9-5); BUN/Creatinine Ratio 36; Blood Urea Nitrogen 18 mg/dL (7-17); Calcium 8.8 mg/dL (8.4-10.2); Hemolysis Index 16
[2017-07-20] MEDS ORDERED: NACL 0.9% 500 ML 500 ML IV ONE (10:43)
--- NOTE | 2017-07-20 12:02 | History and Physical Report ---
History of Present Illness Date of examination: 07/20/17 Date of admission: 07/20/17 10:49 Chief complaint: Altered mental status History of present illness: 86-year-old female with past medical history significant for diabetes mellitus, DKA, UTI, subdural hematoma 2, debility, G-tube feedings brought to the emergency department for the complaints of altered mental status. Patient was not able to give history, history is obtained from ER doctor and from her son who is a practicing community development officer at this hospital, he reports that the patient's advanced directives are DO NOT RESUSCITATE, DO NOT INTUBATE. As per her son the patient is typically conversant, and last well time was last night. Patient had episode of hyperglycemia and was given insulin and her blood sugar dropped down was given D50 in the emergency department her blood sugar was 125. 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 Review of system couldn't be obtained because of altered mental status Past History Past Medical History: diabetes, other (subdural hematoma) Past Surgical History: Other (intracranial hemorrhage evacuation, G-tube placement) Social history: AND/DNR-allow natural . denies: smoking, alcohol abuse, prescription drug abuse, IV drug use Family history: other (couldn't be obtained because of patient's altered) Medications and Allergies Allergies Allergy/AdvReac Type Severity Reaction Status Date / Time heparin AdvReac Bleeding Verified 05/20/17 18:51 Home Medications Medication Instructions Recorded Confirmed Last Taken Type amLODIPine [Norvasc] 5 mg PO DAILY 05/20/17 07/20/17 1 Day Ago History ~05/31/17 Insulin Degludec [Tresiba 35 unit SQ DAILY 06/01/17 07/20/17 1 Day Ago History Flextouch U-100] ~05/31/17 Insulin Aspart [NovoLOG Flexpen] 0 units SQ AC 07/20/17 07/20/17 Unknown History Linagliptin [Tradjenta] 5 mg PO QDAY 07/20/17 07/20/17 Unknown History Active Meds: Active Medications Lactulose (Cephulac) 200 gm AR ONCE ONE Stop: 07/20/17 12:00 Exam - Physical Exam Narrative exam: Comatose. On intranasal oxygen. The patient appeared emaciated. Vital signs as documented. Head exam is unremarkable. No scleral icterus . Neck is without jugular venous distension, thyromegaly, or carotid bruits. Lungs are clear to auscultation. Cardiac exam reveals regular rate and Rhythm. Abdominal exam reveals soft, no organomegaly. [employer]ING [employer]PER[employer]: Comatose. - Constitutional Vitals: Temp Pulse Resp BP Pulse Ox 99.9 F H 93 H 24 177/83 92 07/20/17 09:20 07/20/17 08:59 07/20/17 08:59 07/20/17 08:59 07/20/17 08:59 Results - Labs CBC & Chem 7: 07/20/17 09:27 07/20/17 09:27 Labs: Laboratory Last Values WBC 5.7 K/mm3 (4.5-11.0) 07/20/17: RBC 3.68 M/mm3 (3.65-5.03) 07/20/17 09: Hgb 11.4 gm/dl (10.1-14.3) 07/20/17: Hct 33.7 % (30.3-42.9) 07/20/17: MCV 92 fl (79-97) 07/20/17: MCH 31 pg (28-32) 07/20/17: MCHC 34 % (30-34) 07/20/17: RDW 15.2 % (13.2-15.2) 07/20/17 09: Plt Count 328 K/mm3 (140-440) 07/20/17: Lymph % (Auto) 16.2 % (13.4-35.0) 07/20/17: [place] % (Auto) 7.4 % (0.0-7.3) H 07/20/17 09: Eos % (Auto) 0.7 % (0.0-4.3) 07/20/17: Baso % (Auto) 0.2 % (0.0-1.8) 07/20/17: Lymph # 0.9 K/mm3 (1.2-5.4) L 07/20/17 09: [place] # 0.4 K/mm3 (0.0-0.8) 07/20/17:27 Eos # 0.0 K/mm3 (0.0-0.4) 07/20/17 09: Baso # 0.0 K/mm3 (0.0-0.1) 07/20/17 09: Seg Neutrophils % 75.5 % (40.0-70.0) H 07/20/17 09:27 Seg Neutrophils # 4.3 K/mm3 (1.8-7.7) 07/20/17 09: PT 12.2 Sec. (12.2-14.9) 07/20/17 09: INR 0.87 (0.87-1.13) 07/20/17 09: APTT 22.3 Sec. (24.2-36.6) L 07/20/17 09: Sodium 137 mmol/L (137-145) 07/20/17 09: Potassium 4.4 mmol/L (3.6-5.0) 07/20/17 09: Chloride 98.3 mmol/L (98-107) 07/20/17 09: Carbon Dioxide 23 mmol/L (22-30) 07/20/17 09: Anion Gap 20 mmol/L 07/20/17 09: BUN 18 mg/dL (7-17) H 07/20/17 09: Creatinine 0.5 mg/dL (0.7-1.2) L 07/20/17 09: Estimated GFR > 60 ml/min 07/20/17 09: BUN/Creatinine Ratio 36 % 07/20/17 09:27 Glucose 106 mg/dL (65-100) H 07/20/17 09: POC Glucose 125 (70-105) H 07/20/17 09:38 Lactic Acid 2.50 mmol/L (0.7-2.0) H* 07/20/17 09: Calcium 8.8 mg/dL (8.4-10.2) 07/20/17 09: Total Bilirubin 0.20 mg/dL (0.1-1.2) 07/20/17 09:27 AST 46 units/L (5-40) H 07/20/17 09:27 ALT 28 units/L (7-56) 07/20/17 09: Alkaline Phosphatase 101 units/L (35-129) 07/20/17 Ammonia 61.0 umol/L (25-60) H 07/20/17 Total Creatine Kinase 71 units/L (30-135) 07/20/17 Troponin T < 0.010 ng/mL (0.00-0.029) 07/20/17 Total Protein 7.2 g/dL (6.3-8.2) 07/20/17 Albumin 3.5 g/dL (3.9-5) L 07/20/17 Albumin/Globulin Ratio 0.9 % 07/20/17 TSH 0.929 mlU/mL (0.270-4.200) 07/20/17 Salicylates < 0.3 mg/dL (2.8-20.0) L 07/20/17 Acetaminophen < 15.0 ug/mL (10.0-30.0) 07/20/17 Plasma/Serum Alcohol < 0.01 % (0-0.07) 07/20/17 - Imaging and Cardiology Chest x-ray: image reviewed (no acute cardiopulmonary abnormaliries identified) CT Scan - head: report reviewed (no acute intracranial process identified) Assessment and Plan Assessment and plan: Altered mental status/ Comatose likely due to - Acute metabolic encephalopathy - Patient was known to be well last night, given her fluctuating glucose level hypoglycemia as a possibility - CT head no acute intracranial abnormality identified, MRI ordered - Neurology Dr. Joel consulted and said he will see as a consult (Per ER Doctor) Sepsis secondary to UTI - Patient is on IV antibiotic (zosyn), her urine culture from her previous admission was kapoor sensitive - Lactic acid level is high, patient is on IV fluid Brittle diabetes - Her blood sugars fluctuating - I'm going to put the patient on insulin, monitor Accu-Chek every 4 hours Acute respiratory failure - Patient was apneic for a while, and she is breathing well after that History of subdural hematoma Debility DVT prophylaxis - SCDs because of history of subdural hematoma, CVA Disposition - Admit to [facility] floor Cardiac status DO NOT RESUSCITATE and DO NOT INTUBATE ( I have confirmed with her son) Advance Directives: Yes (DNR/DNI) VTE prophylaxis?: Mechanical Contraindication Mechanical VTE Prophylaxis: Contraindicated Reason for no VTE Prophylaxis: Medical contraindication Plan of care discussed with patient/family: Yes
[2017-07-20 12:33] LABS: Bacteria,Urine 1+ /HPF (Negative); Bilirubin,Urine NEG (Negative); Blood,Urine SM (Negative); Color,Urine Yellow (Yellow); Nitrite,Urine NEG (Negative); Urobilinogen,Urine < 2.0 mg/dL (<2.0)
[2017-07-20] MEDS ORDERED: ROCEPHIN/NS 1 GM/50 ML 1 GM/50 ML BAG IV ONE (12:49)
[2017-07-20] MEDS ORDERED: D50W (25GM) Syringe IV ONE (13:33)
[2017-07-20] MEDS ORDERED: CEPHULAC PR ONE (14:00)
[2017-07-20] MEDS: ZOSYN/NS 3.375GM/50ML 3.375 GM/50 ML BAG IV SCH ×2 (15:26→23:01)
[2017-07-20] MEDS: NACL 0.9% 1000 ML 1,000 ML IV SCH (15:32)
[2017-07-20] MEDS: D50W (25GM) Syringe IV PRN ×3 (16:20→21:10)
[2017-07-20] MEDS: D5/0.45NS 1,000 ML IV SCH (16:27)
[2017-07-20] MEDS ORDERED: cefTRIAXone 1 GM in NACL 0.9% 20 ML IV ONE (18:30)
[2017-07-21] MEDS: NOVOLOG SUB-Q SCH ×2 (00:16→06:31)
[2017-07-21] MEDS: D5/0.45NS 1,000 ML IV SCH (04:10)
[2017-07-21 05:56] LABS: Basophils % (Auto) 0.7 % (0.0-1.8); Eosinophils # (Auto) 0.2 K/mm3 (0.0-0.4); Eosinophils % (Auto) 3.1 % (0.0-4.3); Hematocrit 32.8 % (30.3-42.9); Lymphocytes # (Auto) 0.9 K/mm3 (1.2-5.4); Mean Corpuscular HGB Conc 33 % (30-34); Mean Corpuscular Hemoglobin 31 pg (28-32); Mean Corpuscular Volume 92 fl (79-97); Monocytes # (Auto) 0.5 K/mm3 (0.0-0.8); Monocytes % (Auto) 8.5 % (0.0-7.3); Platelet Count 309 K/mm3 (140-440); Red Blood Count 3.58 M/mm3 (3.65-5.03)
[2017-07-21 06:20] LABS: BUN/Creatinine Ratio 13; Blood Urea Nitrogen 8 mg/dL (7-17); Calcium 8.6 mg/dL (8.4-10.2); Hemolysis Index 7
[2017-07-21] MEDS: ZOSYN/NS 3.375GM/50ML 3.375 GM/50 ML BAG IV SCH ×3 (06:31→23:05)
[2017-07-21] MEDS ORDERED: PANCREAZE DR 10,500 UNIT FEEDTUBE PRN (11:44)
[2017-07-21] MEDS ORDERED: SODIUM BICARBONATE FEEDTUBE PRN (11:44)
[2017-07-21] MEDS ORDERED: SIMPLE SYRUP FEEDTUBE PRN ×2 (11:44)
--- NOTE | 2017-07-21 15:23 | Progress Note ---
<FELIPE CASPER - Last Filed: 07/21/17 15:30> Assessment and Plan Assessment and plan: 86-year-old [place] female with past medical history significant for diabetes mellitus, DKA, UTI, subdural hematoma 2, debility, G-tube feedings brought to the emergency department for the complaints of altered mental status. Altered mental status - No longer comatosed, Acute metabolic encephalopathy - fluctuating glucose level hypoglycemia as a possibility - CT head no acute intracranial abnormality identified, MRI ordered - Neurology Dr. Joel consulted and said he will see as a consult (Per ER Doctor) Sepsis secondary to UTI - Patient is on IV antibiotic (zosyn), her urine culture from her previous admission was kapoor sensitive - Lactic acid level is high, patient is on IV fluid, continue Brittle diabetes - Her blood sugars fluctuating, dc'd insulin therapy for now, will treat hyperglycemia PRN - Accu-Chek every 4 hours Acute respiratory failure - Improved now 07/21, 99-100% on room air - Patient was apneic for a while, and she is breathing well after that History of subdural hematoma Debility patient started on tube feeding DVT prophylaxis - SCDs because of history of subdural hematoma, CVA Cardiac status DO NOT RESUSCITATE and DO NOT INTUBATE (confirmed by Dr Paez with her son) History Interval history: Patient seen and examined. She is very confused today. She appears to be in no acute distress. Labs and nursing notes reviewed. Hospitalist Physical - Constitutional Vitals: Temp Pulse Resp BP Pulse Ox 98.8 F 87 18 163/64 99 07/21/17 12:56 07/21/17 12:56 07/21/17 12:56 07/21/17 12:56 07/21/17 12:56 General appearance: Present: no acute distress, well-nourished - EENT Eyes: Present: PERRL, EOM intact ENT: hearing intact, clear oral mucosa - Neck Neck: Present: supple, normal ROM - Respiratory Respiratory effort: normal Respiratory: bilateral: CTA - Cardiovascular Rhythm: regular Heart Sounds: Present: S1 & S2 - Extremities Extremities: no ischemia, No edema - Abdominal General gastrointestinal: soft, non-tender, non-distended - Integumentary Integumentary: Present: clear, warm, dry - Psychiatric Psychiatric: appropriate mood/affect, cooperative - Neurologic Neurologic: no focal deficits (. I'll), moves all extremities - Allied Health Allied health notes reviewed: nursing Results - Labs CBC & Chem 7: 07/21/17 05:30 07/21/17 05:30 Labs: Laboratory Last Values WBC 5.5 K/mm3 (4.5-11.0) 07/21/17 05:30 RBC 3.58 M/mm3 (3.65-5.03) L 07/21/17 05:30 Hgb 11.0 gm/dl (10.1-14.3) 07/21/17 05:30 Hct 32.8 % (30.3-42.9) 07/21/17 05:30 MCV 92 fl (79-97) 07/21/17 05:30 MCH 31 pg (28-32) 07/21/17 05:30 MCHC 33 % (30-34) 07/21/17 05:30 RDW 15.0 % (13.2-15.2) 07/21/17 05:30 Plt Count 309 K/mm3 (140-440) 07/21/17 05:30 Lymph % (Auto) 16.0 % (13.4-35.0) 07/21/17 05:30 [place] % (Auto) 8.5 % (0.0-7.3) H 07/21/17 05:30 Eos % (Auto) 3.1 % (0.0-4.3) 07/21/17 05:30 Baso % (Auto) 0.7 % (0.0-1.8) 07/21/17 05:30 Lymph # 0.9 K/mm3 (1.2-5.4) L 07/21/17 05:30 [place] # 0.5 K/mm3 (0.0-0.8) 07/21/17 05:30 Eos # 0.2 K/mm3 (0.0-0.4) 07/21/17 05:30 Baso # 0.0 K/mm3 (0.0-0.1) 07/21/17 05:30 Seg Neutrophils % 71.7 % (40.0-70.0) H 07/21/17 05:30 Seg Neutrophils # 3.9 K/mm3 (1.8-7.7) 07/21/17 05:30 PT 12.2 Sec. (12.2-14.9) 07/20/17 09:27 INR 0.87 (0.87-1.13) 07/20/17 09:27 APTT 22.3 Sec. (24.2-36.6) L 07/20/17 09:27 Sodium 137 mmol/L (137-145) 07/21/17 05:30 Potassium 4.4 mmol/L (3.6-5.0) 07/21/17 05:30 Chloride 100.6 mmol/L (98-107) 07/21/17 05:30 Carbon Dioxide 25 mmol/L (22-30) 07/21/17 05:30 Anion Gap 16 mmol/L 07/21/17 05:30 BUN 8 mg/dL (7-17) 07/21/17 05:30 Creatinine 0.6 mg/dL (0.7-1.2) L 07/21/17 05:30 Estimated GFR > 60 ml/min 07/21/17 05:30 BUN/Creatinine Ratio 13 % 07/21/17 05:30 Glucose 98 mg/dL (65-100) 07/21/17 05:30 POC Glucose 161 (70-105) H 07/21/17 13:49 Lactic Acid 3.50 mmol/L (0.7-2.0) H* 07/21/17 05:30 Calcium 8.6 mg/dL (8.4-10.2) 07/21/17 05:30 Total Bilirubin 0.20 mg/dL (0.1-1.2) 07/20/17 09:27 AST 46 units/L (5-40) H 07/20/17 09:27 ALT 28 units/L (7-56) 07/20/17 09:27 Alkaline Phosphatase 101 units/L (35-129) 07/20/17 09:27 Ammonia 61.0 umol/L (25-60) H 07/20/17 09:27 Total Creatine Kinase 71 units/L (30-135) 07/20/17 09:27 Troponin T < 0.010 ng/mL (0.00-0.029) 07/20/17 09:27 Total Protein 7.2 g/dL (6.3-8.2) 07/20/17 09:27 Albumin 3.5 g/dL (3.9-5) L 07/20/17 09:27 Albumin/Globulin Ratio 0.9 % 07/20/17 09:27 TSH 0.929 mlU/mL (0.270-4.200) 07/20/17 09:27 Urine Color Yellow (Yellow) 07/20/17 12:03 Urine Turbidity Clear (Clear) 07/20/17 12:03 Urine pH 8.0 (5.0-7.0) H 07/20/17 12:03 Ur Specific [place] 1.011 (1.003-1.030) 07/20/17 12:03 Urine Protein 30 mg/dl mg/dL (Negative) 07/20/17 12:03 Urine Glucose (UA) 150 mg/dL (Negative) 07/20/17 12:03 Urine Ketones Neg mg/dL (Negative) 07/20/17 12:03 Urine Blood Sm (Negative) 07/20/17 12:03 Urine Nitrite Neg (Negative) 07/20/17 12:03 Urine Bilirubin Neg (Negative) 07/20/17 12:03 Urine Urobilinogen < 2.0 mg/dL (<2.0) 07/20/17 12:03 Ur Leukocyte Esterase Lg (Negative) 07/20/17 12:03 Urine WBC (Auto) 105.0 /HPF (0.0-6.0) H 07/20/17 12:03 Urine RBC (Auto) 2.0 /HPF (0.0-6.0) 07/20/17 12:03 U Epithel Cells (Auto) 1.0 /HPF (0-13.0) 07/20/17 12:03 Urine Bacteria (Auto) 1+ /HPF (Negative) 07/20/17 12:03 Salicylates < 0.3 mg/dL (2.8-20.0) L 07/20/17 09: Acetaminophen < 15.0 ug/mL (10.0-30.0) 07/20/17 09: Plasma/Serum Alcohol < 0.01 % (0-0.07) 07/20/17 09:27 <NOHEMI HERNANDEZ R - Last Filed: 07/22/17 08:22> Assessment and Plan Assessment and plan: I saw and evaluated the patient on 07/21/17. I agree with the findings and the plan of care as documented in the Nurse Practitioner's~note. I discussed the plan of care with pt's son dr Donovan. will hold insulin therapy , cont D5NS, start TF. treat hyperglycemia if BG >200 as needed with short acting insulin. History Interval history: The patient had multiple hypoglycemic events yesterday Remained confused Hospitalist Physical - Constitutional Vitals: Temp Pulse Resp BP Pulse Ox 98.4 F 90 17 161/74 99 07/21/17 21:24 07/21/17 21:24 07/22/17 03:00 07/21/17 21:24 07/21/17 21:24 - Psychiatric Psychiatric: other (not oriented to self, place or time) Results - Labs CBC & Chem 7: 07/21/17 05:30 07/21/17 05:30 Labs: Laboratory Last Values WBC 5.5 K/mm3 (4.5-11.0) 07/21/17 05:30 RBC 3.58 M/mm3 (3.65-5.03) L 07/21/17 05:30 Hgb 11.0 gm/dl (10.1-14.3) 07/21/17 05:30 Hct 32.8 % (30.3-42.9) 07/21/17 05:30 MCV 92 fl (79-97) 07/21/17 05:30 MCH 31 pg (28-32) 07/21/17 05:30 MCHC 33 % (30-34) 07/21/17 05:30 RDW 15.0 % (13.2-15.2) 07/21/17 05:30 Plt Count 309 K/mm3 (140-440) 07/21/17 05:30 Lymph % (Auto) 16.0 % (13.4-35.0) 07/21/17 05:30 [place] % (Auto) 8.5 % (0.0-7.3) H 07/21/17 05:30 Eos % (Auto) 3.1 % (0.0-4.3) 07/21/17 05:30 Baso % (Auto) 0.7 % (0.0-1.8) 07/21/17 05:30 Lymph # 0.9 K/mm3 (1.2-5.4) L 07/21/17 05:30 [place] # 0.5 K/mm3 (0.0-0.8) 07/21/17 05:30 Eos # 0.2 K/mm3 (0.0-0.4) 07/21/17 05:30 Baso # 0.0 K/mm3 (0.0-0.1) 07/21/17 05:30 Seg Neutrophils % 71.7 % (40.0-70.0) H 07/21/17 05:30 Seg Neutrophils # 3.9 K/mm3 (1.8-7.7) 07/21/17 05:30 PT 12.2 Sec. (12.2-14.9) 07/20/17 09:27 INR 0.87 (0.87-1.13) 07/20/17 09:27 APTT 22.3 Sec. (24.2-36.6) L 07/20/17 09:27 Sodium 137 mmol/L (137-145) 07/21/17 05:30 Potassium 4.4 mmol/L (3.6-5.0) 07/21/17 05:30 Chloride 100.6 mmol/L (98-107) 07/21/17 05:30 Carbon Dioxide 25 mmol/L (22-30) 07/21/17 05:30 Anion Gap 16 mmol/L 07/21/17 05:30 BUN 8 mg/dL (7-17) 07/21/17 05:30 Creatinine 0.6 mg/dL (0.7-1.2) L 07/21/17 05:30 Estimated GFR > 60 ml/min 07/21/17 05:30 BUN/Creatinine Ratio 13 % 07/21/17 05:30 Glucose 98 mg/dL (65-100) 07/21/17 05:30 POC Glucose 342 (70-105) H 07/22/17 07:26 Lactic Acid 3.50 mmol/L (0.7-2.0) H* 07/21/17 05:30 Calcium 8.6 mg/dL (8.4-10.2) 07/21/17 05:30 Total Bilirubin 0.20 mg/dL (0.1-1.2) 07/20/17 09:27 AST 46 units/L (5-40) H 07/20/17 09:27 ALT 28 units/L (7-56) 07/20/17 09: Alkaline Phosphatase 101 units/L (35-129) 07/20/17 09: Ammonia 61.0 umol/L (25-60) H 07/20/17 09: Total Creatine Kinase 71 units/L (30-135) 07/20/17 09: Troponin T < 0.010 ng/mL (0.00-0.029) 07/20/17: Total Protein 7.2 g/dL (6.3-8.2) 07/20/17: Albumin 3.5 g/dL (3.9-5) L 07/20/17: Albumin/Globulin Ratio 0.9 % 07/20/17: TSH 0.929 mlU/mL (0.270-4.200) 07/20/17: Urine Color Yellow (Yellow) 07/20/17 12:03 Urine Turbidity Clear (Clear) 07/20/17 12:03 Urine pH 8.0 (5.0-7.0) H 07/20/17 12:03 Ur Specific [place] 1.011 (1.003-1.030) 07/20/17 12:03 Urine Protein 30 mg/dl mg/dL (Negative) 07/20/17 12:03 Urine Glucose (UA) 150 mg/dL (Negative) 07/20/17 12:03 Urine Ketones Neg mg/dL (Negative) 07/20/17 12:03 Urine Blood Sm (Negative) 07/20/17 12:03 Urine Nitrite Neg (Negative) 07/20/17 12:03 Urine Bilirubin Neg (Negative) 07/20/17 12:03 Urine Urobilinogen < 2.0 mg/dL (<2.0) 07/20/17 12:03 Ur Leukocyte Esterase Lg (Negative) 07/20/17 12:03 Urine WBC (Auto) 105.0 /HPF (0.0-6.0) H 07/20/17 12:03 Urine RBC (Auto) 2.0 /HPF (0.0-6.0) 07/20/17 12:03 U Epithel Cells (Auto) 1.0 /HPF (0-13.0) 07/20/17 12:03 Urine Bacteria (Auto) 1+ /HPF (Negative) 07/20/17 12:03 Salicylates < 0.3 mg/dL (2.8-20.0) L 07/20/17 09:27 Acetaminophen < 15.0 ug/mL (10.0-30.0) 07/20/17 09:27 Plasma/Serum Alcohol < 0.01 % (0-0.07) 07/20/17 09:27
[2017-07-22] MEDS: ZOSYN/NS 3.375GM/50ML 3.375 GM/50 ML BAG IV SCH ×3 (07:41→22:40)
[2017-07-22] MEDS ORDERED: LEVEMIR SUB-Q ONE (10:30)
[2017-07-22] MEDS: NACL 0.9% 1000 ML 1,000 ML IV SCH ×2 (12:04→22:41)
[2017-07-22] MEDS ORDERED: SODIUM BICARBONATE FEEDTUBE PRN (12:36)
[2017-07-22] MEDS ORDERED: SIMPLE SYRUP FEEDTUBE PRN ×2 (12:36)
[2017-07-22] MEDS ORDERED: PANCREAZE DR 10,500 UNIT FEEDTUBE PRN (12:36)
--- NOTE | 2017-07-22 14:58 | Progress Note ---
<FELIPE CASPER - Last Filed: 07/22/17 14:54> Assessment and Plan Assessment and plan: 86-year-old Citizen Of [place] female with past medical history significant for diabetes mellitus, DKA, UTI, subdural hematoma 2, debility, G-tube feedings brought to the emergency department for the complaints of altered mental status. Altered mental status - No longer comatosed, Acute metabolic encephalopathy - fluctuating glucose level hypoglycemia as a possibility - CT head no acute intracranial abnormality identified, MRI ordered - Neurology Dr. Joel consulted and said he will see as a consult (Per ER Doctor) Sepsis secondary to UTI - Patient is on IV antibiotic (zosyn), her urine culture from her previous admission was kapoor sensitive - Lactic acid level is high, patient is on IV fluid, continue Brittle diabetes - Her blood sugars fluctuating, dc'd insulin therapy for now, will treat continue to treat hyperglycemia >200 with short acting insulin - Accu-Chek every 4 hours Acute respiratory failure - Improved now 07/21, 99-100% on room air - Patient was apneic for a while, and she is breathing well after that History of subdural hematoma Debility patient started on tube feeding, fender finisher consultation DVT prophylaxis - SCDs because of history of subdural hematoma, CVA Cardiac status DO NOT RESUSCITATE and DO NOT INTUBATE (confirmed by Dr Paez with her son) History Interval history: Patient seen and examined. She is still confused today. She appears to be in no acute distress. Labs and nursing notes reviewed. Hospitalist Physical - Constitutional Vitals: Temp Pulse Resp BP Pulse Ox 97.5 F L 84 18 143/62 87 07/22/17 07:18 07/22/17 14:08 07/22/17 07:18 07/22/17 07:18 07/22/17 14:08 General appearance: Present: no acute distress, cachectic - EENT Eyes: Present: PERRL, EOM intact ENT: hearing intact, clear oral mucosa, poor dentition - Neck Neck: Present: supple, normal ROM - Respiratory Respiratory effort: normal Respiratory: bilateral: CTA - Cardiovascular Rhythm: regular Heart Sounds: Present: S1 & S2 - Extremities Extremities: no ischemia, No edema - Abdominal General gastrointestinal: soft, non-tender, non-distended - Integumentary Integumentary: Present: clear, warm, dry - Psychiatric Psychiatric: appropriate mood/affect, cooperative - Neurologic Neurologic: CNII-XII intact, moves all extremities - Allied Health Allied health notes reviewed: nursing Results - Labs CBC & Chem 7: 07/21/17 05:30 07/21/17 05:30 Labs: Laboratory Last Values WBC 5.5 K/mm3 (4.5-11.0) 07/21/17 05:30 RBC 3.58 M/mm3 (3.65-5.03) L 07/21/17 05:30 Hgb 11.0 gm/dl (10.1-14.3) 07/21/17 05:30 Hct 32.8 % (30.3-42.9) 07/21/17 05:30 MCV 92 fl (79-97) 07/21/17 05:30 MCH 31 pg (28-32) 07/21/17 05:30 MCHC 33 % (30-34) 07/21/17 05:30 RDW 15.0 % (13.2-15.2) 07/21/17 05:30 Plt Count 309 K/mm3 (140-440) 07/21/17 05:30 Lymph % (Auto) 16.0 % (13.4-35.0) 07/21/17 05:30 [place] % (Auto) 8.5 % (0.0-7.3) H 07/21/17 05:30 Eos % (Auto) 3.1 % (0.0-4.3) 07/21/17 05:30 Baso % (Auto) 0.7 % (0.0-1.8) 07/21/17 05:30 Lymph # 0.9 K/mm3 (1.2-5.4) L 07/21/17 05:30 [place] # 0.5 K/mm3 (0.0-0.8) 07/21/17 05:30 Eos # 0.2 K/mm3 (0.0-0.4) 07/21/17 05:30 Baso # 0.0 K/mm3 (0.0-0.1) 07/21/17 05:30 Seg Neutrophils % 71.7 % (40.0-70.0) H 07/21/17 05:30 Seg Neutrophils # 3.9 K/mm3 (1.8-7.7) 07/21/17 05:30 PT 12.2 Sec. (12.2-14.9) 07/20/17 09:27 INR 0.87 (0.87-1.13) 07/20/17 09:27 APTT 22.3 Sec. (24.2-36.6) L 07/20/17 09:27 Sodium 137 mmol/L (137-145) 07/21/17 05:30 Potassium 4.4 mmol/L (3.6-5.0) 07/21/17 05:30 Chloride 100.6 mmol/L (98-107) 07/21/17 05:30 Carbon Dioxide 25 mmol/L (22-30) 07/21/17 05:30 Anion Gap 16 mmol/L 07/21/17 05:30 BUN 8 mg/dL (7-17) 07/21/17 05:30 Creatinine 0.6 mg/dL (0.7-1.2) L 07/21/17 05:30 Estimated GFR > 60 ml/min 07/21/17 05:30 BUN/Creatinine Ratio 13 % 07/21/17 05:30 Glucose 98 mg/dL (65-100) 07/21/17 05:30 POC Glucose 272 (70-105) H 07/22/17 13:49 Lactic Acid 3.50 mmol/L (0.7-2.0) H* 07/21/17 05:30 Calcium 8.6 mg/dL (8.4-10.2) 07/21/17 05:30 Total Bilirubin 0.20 mg/dL (0.1-1.2) 07/20/17 09:27 AST 46 units/L (5-40) H 07/20/17 09:27 ALT 28 units/L (7-56) 07/20/17 09:27 Alkaline Phosphatase 101 units/L (35-129) 07/20/17 09:27 Ammonia 61.0 umol/L (25-60) H 07/20/17 09:27 Total Creatine Kinase 71 units/L (30-135) 07/20/17 09:27 Troponin T < 0.010 ng/mL (0.00-0.029) 07/20/17 09:27 Total Protein 7.2 g/dL (6.3-8.2) 07/20/17 09:27 Albumin 3.5 g/dL (3.9-5) L 07/20/17 09:27 Albumin/Globulin Ratio 0.9 % 07/20/17 09: TSH 0.929 mlU/mL (0.270-4.200) 07/20/17 09:27 Urine Color Yellow (Yellow) 07/20/17 12:03 Urine Turbidity Clear (Clear) 07/20/17 12:03 Urine pH 8.0 (5.0-7.0) H 07/20/17 12:03 Ur Specific [place] 1.011 (1.003-1.030) 07/20/17 12:03 Urine Protein 30 mg/dl mg/dL (Negative) 07/20/17 12:03 Urine Glucose (UA) 150 mg/dL (Negative) 07/20/17 12:03 Urine Ketones Neg mg/dL (Negative) 07/20/17 12:03 Urine Blood Sm (Negative) 07/20/17 12:03 Urine Nitrite Neg (Negative) 07/20/17 12:03 Urine Bilirubin Neg (Negative) 07/20/17 12:03 Urine Urobilinogen < 2.0 mg/dL (<2.0) 07/20/17 12:03 Ur Leukocyte Esterase Lg (Negative) 07/20/17 12:03 Urine WBC (Auto) 105.0 /HPF (0.0-6.0) H 07/20/17 12:03 Urine RBC (Auto) 2.0 /HPF (0.0-6.0) 07/20/17 12:03 U Epithel Cells (Auto) 1.0 /HPF (0-13.0) 07/20/17 12:03 Urine Bacteria (Auto) 1+ /HPF (Negative) 07/20/17 12:03 Salicylates < 0.3 mg/dL (2.8-20.0) L 07/20/17 09: Acetaminophen < 15.0 ug/mL (10.0-30.0) 07/20/17 09: Plasma/Serum Alcohol < 0.01 % (0-0.07) 07/20/17 09:27 <NOHEMI HERNANDEZ R - Last Filed: 07/22/17 20:55> Assessment and Plan Assessment and plan: I saw and evaluated the patient. I agree with the findings and the plan of care as documented in the Nurse Practitioner's~note, with the following corrections and additions. Patient was seen by neurologist today. Started back on keppra. Tolerating TF. Initiated subqu insulin, goal to keep BG 160-180 range. Will also add detemir 5units at bedtime. Hospitalist Physical - Constitutional Vitals: Temp Pulse Resp BP Pulse Ox 97.5 F L 84 18 143/62 87 07/22/17 07:18 07/22/17 14:08 07/22/17 07:18 07/22/17 07:18 07/22/17 14:08 Results - Labs CBC & Chem 7: 07/21/17 05:30 07/21/17 05:30 Labs: Laboratory Last Values WBC 5.5 K/mm3 (4.5-11.0) 07/21/17 05:30 RBC 3.58 M/mm3 (3.65-5.03) L 07/21/17 05:30 Hgb 11.0 gm/dl (10.1-14.3) 07/21/17 05:30 Hct 32.8 % (30.3-42.9) 07/21/17 05:30 MCV 92 fl (79-97) 07/21/17 05:30 MCH 31 pg (28-32) 07/21/17 05:30 MCHC 33 % (30-34) 07/21/17 05:30 RDW 15.0 % (13.2-15.2) 07/21/17 05:30 Plt Count 309 K/mm3 (140-440) 07/21/17 05:30 Lymph % (Auto) 16.0 % (13.4-35.0) 07/21/17 05:30 Camp % (Auto) 8.5 % (0.0-7.3) H 07/21/17 05:30 Eos % (Auto) 3.1 % (0.0-4.3) 07/21/17 05:30 Baso % (Auto) 0.7 % (0.0-1.8) 07/21/17 05:30 Lymph # 0.9 K/mm3 (1.2-5.4) L 07/21/17 05:30 [place] # 0.5 K/mm3 (0.0-0.8) 07/21/17 05:30 Eos # 0.2 K/mm3 (0.0-0.4) 07/21/17 05:30 Baso # 0.0 K/mm3 (0.0-0.1) 07/21/17 05:30 Seg Neutrophils % 71.7 % (40.0-70.0) H 07/21/17 05:30 Seg Neutrophils # 3.9 K/mm3 (1.8-7.7) 07/21/17 05:30 PT 12.2 Sec. (12.2-14.9) 07/20/17 09:27 INR 0.87 (0.87-1.13) 07/20/17 09:27 APTT 22.3 Sec. (24.2-36.6) L 07/20/17 09:27 Sodium 137 mmol/L (137-145) 07/21/17 05:30 Potassium 4.4 mmol/L (3.6-5.0) 07/21/17 05:30 Chloride 100.6 mmol/L (98-107) 07/21/17 05:30 Carbon Dioxide 25 mmol/L (22-30) 07/21/17 05:30 Anion Gap 16 mmol/L 07/21/17 05:30 BUN 8 mg/dL (7-17) 07/21/17 05:30 Creatinine 0.6 mg/dL (0.7-1.2) L 07/21/17 05:30 Estimated GFR > 60 ml/min 07/21/17 05:30 BUN/Creatinine Ratio 13 % 07/21/17 05:30 Glucose 98 mg/dL (65-100) 07/21/17 05:30 POC Glucose 350 (70-105) H 07/22/17 18:01 Lactic Acid 3.50 mmol/L (0.7-2.0) H* 07/21/17 05:30 Calcium 8.6 mg/dL (8.4-10.2) 07/21/17 05:30 Total Bilirubin 0.20 mg/dL (0.1-1.2) 07/20/17 09:27 AST 46 units/L (5-40) H 07/20/17 09:27 ALT 28 units/L (7-56) 07/20/17 09:27 Alkaline Phosphatase 101 units/L (35-129) 07/20/17 09: Ammonia 61.0 umol/L (25-60) H 07/20/17 09:27 Total Creatine Kinase 71 units/L (30-135) 07/20/17 09:27 Troponin T < 0.010 ng/mL (0.00-0.029) 07/20/17 09:27 Total Protein 7.2 g/dL (6.3-8.2) 07/20/17 09: Albumin 3.5 g/dL (3.9-5) L 07/20/17 09: Albumin/Globulin Ratio 0.9 % 07/20/17 09: Vitamin B12 1118 pg/mL (211-911) H 07/22/17 14:10 Folate > 20 ng/mL (7.3-26.0) 07/22/17 14:10 TSH 0.929 mlU/mL (0.270-4.200) 07/20/17 09: Free T4 1.05 ng/dL (0.76-1.46) 07/22/17 14:10 Urine Color Yellow (Yellow) 07/20/17 12:03 Urine Turbidity Clear (Clear) 07/20/17 12:03 Urine pH 8.0 (5.0-7.0) H 07/20/17 12:03 Ur Specific [place] 1.011 (1.003-1.030) 07/20/17 12:03 Urine Protein 30 mg/dl mg/dL (Negative) 07/20/17 12:03 Urine Glucose (UA) 150 mg/dL (Negative) 07/20/17 12:03 Urine Ketones Neg mg/dL (Negative) 07/20/17 12:03 Urine Blood Sm (Negative) 07/20/17 12:03 Urine Nitrite Neg (Negative) 07/20/17 12:03 Urine Bilirubin Neg (Negative) 07/20/17 12:03 Urine Urobilinogen < 2.0 mg/dL (<2.0) 07/20/17 12:03 Ur Leukocyte Esterase Lg (Negative) 07/20/17 12:03 Urine WBC (Auto) 105.0 /HPF (0.0-6.0) H 07/20/17 12:03 Urine RBC (Auto) 2.0 /HPF (0.0-6.0) 07/20/17 12:03 U Epithel Cells (Auto) 1.0 /HPF (0-13.0) 07/20/17 12:03 Urine Bacteria (Auto) 1+ /HPF (Negative) 07/20/17 12:03 Salicylates < 0.3 mg/dL (2.8-20.0) L 07/20/17 09:27 Acetaminophen < 15.0 ug/mL (10.0-30.0) 07/20/17 09:27 Plasma/Serum Alcohol < 0.01 % (0-0.07) 07/20/17 09:27
[2017-07-22] MEDS: KEPPRA PO SCH ×2 (18:12→22:41)
--- NOTE | 2017-07-22 18:46 | Consultation ---
History of Present Illness Consult date: 07/22/17 Requesting physician: NOHEMI HERNANDEZ Reason for Consult: altered mental status Chief complaint: altered mental status History of present illness: This 86-year-old left-handed [place] female, whose son or son-in-law is a GI physician here, had apparently a mistake made according to him in her types of insulin leading to low insulin such that it was undetectable though grandson stated was 29 or lower 2 days ago and was admitted. She was completely unresponsive at the time of admission but has improved though not back to her baseline according to Dr. Donovan (her son or son-in-law). She had a craniotomy for right-sided frontal subdural hematoma about 12 months ago he states and has been weak on her left side since then. According to Dr. 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 Has not been able to walk since an episode of DKA, except at rehabilitation with physical therapy. Past History Past Medical History: diabetes, other (subdural hematoma right frontal). denies : stroke Past Surgical History: Other (intracranial hemorrhage evacuation, G-tube placement) Social history: AND/DNR-allow natural . denies: smoking, alcohol abuse, prescription drug abuse, IV drug use Family history: diabetes, other (no epilepsy) Medications and Allergies Allergies Allergy/AdvReac Type Severity Reaction Status Date / Time heparin AdvReac Bleeding Verified 05/20/17 18:51 Home Medications Medication Instructions Recorded Confirmed Last Taken Type amLODIPine [Norvasc] 5 mg PO DAILY 05/20/17 07/20/17 1 Day Ago History ~05/31/17 Insulin Degludec [Tresiba 35 unit SQ DAILY 06/01/17 07/20/17 1 Day Ago History Flextouch U-100] ~05/31/17 Insulin Aspart [NovoLOG Flexpen] 0 units SQ AC 07/20/17 07/20/17 Unknown History Linagliptin [Tradjenta] 5 mg PO QDAY 07/20/17 07/20/17 Unknown History Active Meds: Active Medications Lipase/Protease/Amylase (Ghada Velazco 10,500 Unit) 1 each FEEDTUBE PRN PRN PRN Reason: For Clogged Feeding Tube Dextrose (D50w (25gm) Syringe) 25 ml IV PRN PRN PRN Reason: Hypoglycemia Last Admin: 07/20/17 21:10 Dose: 25 ml Piperacillin Sod/Tazobactam Sod (Zosyn/Ns 3.375gm/50ml) 3.375 gm in 50 mls @ 100 mls/hr IV Q8H DENNIS PRN Reason: Protocol Last Admin: 07/22/17 14:09 Dose: 100 mls/hr Sodium Chloride (Nacl 0.9% 1000 Ml) 1,000 mls @ 100 mls/hr IV DIRECT COUNTS INCLUDE 234 BEDS AT THE [facility] Last Admin: 07/22/17 12:04 Dose: 100 mls/hr Insulin Human Regular (Novolin R) 0 units SUB-Q Q4HR DENNIS PRN Reason: Protocol Last Admin: 07/22/17 18:26 Dose: 4 units Levetiracetam (Keppra) 500 mg PO BID COUNTS INCLUDE 234 BEDS AT THE [facility] Last Admin: 07/22/17 18:12 Dose: 500 mg Simple Syrup (Simple Syrup) 15 ml FEEDTUBE PRN PRN PRN Reason: Hypoglycemia Simple Syrup (Simple Syrup) 30 ml FEEDTUBE PRN PRN PRN Reason: Hypoglycemia Sodium Bicarbonate (Sodium Bicarbonate) 325 mg FEEDTUBE PRN PRN PRN Reason: For Clogged Feeding Tube Review of Systems All systems: negative Constitutional: other (knowledge is lightheadedness when questioned via her grandson. Otherwise could not obtain, seems to deny headaches) Physical Examination - Vital Signs Vital Signs: Vital Signs Temp Pulse Resp BP Pulse Ox 98.9 F 93 H 24 177/83 92 07/20/17 08:59 07/20/17 08:59 07/20/17 08:59 07/20/17 08:59 07/20/17 08:59 - Physical Exam Narrative exam: General Appearance: well developed but thin (per BMI) mid 80s [place] female in [facility] was seen with her grandson and at times by phone Dr. Donovan. HEENT: Right frontal craniotomy incision scar, normocephalic; no bruits, 2+ Tiffanie without soreness or induration or enlargement, sclerae nonicteric. Oropharynx pink and moist. Neck: supple, no bruits. Heart: no murmur or extra sounds. Extremities: no clubbing, cyanosis or edema. 2+ dorsalis pedis pulses bilaterally. Neurologic Exam: Mental Status: Awake, alert, not oriented even at her baseline, speech is echolalic at times but grandson seems to think it is clear and mostly clear and Uz[place], cannot name pen or comb but starts stroking her hair when I ask her to name the comb, cannot do abstractions. 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 Cranial Nerves: sanchez full grossly, no papilledema, SVPs present, PERRL, EOMs full without nystagmus, facial sensation intact to pinprick, poor facial grimace bilaterally, Wiley cannot be assessed, gags are positive, shoulder shrug is 5 X 2, tongue will not protrude to command. Cerebellar: finger to nose intact right but apraxic on the left, cannot do heel to lawson. Sensory: intact to pinprick but cannot do other testing. Motor Exam Upper Extremities: Moderate left drift, Fred cannot be tested. Brim Flexer are 5 right and 3+ to 4- on the left, tone is normal. No atrophy or fasciculations are noted visually. Motor Exam Lower Extremities: Poor cooperation, bends right knee better than left, pedal push is 4+ right and 4- left, Fred cannot be tested. Tone is normal. No atrophy or fasciculations are noted visually. Reflexes: Palmomental is positive bilaterally, snout and jaw jerk are negative. Triceps, biceps and brachioradialis are trace bilaterally. Rosette's is negative bilaterally. Knee jerks and ankle jerks are 0 bilaterally without clonus. Toes are downgoing bilaterally to Babinski testing. Results - Laboratory Findings CBC and BMP: 07/21/17 05:30 07/21/17 05:30 Abnormal Lab Findings: Abnormal Labs 07/20/17 07/20/17 07/20/17 09:27 09:27 09:27 RBC Evans % (Auto) 7.4 H Lymph # 0.9 L Seg Neutrophils % 75.5 H APTT BUN 18 H Creatinine 0.5 L Glucose 106 H POC Glucose Lactic Acid 2.50 H* AST 46 H Ammonia Albumin 3.5 L Vitamin B12 Urine pH Urine WBC (Auto) Salicylates 07/20/17 07/20/17 07/20/17 09:27 09:27 09:27 RBC Evans % (Auto) Lymph # Seg Neutrophils % APTT 22.3 L BUN Creatinine Glucose POC Glucose Lactic Acid AST Ammonia 61.0 H Albumin Vitamin B12 Urine pH Urine WBC (Auto) Salicylates < 0.3 L 07/20/17 07/20/17 07/20/17 09:38 12:03 13:35 RBC Evans % (Auto) Lymph # Seg Neutrophils % APTT BUN Creatinine Glucose POC Glucose 125 H < 40 L Lactic Acid AST Ammonia Albumin Vitamin B12 Urine pH 8.0 H Urine WBC (Auto) 105.0 H Salicylates 07/20/17 07/20/17 07/20/17 13:48 13:51 15:59 RBC Evans % (Auto) Lymph # Seg Neutrophils % APTT BUN Creatinine Glucose 151 H POC Glucose 307 H 62 L Lactic Acid AST Ammonia Albumin Vitamin B12 Urine pH Urine WBC (Auto) Salicylates 07/20/17 07/20/17 07/20/17 16:19 16:38 18:12 RBC Evans % (Auto) Lymph # Seg Neutrophils % APTT BUN Creatinine Glucose 105 H POC Glucose < 40 L 66 L Lactic Acid AST Ammonia Albumin Vitamin B12 Urine pH Urine WBC (Auto) Salicylates 07/20/17 07/20/17 07/20/17 21:11 21:24 23:39 RBC Evans % (Auto) Lymph # Seg Neutrophils % APTT BUN Creatinine Glucose POC Glucose < 40 L 200 H 45 L Lactic Acid AST Ammonia Albumin Vitamin B12 Urine pH Urine WBC (Auto) Salicylates 07/21/17 07/21/17 07/21/17 00:11 05:30 05:30 RBC 3.58 L Evans % (Auto) 8.5 H Lymph # 0.9 L Seg Neutrophils % 71.7 H APTT BUN Creatinine Glucose POC Glucose 148 H Lactic Acid 3.50 H* AST Ammonia Albumin Vitamin B12 Urine pH Urine WBC (Auto) Salicylates 07/21/17 07/21/17 07/21/17 05:30 05:55 07:15 RBC Evans % (Auto) Lymph # Seg Neutrophils % APTT BUN Creatinine 0.6 L Glucose POC Glucose 67 L 257 H Lactic Acid AST Ammonia Albumin Vitamin B12 Urine pH Urine WBC (Auto) Salicylates 07/21/17 07/21/17 07/21/17 08:19 09:55 12:11 RBC Evans % (Auto) Lymph # Seg Neutrophils % APTT BUN Creatinine Glucose POC Glucose 281 H 278 H 218 H Lactic Acid AST Ammonia Albumin Vitamin B12 Urine pH Urine WBC (Auto) Salicylates 07/21/17 07/21/17 07/21/17 13:49 15:54 17:36 RBC Evans % (Auto) Lymph # Seg Neutrophils % APTT BUN Creatinine Glucose POC Glucose 161 H 180 H 161 H Lactic Acid AST Ammonia Albumin Vitamin B12 Urine pH Urine WBC (Auto) Salicylates 07/21/17 07/22/17 07/22/17 18:50 00:36 07:26 RBC Evans % (Auto) Lymph # Seg Neutrophils % APTT BUN Creatinine Glucose POC Glucose 170 H 242 H 342 H Lactic Acid AST Ammonia Albumin Vitamin B12 Urine pH Urine WBC (Auto) Salicylates 07/22/17 07/22/17 07/22/17 10:54 12:49 13:49 RBC Evans % (Auto) Lymph # Seg Neutrophils % APTT BUN Creatinine Glucose POC Glucose 429 H 288 H 272 H Lactic Acid AST Ammonia Albumin Vitamin B12 Urine pH Urine WBC (Auto) Salicylates 07/22/17 07/22/17 14:10 18:01 RBC Evans % (Auto) Lymph # Seg Neutrophils % APTT BUN Creatinine Glucose POC Glucose 350 H Lactic Acid AST Ammonia Albumin Vitamin B12 1118 H Urine pH Urine WBC (Auto) Salicylates Assessment and Plan Impression: 1. Metabolic encephalopathy 2. History of right frontal subdural hematoma Plan: 1. When asked by her grandson, I explained it may take several days for her mental status to recover from the ups and downs of glucose. She apparently had several episodes of glucose around [address] Donovan, her glucoses stay better when she gets tube feedings rather than oral feedings. 2. May need brain MRI if not improved by tomorrow. Does not have to be all the way back to baseline as long as improvement is being seen in terms of mental status. 3. TSH was 0.929. We will order B12 per request of Dr. Donovan and I will add a free T4 and B1 and folate. 4. Will reinstitute levetiracetam 500 mg by mouth twice a day though her outside neurologist may wish to consider tapering her off it if no history of seizures. This may depend on whether this was an SDH or ICH with SDH. 60 minutes spent today with this patient. Thank you for an interesting consultation on this unfortunate elderly lady.
[2017-07-22] MEDS ORDERED: LEVEMIR SUB-Q SCH (22:00)
[2017-07-23 06:37] LABS: BUN/Creatinine Ratio 23; Blood Urea Nitrogen 18 mg/dL (7-17); Calcium 8.6 mg/dL (8.4-10.2); Hemolysis Index 4
[2017-07-23] MEDS: ZOSYN/NS 3.375GM/50ML 3.375 GM/50 ML BAG IV SCH ×3 (07:44→22:33)
[2017-07-23] MEDS ORDERED: KIONEX PO PRN (09:25)
[2017-07-23] MEDS ORDERED: CALCIUM GLUCONATE 1,000 MG in NACL 0.9% 100 ML IV ONE (09:25)
[2017-07-23] MEDS: KEPPRA PO SCH ×2 (09:28→22:30)
--- NOTE | 2017-07-23 15:04 | Progress Note ---
<FELIPE CASPER - Last Filed: 07/23/17 15:06> Assessment and Plan Assessment and plan: 86-year-old [place] female with past medical history significant for diabetes mellitus, DKA, UTI, subdural hematoma 2, debility, G-tube feedings brought to the emergency department for the complaints of altered mental status. Hyperkalemia corrected, will continue to monitor Altered mental status - No longer comatosed, Acute metabolic encephalopathy - fluctuating glucose level hypoglycemia as a possibility - CT head no acute intracranial abnormality identified, MRI ordered - Neurology Pal following- restarted Keppra, Sepsis secondary to UTI - Patient is on IV antibiotic (zosyn), her urine culture from her previous admission was kapoor sensitive - Lactic acid level is high, patient is on IV fluid, continue Brittle diabetes - Her blood sugars fluctuating, Continue subqu insulin, goal to keep BG 160-180 range, detemir 8 units at bedtime. 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 She appears to be in no acute distress. Labs and nursing notes reviewed. Hospitalist Physical - Constitutional Vitals: Temp Pulse Resp BP Pulse Ox 99.0 F 87 18 138/75 99 07/23/17 07:56 07/23/17 07:56 07/23/17 07:56 07/23/17 07:56 07/23/17 07:56 General appearance: Present: no acute distress, cachectic - EENT Eyes: Present: PERRL, EOM intact ENT: hearing intact, clear oral mucosa, poor dentition - Neck Neck: Present: supple, normal ROM - Respiratory Respiratory effort: normal Respiratory: bilateral: CTA - Cardiovascular Rhythm: regular Heart Sounds: Present: S1 & S2 - Extremities Extremities: no ischemia, No edema - Abdominal General gastrointestinal: soft, non-tender, non-distended - Integumentary Integumentary: Present: clear, warm, dry - Psychiatric Psychiatric: other (calm) - Neurologic Neurologic: CNII-XII intact, moves all extremities - Allied Health Allied health notes reviewed: nursing Results - Labs CBC & Chem 7: 07/21/17 05:30 07/23/17 05:46 Labs: Laboratory Last Values WBC 5.5 K/mm3 (4.5-11.0) 07/21/17 05:30 RBC 3.58 M/mm3 (3.65-5.03) L 07/21/17 05:30 Hgb 11.0 gm/dl (10.1-14.3) 07/21/17 05:30 Hct 32.8 % (30.3-42.9) 07/21/17 05:30 MCV 92 fl (79-97) 07/21/17 05:30 MCH 31 pg (28-32) 07/21/17 05:30 MCHC 33 % (30-34) 07/21/17 05:30 RDW 15.0 % (13.2-15.2) 07/21/17 05:30 Plt Count 309 K/mm3 (140-440) 07/21/17 05:30 Lymph % (Auto) 16.0 % (13.4-35.0) 07/21/17 05:30 [place] % (Auto) 8.5 % (0.0-7.3) H 07/21/17 05:30 Eos % (Auto) 3.1 % (0.0-4.3) 07/21/17 05:30 Baso % (Auto) 0.7 % (0.0-1.8) 07/21/17 05:30 Lymph # 0.9 K/mm3 (1.2-5.4) L 07/21/17 05:30 [place] # 0.5 K/mm3 (0.0-0.8) 07/21/17 05:30 Eos # 0.2 K/mm3 (0.0-0.4) 07/21/17 05:30 Baso # 0.0 K/mm3 (0.0-0.1) 07/21/17 05:30 Seg Neutrophils % 71.7 % (40.0-70.0) H 07/21/17 05:30 Seg Neutrophils # 3.9 K/mm3 (1.8-7.7) 07/21/17 05:30 PT 12.2 Sec. (12.2-14.9) 07/20/17 09:27 INR 0.87 (0.87-1.13) 07/20/17 09:27 APTT 22.3 Sec. (24.2-36.6) L 07/20/17 09:27 Sodium 139 mmol/L (137-145) 07/23/17 05:46 Potassium 5.5 mmol/L (3.6-5.0) H D 07/23/17 05:46 Chloride 99.9 mmol/L (98-107) 07/23/17 05:46 Carbon Dioxide 21 mmol/L (22-30) L 07/23/17 05:46 Anion Gap 24 mmol/L 07/23/17 05:46 BUN 18 mg/dL (7-17) H 07/23/17 05:46 Creatinine 0.8 mg/dL (0.7-1.2) 07/23/17 05:46 Estimated GFR > 60 ml/min 07/23/17 05:46 BUN/Creatinine Ratio 23 % 07/23/17 05:46 Glucose 257 mg/dL (65-100) H 07/23/17 05:46 POC Glucose 168 (70-105) H 07/23/17 11:45 Lactic Acid 3.50 mmol/L (0.7-2.0) H* 07/21/17 05:30 Calcium 8.6 mg/dL (8.4-10.2) 07/23/17 05:46 Total Bilirubin 0.20 mg/dL (0.1-1.2) 07/20/17 09:27 AST 46 units/L (5-40) H 07/20/17 09:27 ALT 28 units/L (7-56) 07/20/17 09:27 Alkaline Phosphatase 101 units/L (35-129) 07/20/17 09:27 Ammonia 61.0 umol/L (25-60) H 07/20/17 09:27 Total Creatine Kinase 71 units/L (30-135) 07/20/17 09:27 Troponin T < 0.010 ng/mL (0.00-0.029) 07/20/17 09:27 Total Protein 7.2 g/dL (6.3-8.2) 07/20/17 09:27 Albumin 3.5 g/dL (3.9-5) L 07/20/17 09:27 Albumin/Globulin Ratio 0.9 % 07/20/17 09:27 Vitamin B12 1118 pg/mL (211-911) H 07/22/17 14:10 Folate > 20 ng/mL (7.3-26.0) 07/22/17 14:10 TSH 0.929 mlU/mL (0.270-4.200) 07/20/17 09:27 Free T4 1.05 ng/dL (0.76-1.46) 07/22/17 14:10 Urine Color Yellow (Yellow) 07/20/17 12:03 Urine Turbidity Clear (Clear) 07/20/17 12:03 Urine pH 8.0 (5.0-7.0) H 07/20/17 12:03 Ur Specific [place] 1.011 (1.003-1.030) 07/20/17 12:03 Urine Protein 30 mg/dl mg/dL (Negative) 07/20/17 12:03 Urine Glucose (UA) 150 mg/dL (Negative) 07/20/17 12:03 Urine Ketones Neg mg/dL (Negative) 07/20/17 12:03 Urine Blood Sm (Negative) 07/20/17 12:03 Urine Nitrite Neg (Negative) 07/20/17 12:03 Urine Bilirubin Neg (Negative) 07/20/17 12:03 Urine Urobilinogen < 2.0 mg/dL (<2.0) 07/20/17 12:03 Ur Leukocyte Esterase Lg (Negative) 07/20/17 12:03 Urine WBC (Auto) 105.0 /HPF (0.0-6.0) H 07/20/17 12:03 Urine RBC (Auto) 2.0 /HPF (0.0-6.0) 07/20/17 12:03 U Epithel Cells (Auto) 1.0 /HPF (0-13.0) 07/20/17 12:03 Urine Bacteria (Auto) 1+ /HPF (Negative) 07/20/17 12:03 Salicylates < 0.3 mg/dL (2.8-20.0) L 07/20/17 09: Acetaminophen < 15.0 ug/mL (10.0-30.0) 07/20/17 09:27 Plasma/Serum Alcohol < 0.01 % (0-0.07) 07/20/17 09:27 <NOHEMI HERNANDEZ R - Last Filed: 07/24/17 08:01> Assessment and Plan Assessment and plan: I saw and evaluated the patient on 07/23/17. I agree with the findings and the plan of care as documented in the Nurse Practitioner's~note, with the following corrections and additions. MRI brain showed no acute abnormality. Monitor K level. added detemir 8 units bedtime, repeat speech eval. Hospitalist Physical - Constitutional Vitals: Temp Pulse Resp BP Pulse Ox 98.2 F 72 18 149/63 97 07/24/17 04:35 07/23/17 15:29 07/24/17 04:35 07/24/17 04:35 07/23/17 22:00 Results - Labs CBC & Chem 7: 07/24/17 04:13 07/24/17 04:13 Labs: Laboratory Last Values WBC 4.4 K/mm3 (4.5-11.0) L 07/24/17 04:13 RBC 3.26 M/mm3 (3.65-5.03) L 07/24/17 04:13 Hgb 10.0 gm/dl (10.1-14.3) L 07/24/17 04:13 Hct 29.8 % (30.3-42.9) L 07/24/17 04:13 MCV 91 fl (79-97) 07/24/17 04:13 MCH 31 pg (28-32) 07/24/17 04:13 MCHC 34 % (30-34) 07/24/17 04:13 RDW 14.6 % (13.2-15.2) 07/24/17 04:13 Plt Count 253 K/mm3 (140-440) 07/24/17 04:13 Lymph % (Auto) 21.9 % (13.4-35.0) 07/24/17 04:13 Vinton % (Auto) 9.4 % (0.0-7.3) H 07/24/17 04:13 Eos % (Auto) 11.5 % (0.0-4.3) H 07/24/17 04:13 Baso % (Auto) 0.7 % (0.0-1.8) 07/24/17 04:13 Lymph # 1.0 K/mm3 (1.2-5.4) L 07/24/17 04:13 [place] # 0.4 K/mm3 (0.0-0.8) 07/24/17 04:13 Eos # 0.5 K/mm3 (0.0-0.4) H 07/24/17 04:13 Baso # 0.0 K/mm3 (0.0-0.1) 07/24/17 04:13 Seg Neutrophils % 56.5 % (40.0-70.0) 07/24/17 04:13 Seg Neutrophils # 2.5 K/mm3 (1.8-7.7) 07/24/17 04:13 PT 12.2 Sec. (12.2-14.9) 07/20/17 09:27 INR 0.87 (0.87-1.13) 07/20/17 09:27 APTT 22.3 Sec. (24.2-36.6) L 07/20/17 09:27 Sodium 140 mmol/L (137-145) 07/24/17 04:13 Potassium 5.2 mmol/L (3.6-5.0) H 07/24/17 04:13 Chloride 101.6 mmol/L (98-107) 07/24/17 04:13 Carbon Dioxide 25 mmol/L (22-30) 07/24/17 04:13 Anion Gap 19 mmol/L 07/24/17 04:13 BUN 18 mg/dL (7-17) H 07/24/17 04:13 Creatinine 0.7 mg/dL (0.7-1.2) 07/24/17 04:13 Estimated GFR > 60 ml/min 07/24/17 04:13 BUN/Creatinine Ratio 26 % 07/24/17 04:13 Glucose 169 mg/dL (65-100) H 07/24/17 04:13 POC Glucose 155 (70-105) H 07/24/17 06:01 Lactic Acid 3.50 mmol/L (0.7-2.0) H* 07/21/17 05:30 Calcium 8.3 mg/dL (8.4-10.2) L 07/24/17 04:13 Total Bilirubin 0.20 mg/dL (0.1-1.2) 07/20/17 09:27 AST 46 units/L (5-40) H 07/20/17 09:27 ALT 28 units/L (7-56) 07/20/17 09:27 Alkaline Phosphatase 101 units/L (35-129) 07/20/17 09:27 Ammonia 61.0 umol/L (25-60) H 07/20/17 09:27 Total Creatine Kinase 71 units/L (30-135) 07/20/17 09: Troponin T < 0.010 ng/mL (0.00-0.029) 07/20/17 09: Total Protein 7.2 g/dL (6.3-8.2) 07/20/17 09: Albumin 3.5 g/dL (3.9-5) L 07/20/17 09: Albumin/Globulin Ratio 0.9 % 07/20/17 09: Vitamin B12 1118 pg/mL (211-911) H 07/22/17 14:10 Folate > 20 ng/mL (7.3-26.0) 07/22/17 14:10 TSH 0.929 mlU/mL (0.270-4.200) 07/20/17 09: Free T4 1.05 ng/dL (0.76-1.46) 07/22/17 14:10 Urine Color Yellow (Yellow) 07/20/17 12:03 Urine Turbidity Clear (Clear) 07/20/17 12:03 Urine pH 8.0 (5.0-7.0) H 07/20/17 12:03 Ur Specific [place] 1.011 (1.003-1.030) 07/20/17 12:03 Urine Protein 30 mg/dl mg/dL (Negative) 07/20/17 12:03 Urine Glucose (UA) 150 mg/dL (Negative) 07/20/17 12:03 Urine Ketones Neg mg/dL (Negative) 07/20/17 12:03 Urine Blood Sm (Negative) 07/20/17 12:03 Urine Nitrite Neg (Negative) 07/20/17 12:03 Urine Bilirubin Neg (Negative) 07/20/17 12:03 Urine Urobilinogen < 2.0 mg/dL (<2.0) 07/20/17 12:03 Ur Leukocyte Esterase Lg (Negative) 07/20/17 12:03 Urine WBC (Auto) 105.0 /HPF (0.0-6.0) H 07/20/17 12:03 Urine RBC (Auto) 2.0 /HPF (0.0-6.0) 07/20/17 12:03 U Epithel Cells (Auto) 1.0 /HPF (0-13.0) 07/20/17 12:03 Urine Bacteria (Auto) 1+ /HPF (Negative) 07/20/17 12:03 Salicylates < 0.3 mg/dL (2.8-20.0) L 07/20/17 09:27 Acetaminophen < 15.0 ug/mL (10.0-30.0) 07/20/17 09:27 Plasma/Serum Alcohol < 0.01 % (0-0.07) 07/20/17 09:27
--- NOTE | 2017-07-23 17:24 | Magnetic Resonance Report ---
FINAL REPORT EXAM: MR BRAIN WO CON HISTORY: AMS TECHNIQUE: Multiplanar multisequence brain MR imaging without IV contrast. PRIORS: Head CT 07/20/2017 FINDINGS: Prior right frontoparietal craniotomy again noted. Artifact anteriorly and inferiorly on diffusion-weighted imaging obscures this region and limits the examination. The included air filled sinuses contain no acute fluid level. There remains ventricular and sulcal prominence compatible with global symmetric cerebrocortical atrophy. The brain is without mass, mass effect, hemorrhage, or acute infarct. There are no areas of brain restricted diffusion to suggest an acute ischemic infarct in the visible portion of the brain. There is no midline shift or brain edema. IMPRESSION: No acute CVA or brain mass
[2017-07-23] MEDS: NACL 0.9% 1000 ML 1,000 ML IV SCH (17:40)
--- NOTE | 2017-07-23 19:14 | Progress Note ---
Assessment and Plan Impression: 1. Metabolic encephalopathy, residual of hypoglycemia 2. Status post right frontal subdural hematoma evacuation with resulting left hemiparesis Plan: 1. Since she seems to be nearly back to her baseline and MRI showed no acute lesions, will sign off. 2. Call if any further questions. Would expect her to take perhaps another week to be back to her baseline assuming blood sugars remained well controlled. Subjective Date of service: 07/23/17 Principal diagnosis: altered mental status Interval history: Chief complaint: Altered mental status History of present illness: This mid-80s [place] Stat[place] female is seen again in follow-up. I happened to encounter her grandson earlier near the cafeteria who said that she was able to carry on a conversation with him this morning. I reviewed her brain MRI from today showing moderate to severe atrophy but no acute lesions or old lesions. No low blood sugars today. No family is present at the time of my examination. B12 was 1118, folate greater than 20, TSH 0.929 and free T4 1.05. Vitamin B1 is pending. Objective - Exam Narrative Exam: Gen. appearance: Well-developed well-nourished (per BMI) mid 80s [place] Stateless female in [facility]. Neurologic Exam: Mental Status: Cannot give month or day of week with multiple choice but seems to say 4 and then 5 when I offered 1999 as the year prompt, echoed hospital as a multiple choice for location and when I said is this a hospital she said yes. Speech is clearer today, cannot name pen. Cranial Nerves: Some blink to threat bilaterally, PERRL, EOMs full grossly, no facial weakness, seems to hear me since she echoes me, shoulder shrug is apraxic , tongue protrusion is apraxic. Cerebellar: finger to nose and [id number] cannot be done due to apraxia and perhaps some receptive dysphasia. Motor Exam Upper Extremities: Take Away Man is apraxic but gives 4- on the right and 3+ left, no drift or pronation. Motor Exam Lower Extremities: Lifts legs individually at 4 on the right and 4- on the left. Anterior tibialis is apraxic on the left but gives 4+ on the right , gastrocnemius is apraxic bilaterally. - Vital Sign Vital Signs - 12hr 07/23/17 07/23/17 07:56 15:29 Temperature 99.0 F 98.9 F Pulse Rate 87 72 Respiratory 18 20 Rate Blood Pressure 138/75 170/62 O2 Sat by Pulse 99 100 Oximetry - Laboratory Findings CBC and BMP: 07/21/17 05:30 07/23/17 05:46 Abnormal Lab Findings: Abnormal Labs 07/20/17 07/20/17 07/20/17 09:27 09:27 09:27 RBC [place] % (Auto) 7.4 H Lymph # 0.9 L Seg Neutrophils % 75.5 H APTT Potassium Carbon Dioxide BUN 18 H Creatinine 0.5 L Glucose 106 H POC Glucose Lactic Acid 2.50 H* AST 46 H Ammonia Albumin 3.5 L Vitamin B12 Urine pH Urine WBC (Auto) Salicylates 07/20/17 07/20/17 07/20/17 09:27 09:27 09:27 RBC [place] % (Auto) Lymph # Seg Neutrophils % APTT 22.3 L Potassium Carbon Dioxide BUN Creatinine Glucose POC Glucose Lactic Acid AST Ammonia 61.0 H Albumin Vitamin B12 Urine pH Urine WBC (Auto) Salicylates < 0.3 L 07/20/17 07/20/17 07/20/17 09:38 12:03 13:35 RBC [place] % (Auto) Lymph # Seg Neutrophils % APTT Potassium Carbon Dioxide BUN Creatinine Glucose POC Glucose 125 H < 40 L Lactic Acid AST Ammonia Albumin Vitamin B12 Urine pH 8.0 H Urine WBC (Auto) 105.0 H Salicylates 07/20/17 07/20/17 07/20/17 13:48 13:51 15:59 RBC [place] % (Auto) Lymph # Seg Neutrophils % APTT Potassium Carbon Dioxide BUN Creatinine Glucose 151 H POC Glucose 307 H 62 L Lactic Acid AST Ammonia Albumin Vitamin B12 Urine pH Urine WBC (Auto) Salicylates 07/20/17 07/20/17 07/20/17 16:19 16:38 18:12 RBC [place] % (Auto) Lymph # Seg Neutrophils % APTT Potassium Carbon Dioxide BUN Creatinine Glucose 105 H POC Glucose < 40 L 66 L Lactic Acid AST Ammonia Albumin Vitamin B12 Urine pH Urine WBC (Auto) Salicylates 07/20/17 07/20/17 07/20/17 21:11 21:24 23:39 RBC [place] % (Auto) Lymph # Seg Neutrophils % APTT Potassium Carbon Dioxide BUN Creatinine Glucose POC Glucose < 40 L 200 H 45 L Lactic Acid AST Ammonia Albumin Vitamin B12 Urine pH Urine WBC (Auto) Salicylates 07/21/17 07/21/17 07/21/17 00:11 05:30 05:30 RBC 3.58 L [place] % (Auto) 8.5 H Lymph # 0.9 L Seg Neutrophils % 71.7 H APTT Potassium Carbon Dioxide BUN Creatinine Glucose POC Glucose 148 H Lactic Acid 3.50 H* AST Ammonia Albumin Vitamin B12 Urine pH Urine WBC (Auto) Salicylates 07/21/17 07/21/17 07/21/17 05:30 05:55 07:15 RBC [place] % (Auto) Lymph # Seg Neutrophils % APTT Potassium Carbon Dioxide BUN Creatinine 0.6 L Glucose POC Glucose 67 L 257 H Lactic Acid AST Ammonia Albumin Vitamin B12 Urine pH Urine WBC (Auto) Salicylates 07/21/17 07/21/17 07/21/17 08:19 09:55 12:11 RBC [place] % (Auto) Lymph # Seg Neutrophils % APTT Potassium Carbon Dioxide BUN Creatinine Glucose POC Glucose 281 H 278 H 218 H Lactic Acid AST Ammonia Albumin Vitamin B12 Urine pH Urine WBC (Auto) Salicylates 07/21/17 07/21/17 07/21/17 13:49 15:54 17:36 RBC [place] % (Auto) Lymph # Seg Neutrophils % APTT Potassium Carbon Dioxide BUN Creatinine Glucose POC Glucose 161 H 180 H 161 H Lactic Acid AST Ammonia Albumin Vitamin B12 Urine pH Urine WBC (Auto) Salicylates 07/21/17 07/22/17 07/22/17 18:50 00:36 07:26 RBC [place] % (Auto) Lymph # Seg Neutrophils % APTT Potassium Carbon Dioxide BUN Creatinine Glucose POC Glucose 170 H 242 H 342 H Lactic Acid AST Ammonia Albumin Vitamin B12 Urine pH Urine WBC (Auto) Salicylates 07/22/17 07/22/17 07/22/17 10:54 12:49 13:49 RBC [place] % (Auto) Lymph # Seg Neutrophils % APTT Potassium Carbon Dioxide BUN Creatinine Glucose POC Glucose 429 H 288 H 272 H Lactic Acid AST Ammonia Albumin Vitamin B12 Urine pH Urine WBC (Auto) Salicylates 07/22/17 07/22/17 07/22/17 14:10 18:01 21:20 RBC [place] % (Auto) Lymph # Seg Neutrophils % APTT Potassium Carbon Dioxide BUN Creatinine Glucose POC Glucose 350 H 195 H Lactic Acid AST Ammonia Albumin Vitamin B12 1118 H Urine pH Urine WBC (Auto) Salicylates 07/22/17 07/23/1718 23:36 02:52 05:46 RBC [place] % (Auto) Lymph # Seg Neutrophils % APTT Potassium 5.5 H D Carbon Dioxide 21 L BUN 18 H Creatinine Glucose 257 H POC Glucose 206 H 342 H Lactic Acid AST Ammonia Albumin Vitamin B12 Urine pH Urine WBC (Auto) Salicylates 07/23/17 07/23/17 07/23/17 06:37 08:01 11:45 RBC [place] % (Auto) Lymph # Seg Neutrophils % APTT Potassium Carbon Dioxide BUN Creatinine Glucose POC Glucose 311 H 367 H 168 H Lactic Acid AST Ammonia Albumin Vitamin B12 Urine pH Urine WBC (Auto) Salicylates 07/23/17 16:59 RBC [place] % (Auto) Lymph # Seg Neutrophils % APTT Potassium Carbon Dioxide BUN Creatinine Glucose POC Glucose 304 H Lactic Acid AST Ammonia Albumin Vitamin B12 Urine pH Urine WBC (Auto) Salicylates
[2017-07-23 20:47] LABS: BUN/Creatinine Ratio 24; Blood Urea Nitrogen 19 mg/dL (7-17); Calcium 8.7 mg/dL (8.4-10.2); Hemolysis Index 28
[2017-07-23] MEDS ORDERED: LEVEMIR SUB-Q SCH (22:00)
[2017-07-24 04:54] LABS: Basophils % (Auto) 0.7 % (0.0-1.8); Eosinophils # (Auto) 0.5 K/mm3 (0.0-0.4); Eosinophils % (Auto) 11.5 % (0.0-4.3); Hematocrit 29.8 % (30.3-42.9); Lymphocytes % (Auto) 21.9 % (13.4-35.0); Mean Corpuscular HGB Conc 34 % (30-34); Mean Corpuscular Hemoglobin 31 pg (28-32); Mean Corpuscular Volume 91 fl (79-97); Monocytes # (Auto) 0.4 K/mm3 (0.0-0.8); Monocytes % (Auto) 9.4 % (0.0-7.3); Platelet Count 253 K/mm3 (140-440); Red Blood Count 3.26 M/mm3 (3.65-5.03); Red Cell Distribution Width 14.6 % (13.2-15.2)
[2017-07-24 05:09] LABS: BUN/Creatinine Ratio 26; Blood Urea Nitrogen 18 mg/dL (7-17); Calcium 8.3 mg/dL (8.4-10.2); Hemolysis Index 8
[2017-07-24] MEDS: NACL 0.9% 1000 ML 1,000 ML IV SCH (06:24)
[2017-07-24] MEDS: ZOSYN/NS 3.375GM/50ML 3.375 GM/50 ML BAG IV SCH (07:30)
[2017-07-24] MEDS ORDERED: KIONEX PO ONE (08:15)
[2017-07-24] MEDS ORDERED: SODIUM BICARBONATE IV ONE (08:15)
[2017-07-24] MEDS: KEPPRA PO SCH ×2 (08:46→10:39)
[2017-07-24] MEDS ORDERED: KEFLEX PO SCH (09:00)
[2017-07-24] MEDS ORDERED: NORVASC PO SCH (13:00)
--- NOTE | 2017-07-24 13:00 | Discharge Summary ---
Providers - Providers Date of Admission: 07/20/17 10:49 Date of discharge: 07/24/17 Attending physician: NOHEMI HERNANDEZ 07/20/17 09:39 Consult to Physician [CONS] Urgent Consulting Provider: J LUIS HOOKS Reason For Exam: ams Notified:: awaiting call back 07/21/17 11:21 Consult to Dietitian/Nutrition [CONS] Routine Physician Instructions: Reason For Exam: Reason for Consult: Write/Manage Tube Feeding 07/21/17 18:44 Consult to Physician [CONS] Urgent Consulting Provider: LOCO AGUILLON Reason For Exam: AMS Place consult to:: Dr. Aguillon Notified:: Yes Phone number called:: Yes Was contact made?: Yes If yes, spoke with:: Joanna Time called:: 18:50 Comment:: Left voice message 07/22/17 12:37 Consult to Dietitian/Nutrition [CONS] Routine Physician Instructions: Assess nutrtn needs, initiate, modify, manage TF Reason For Exam: Reason for Consult: Write/Manage Tube Feeding Reason for Consult: Write/Manage Tube Feeding 07/24/17 07:58 Speech Therapy Evaluation and Treat [CONS] Routine Reason For Exam: aspiration Primary care physician: [employer] Hospitalization Condition: Fair Pertinent studies: CT head no acute intracranial abnormality identified No acute CVA or brain mass on MRI Chest x-ray showed No acute cardiopulmonary process. No change since 05/31/17. Hospital course: 86-year-old female with past medical history significant for diabetes mellitus, DKA, UTI, subdural hematoma 2, debility, G-tube feedings brought to the emergency department for the complaints of altered mental status, unresponsive in the ER. Patient's acute metabolic encephalopathy likely due to fluctuating glucose levels. 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 Patient was found to have labile glucose with a few low readings of less than 40 and highs greater than 300. Patient was treated with D50W and her insulin dose was adjusted. Patient was also found to have sepsis secondary to UTI which could've also contributed to her acute metabolic encephalopathy. Patient was treated with IV fluids and IV antibiotics. Patient was treated with oxygen for acute respiratory failure which quickly resolved and patient was back to normal O2 on room air. Patient was discharged to hospice. Discharge diagnoses Hyperkalemia likely due to hyperglycemia Altered mental status likely secondary to UTI and fluctuating glucose levels Sepsis secondary to UTI Brittle diabetes Acute respiratory failure likely due to being comatosed Debility Disposition: DC-[facility]OSPICE ([facility]) Time spent for discharge: 35 minutes Core Measure Documentation - Palliative Care Palliative Care/ Comfort Measures: Hospice Care - Core Measures Any of the following diagnoses?: none Exam - Constitutional Vitals: Temp Pulse Resp BP Pulse Ox 98.2 F 72 18 149/63 97 07/24/17 04:35 07/23/17 15:29 07/24/17 04:35 07/24/17 04:35 07/23/17 22:00 General appearance: Present: no acute distress, well-nourished - EENT Eyes: Present: PERRL, EOM intact ENT: hearing intact, clear oral mucosa - Neck Neck: Present: supple, normal ROM - Respiratory Respiratory effort: normal Respiratory: bilateral: CTA - Cardiovascular Rhythm: regular Heart Sounds: Present: S1 & S2 - Extremities Extremities: pulses symmetrical, No edema Peripheral Pulses: within normal limits - Abdominal General gastrointestinal: Present: soft, non-tender, non-distended, normal bowel sounds - Integumentary Integumentary: Present: clear, warm, dry - Musculoskeletal Musculoskeletal: strength equal bilaterally - Psychiatric Psychiatric: cooperative, other - Neurologic Neurologic: CNII-XII intact, moves all extremities - Allied Health Allied health notes reviewed: nursing Plan Activity: fall precautions Diet: other (pureed diet, tube feedings) Follow up with: PRIMARY CAREMD [Primary Care Provider] - 3-5 Days
[2017-07-24 16:11] VITALS: BP 142/60
== END 2017-07-24 20:00 | disposition hospice, inpatient (51) | DRG 871 ==
LOC: ED 08:57 → 2B-ACE 10:49
PROVIDERS: ADMIT Internal Medicine; ATTEND Internal Medicine
DX: A41.9 Sepsis, unspecified organism (principal); G93.41 Metabolic encephalopathy; J96.00 Acute respiratory failure, unspecified whether with hypoxia or hypercapnia; R53.81 Other malaise; N39.0 Urinary tract infection, site not specified; E87.5 Hyperkalemia; E10.8 Type 1 diabetes mellitus with unspecified complications; Z66 Do not resuscitate; Z83.3 Family history of diabetes mellitus; Z88.8 Allergy status to other drugs, medicaments and biological substances; Z86.73 Personal history of transient ischemic attack (TIA), and cerebral infarction without residual deficits
CPT/HCPCS: 36415; 70450; 70551; 71045; 80048; 80053; 80320; 81001; 82140; 82550; 82607; 82747; 82947; 82962; 84425; 84439; 84443; 84484; 85025; 85610; 85730; 87086; 93005; 93010; 94760; G0480; G8996-GN; G8997-GN; J0610; J0696; J1815; J1818; J2543; J7030; J7040

== ENCOUNTER 2018-03-06 16:40 | Inpatient (IN) | payer MEDICAID, MEDICARE ==
[2018-03-06] MEDS ORDERED: NACL 0.9% 1000 ML 1,000 ML IV ONE (16:52)
[2018-03-06 17:41] LABS: Basophils % (Auto) 0.5 % (0.0-1.8); Eosinophils # (Auto) 0.4 K/mm3 (0.0-0.4); Eosinophils % (Auto) 6.4 % (0.0-4.3); Hematocrit 36.4 % (30.3-42.9); Hemoglobin 12.1 gm/dl (10.1-14.3); Lymphocytes # (Auto) 1.6 K/mm3 (1.2-5.4); Lymphocytes % (Auto) 23.4 % (13.4-35.0); Mean Corpuscular HGB Conc 33 % (30-34); Mean Corpuscular Hemoglobin 31 pg (28-32); Mean Corpuscular Volume 93 fl (79-97); Monocytes # (Auto) 0.6 K/mm3 (0.0-0.8); Monocytes % (Auto) 8.5 % (0.0-7.3); Platelet Count 393 K/mm3 (140-440); Red Blood Count 3.93 M/mm3 (3.65-5.03); Red Cell Distribution Width 15.4 % (13.2-15.2)
--- NOTE | 2018-03-06 17:45 | Cat Scan Report ---
FINAL REPORT EXAM: CT HEAD/BRAIN WO CON HISTORY: altered mental status TECHNIQUE: Axial noncontrast CT images of the brain were performed Total exam DLP 920.48 mGy-cm Comparison: 01/17/2018, 07/20/2017 FINDINGS: Previous right frontal craniotomy. Mild cortical atrophy. Normal walton-white differentiation. No midline shift or mass effect. No intraparenchymal blood products or extra-axial fluid collections. Ventricles and cisterns have normal size and configuration. Clear imaged paranasal sinuses. Unremarkable calvarium other than the craniotomy defect. IMPRESSION: Previous right frontal craniotomy. Mild cortical atrophy. No evidence for acute transcortical infarct, bleed, or mass. If symptoms persist, recommend MRI brain with diffusion-weighted imaging.
--- NOTE | 2018-03-06 17:57 | XRay Report ---
FINAL REPORT EXAM: XR CHEST 1V AP HISTORY: altered mental status, tachycardia TECHNIQUE: Frontal chest x-ray Comparison: 02/03/2018 FINDINGS: Left ventricular configuration to heart. There is mild reticular prominence of the bronchovascular interstitium without focal infiltrate identified. Coarsening is most noted centrally. Patient is mildly scoliotic. Lungs are mildly hyperlucent. Bones are osteopenic. IMPRESSION: Mildly hyperlucent lungs compatible with emphysema. Bronchial wall thickening compatible with chronic bronchitis. No acute infiltrate identified.
[2018-03-06 17:58] LABS: Alanine Aminotransferase 6 units/L (7-56); Albumin 3.2 g/dL (3.9-5); BUN/Creatinine Ratio 103; Blood Urea Nitrogen 82 mg/dL (7-17); Calcium 9.3 mg/dL (8.4-10.2); Hemolysis Index 4
--- NOTE | 2018-03-06 18:11 | Emergency Department Report ---
HPI - General Time Seen by Provider: 03/06/18 16:43 - HPI HPI: Room 20 The patient is an 87-year-old female presenting with chief complaint of altered mental status. Per shelter staff the patient appeared to have worsening altered mental status over the past several days. The shelter staff state at baseline the patient is nonverbal but she is able to open her eyes and make eye contact. Nursing states today the patient doesnt respond at all ED Past Medical Hx - Past Medical History Hx CVA: Yes (hemorrhagic CVA) Hx Diabetes: Yes Additional medical history: anemia, DVT - Surgical History Additional Surgical History: Intracranial hemorrhage evacuation. G-tube - Family History Family history: no significant - Social History Smoking Status: Unknown if ever smoked - Medications Home Medications: Home Medications Medication Instructions Recorded Confirmed Last Taken Type Acetaminophen [Acetaminophen TAB] 500 mg PO Q4H PRN 02/03/18 02/03/18 Unknown History Cholecalciferol (Vitamin D3) 1,000 unit PO DAILY 02/03/18 02/03/18 Unknown History [Vitamin D3] Diclofenac Sodium [Voltaren] 2 gram TRANSDERMA Q12H 02/03/18 02/03/18 Unknown History Insulin Degludec [Tresiba 33 units SUB-Q HS 02/03/18 02/03/18 Unknown History Flextouch U-100] Insulin Glargine,Hum.rec.anlog 15 units SUB-Q HS 02/03/18 02/03/18 Unknown History [Basaglar Kwikpen U-100] Lisinopril [Zestril TAB] 2.5 mg PO QDAY 02/03/18 02/03/18 Unknown History Lispro Insulin [Humalog] 0 unit SUB-Q AC 02/03/18 02/03/18 Unknown History Melatonin 5 mg PO HS 02/03/18 02/03/18 Unknown History Multivitamin Tab W-MINERAL 1 each PO QD 02/03/18 02/03/18 Unknown History [Multiple Vitamin/Mineral (Theragran M)] Omeprazole 20 mg PO DAILY 02/03/18 02/03/18 Unknown History Thiamine HCl [Vitamin B-1] 50 mg PO DAILY 02/03/18 02/03/18 Unknown History levETIRAcetam [Keppra ORAL LIQ] 250 mg PO BID 02/03/18 02/03/18 Unknown History ED Review of Systems ROS: Stated complaint: AMS Other details as noted in HPI Comment: Unobtainable due to pts medical conditions Physical Exam - Physical Exam Physical Exam: Gen: WD female lying on stretcher with eyes closed not responding to verbal or tactile stimuli HEENT: Dry mucous membranes, pupils 3--> 2mm bilat Cardiovascular: rrr no m/r/g Lungs- BS equal bilat Abd: S/NT/ND NABS Neuro: Pt is obtunded and does not respond to commands or tactile stimuli Musculoskeletal: No obvious deformity Skin: there is no diaphoresis ED Course - Consultations Consultation #1: 03/06/18 19:08 intermediate called ED Medical Decision Making - Lab Data Result diagrams: 03/06/18 17:18 03/06/18 17:18 Laboratory Tests 03/06/18 03/06/18 03/06/18 17:18 17:18 17:18 WBC 6.9 RBC 3.93 Hgb 12.1 Hct 36.4 MCV 93 MCH 31 MCHC 33 RDW 15.4 H Plt Count 393 Lymph % (Auto) 23.4 [place] % (Auto) 8.5 H Eos % (Auto) 6.4 H Baso % (Auto) 0.5 Lymph # 1.6 [place] # 0.6 Eos # 0.4 Baso # 0.0 Seg Neutrophils % 61.2 Seg Neutrophils # 4.2 Sodium 140 Potassium 4.9 Chloride 97.3 L Carbon Dioxide 32 H Anion Gap 16 BUN 82 H Creatinine 0.8 Estimated GFR > 60 BUN/Creatinine Ratio 103 Glucose 249 H Calcium 9.3 Total Bilirubin 0.20 AST 25 ALT 6 L Alkaline Phosphatase 81 Troponin T 0.066 H Total Protein 8.0 Albumin 3.2 L Albumin/Globulin Ratio 0.7 Triglycerides 194 H Cholesterol 179 LDL Cholesterol Direct 118 HDL Cholesterol 47 Cholesterol/HDL Ratio 3.80 - EKG Data -: EKG Interpreted by Me EKG shows normal: sinus rhythm Rate: normal - EKG Data When compared to previous EKG there are: changes noted Interpretation: nonspecific ST-T wave calixto (new T wave inversions in leads V4, V5 , V6) - Radiology Data Radiology results: report reviewed (CT head), image reviewed (Ct Head) [facility] [address] [place] [address] Cat Scan Report Signed Patient: SHALOM GONZALEZ MR#: [id number] : 1930 Acct:[id number] Age/Sex: 87 / F ADM Date: 03/06/18 Loc: ED Attending Dr: Ordering Physician: TRACE FU MD Date of Service: 03/06/18 Procedure(s): CT head/brain wo con Accession Number(s): [id number] cc: TRACE FU MD FINAL REPORT EXAM: CT HEAD/BRAIN WO CON HISTORY: altered mental status TECHNIQUE: Axial noncontrast CT images of the brain were performed Total exam DLP 920.48 mGy-cm Comparison: 01/17/2018, 07/20/2017 FINDINGS: Previous right frontal craniotomy. Mild cortical atrophy. Normal walton-white differentiation. No midline shift or mass effect. No intraparenchymal blood products or extra-axial fluid collections. Ventricles and cisterns have normal size and configuration. Clear imaged paranasal sinuses. Unremarkable calvarium other than the craniotomy defect. IMPRESSION: Previous right frontal craniotomy. Mild cortical atrophy. No evidence for acute transcortical infarct, bleed, or mass. If symptoms persist , recommend MRI brain with diffusion-weighted imaging. Transcribed By: MP Dictated By: TRAVIS CASTANEDA Electronically Authenticated By: TRAVIS CASTANEDA Signed Date/Time: 03/06/181742 DD/ 42 TD/TT: 03/06/181742 - Differential Diagnosis AMS Critical care attestation.: If time is entered above; I have spent that time in minutes in the direct care of this critically ill patient, excluding procedure time. ED Disposition Clinical Impression: Altered mental status, T wave inversion in EKG, Elevated troponin Disposition: OP ADMIT IP TO THIS HOSP Is pt being admited?: Yes Does the pt Need Aspirin: Yes Condition: Fair Time of Disposition: 20:02
[2018-03-06] MEDS ORDERED: ASPIRIN PR ONE (18:13)
[2018-03-06 18:15] LABS: Chol/HDL Ratio 3.8 %
--- NOTE | 2018-03-06 19:20 | History and Physical Report ---
History of Present Illness Chief complaint: She is confused, worse than normal History of present illness: 87 YO Female Fdc Resident with Dementia, Debility, DM, CVA, ICH, Anemia presents to ED for evaluation. Pt is lethargic and unable to provide history. Pt history taken from ED Staff, and SNF Staff. As per staff, the patient was found to be more confused and weak today. As per SNF staff, the patient level of responsiveness is diminished compared to her baseline level of confusion on the previous day. EMS notified and patient transported to [facility] for further care and evaluation. No reports of fever, chills, CP, Palpitations, NVD , loose stools, rashes, or generalized body pain, body aches, trauma, seizure, or medication noncompliance. Pt seen and evaluated in ED and found to have Encephalopathy. Pt admitted to [facility] unit. Past History Past Medical History: anemia, diabetes, stroke, other (dementia) Past Surgical History: Other (Brain surgery, G tube) Social history: . denies: smoking, alcohol abuse, prescription drug abuse Family history: no significant family history (reviewed) Medications and Allergies Allergies Allergy/AdvReac Type Severity Reaction Status Date / Time heparin AdvReac Bleeding Verified 05/20/17 18:51 Home Medications Medication Instructions Recorded Confirmed Last Taken Type Acetaminophen [Acetaminophen TAB] 500 mg PO Q4H PRN 02/03/18 02/03/18 Unknown History Cholecalciferol (Vitamin D3) 1,000 unit PO DAILY 02/03/18 02/03/18 Unknown History [Vitamin D3] Diclofenac Sodium [Voltaren] 2 gram TRANSDERMA Q12H 02/03/18 02/03/18 Unknown History Insulin Degludec [Tresiba 33 units SUB-Q HS 02/03/18 02/03/18 Unknown History Flextouch U-100] Insulin Glargine,Hum.rec.anlog 15 units SUB-Q HS 02/03/18 02/03/18 Unknown History [Basaglar Kwikpen U-100] Lisinopril [Zestril TAB] 2.5 mg PO QDAY 02/03/18 02/03/18 Unknown History Lispro Insulin [Humalog] 0 unit SUB-Q AC 02/03/18 02/03/18 Unknown History Melatonin 5 mg PO HS 02/03/18 02/03/18 Unknown History Multivitamin Tab W-MINERAL 1 each PO QD 02/03/18 02/03/18 Unknown History [Multiple Vitamin/Mineral (Theragran M)] Omeprazole 20 mg PO DAILY 02/03/18 02/03/18 Unknown History Thiamine HCl [Vitamin B-1] 50 mg PO DAILY 02/03/18 02/03/18 Unknown History levETIRAcetam [Keppra ORAL LIQ] 250 mg PO BID 02/03/18 02/03/18 Unknown History Review of Systems ROS unobtainable: due to mental status Exam - Constitutional Vitals: Temp Pulse Resp BP Pulse Ox 99.8 F H 112 H 16 137/83 03/06/18 17:07 03/06/18 17:07 03/06/18 17:07 03/06/18 17:07 General appearance: Present: mild distress - EENT Eyes: Present: miosis - Neck Neck: Present: supple, normal ROM - Respiratory Respiratory effort: normal Respiratory: bilateral: diminished - Cardiovascular Heart Sounds: Present: S1 & S2. Absent: rub, click - Extremities Extremities: pulses symmetrical, No edema Peripheral Pulses: within normal limits - Abdominal General gastrointestinal: Present: soft, non-tender, non-distended, normal bowel sounds, other (peg in place) Female genitourinary: Present: normal - Integumentary Integumentary: Present: clear, dry, decreased turgor - Musculoskeletal Musculoskeletal: generalized weakness - Psychiatric Psychiatric: no appropriate mood/affect, no intact judgment & insight, no memory intact - Neurologic Neurologic: focal deficits, no gait normal Results - Labs CBC & Chem 7: 03/06/18 17:18 03/06/18 17:18 Labs: Abnormal lab results 03/06/18 03/06/18 03/06/18 Range/Units 17:18 17:18 17:18 RDW 15.4 H (13.2-15.2) % [place] % (Auto) 8.5 H (0.0-7.3) % Eos % (Auto) 6.4 H (0.0-4.3) % Chloride 97.3 L (98-107) mmol/L Carbon Dioxide 32 H (22-30) mmol/L BUN 82 H (7-17) mg/dL Glucose 249 H (65-100) mg/dL ALT 6 L (7-56) units/L Troponin T 0.066 H (0.00-0.029) ng/mL Albumin 3.2 L (3.9-5) g/dL Triglycerides 194 H (2-149) mg/dL Assessment and Plan - Patient Problems (1) Encephalopathy Current Visit: No Status: Acute Plan to address problem: CT Head, Neuro checks, seizure precautions, aspiration precautions, EEG, urinalysis, CBC, CMP (2) Severe malnutrition Current Visit: No Status: Acute Plan to address problem: Nutrition consulted, tube feeding as per nutrition team. (3) Diabetes Current Visit: Yes Status: Acute Plan to address problem: ADA diet, insulin, accu check (4) DVT prophylaxis Current Visit: No Status: Acute Plan to address problem: scd to ble while in bed.
[2018-03-06] MEDS ORDERED: ZOFRAN IV PRN (19:22)
[2018-03-06] MEDS ORDERED: TYLENOL PO PRN (19:22)
[2018-03-06] MEDS ORDERED: SODIUM CHLORIDE FLUSH SYRINGE 10 ML IV PRN (19:22)
[2018-03-06] MEDS ORDERED: PROVENTIL IH PRN (19:22)
[2018-03-06 20:32] LABS: Bilirubin,Urine NEG (Negative); Blood,Urine NEG (Negative); Color,Urine Yellow (Yellow); Mucus,Urine FEW /HPF; Protein,Urine <15 mg/dL mg/dL (Negative); Urobilinogen,Urine < 2.0 mg/dL (<2.0)
[2018-03-06 21:58] LABS: Free T4 (Free Thyroxine) 0.97 ng/dL (0.76-1.46)
[2018-03-06] MEDS: SODIUM CHLORIDE FLUSH SYRINGE 10 ML IV SCH (22:29)
--- NOTE | 2018-03-07 09:40 | Progress Note ---
Assessment and Plan Assessment and plan: Encephalopathy CT Head with no acute findings,cont. Neuro checks, seizure precautions, aspiration precautions, F/u EEG, urinalysis, CBC, CMP Severe malnutrition Nutrition consulted, tube feeding as per nutrition team. Diabetes ADA diet, insulin, accu check DVT prophylaxis scd to ble while in bed. History Interval history: Pt is lethargic and nonverbal at present. Unsure of [facility] Hospitalist Physical - Constitutional Vitals: Temp Pulse Resp BP Pulse Ox 97.2 F L 83 18 144/79 100 03/07/18 07:22 03/07/18 07:22 03/07/18 07:22 03/07/18 07:22 03/07/18 07:22 General appearance: Present: mild distress - EENT Eyes: Present: PERRL, EOM intact ENT: hearing intact, clear oral mucosa, dentition normal - Neck Neck: Present: supple, normal ROM - Respiratory Respiratory effort: normal Respiratory: bilateral: CTA - Cardiovascular Rhythm: regular Heart Sounds: Present: S1 & S2. Absent: gallop, rub - Extremities Extremities: no ischemia, No edema, Full ROM - Abdominal General gastrointestinal: soft, non-tender, non-distended, normal bowel sounds - Integumentary Integumentary: Present: clear, warm, dry - Neurologic Neurologic: CNII-XII intact, moves all extremities Results - Labs CBC & Chem 7: 03/06/18 17:18 03/06/18 17:18 Labs: Laboratory Last Values WBC 6.9 K/mm3 (4.5-11.0) 03/06/18 17:18 RBC 3.93 M/mm3 (3.65-5.03) 03/06/18 17:18 Hgb 12.1 gm/dl (10.1-14.3) 03/06/18 17:18 Hct 36.4 % (30.3-42.9) 03/06/18 17:18 MCV 93 fl (79-97) 03/06/18 17:18 MCH 31 pg (28-32) 03/06/18 17:18 MCHC 33 % (30-34) 03/06/18 17:18 RDW 15.4 % (13.2-15.2) H 03/06/18 17:18 Plt Count 393 K/mm3 (140-440) 03/06/18 17:18 Lymph % (Auto) 23.4 % (13.4-35.0) 03/06/18 17:18 [place] % (Auto) 8.5 % (0.0-7.3) H 03/06/18 17:18 Eos % (Auto) 6.4 % (0.0-4.3) H 03/06/18 17:18 Baso % (Auto) 0.5 % (0.0-1.8) 03/06/18 17:18 Lymph # 1.6 K/mm3 (1.2-5.4) 03/06/18 17:18 [place] # 0.6 K/mm3 (0.0-0.8) 03/06/18 17:18 Eos # 0.4 K/mm3 (0.0-0.4) 03/06/18 17:18 Baso # 0.0 K/mm3 (0.0-0.1) 03/06/18 17:18 Seg Neutrophils % 61.2 % (40.0-70.0) 03/06/18 17:18 Seg Neutrophils # 4.2 K/mm3 (1.8-7.7) 03/06/18 17:18 Sodium 140 mmol/L (137-145) 03/06/18 17:18 Potassium 4.9 mmol/L (3.6-5.0) 03/06/18 17:18 Chloride 97.3 mmol/L (98-107) L 03/06/18 17:18 Carbon Dioxide 32 mmol/L (22-30) H 03/06/18 17:18 Anion Gap 16 mmol/L 03/06/18 17:18 BUN 82 mg/dL (7-17) H 03/06/18 17:18 Creatinine 0.8 mg/dL (0.7-1.2) 03/06/18 17:18 Estimated GFR > 60 ml/min 03/06/18 17:18 BUN/Creatinine Ratio 103 % 03/06/18 17:18 Glucose 249 mg/dL (65-100) H 03/06/18 17:18 POC Glucose 200 (70-105) H 03/07/18 07:20 Lactic Acid 1.30 mmol/L (0.7-2.0) 03/07/18 05:51 Calcium 9.3 mg/dL (8.4-10.2) 03/06/18 17:18 Total Bilirubin 0.20 mg/dL (0.1-1.2) 03/06/18 17:18 AST 25 units/L (5-40) 03/06/18 17:18 ALT 6 units/L (7-56) L 03/06/18 17:18 Alkaline Phosphatase 81 units/L (35-129) 03/06/18 17:18 Troponin T 0.039 ng/mL (0.00-0.029) H D 03/07/18 05:51 Total Protein 8.0 g/dL (6.3-8.2) 03/06/18 17:18 Albumin 3.2 g/dL (3.9-5) L 03/06/18 17:18 Albumin/Globulin Ratio 0.7 % 03/06/18 17:18 Triglycerides 194 mg/dL (2-149) H 03/06/18 17:18 Cholesterol 179 mg/dL (50-199) 03/06/18 17:18 LDL Cholesterol Direct 118 mg/dL (50-130) 03/06/18 17:18 HDL Cholesterol 47 mg/dL (40-59) 03/06/18 17:18 Cholesterol/HDL Ratio 3.80 % 03/06/18 17:18 TSH 1.500 mlU/mL (0.270-4.200) 03/06/18 20:18 Free T4 0.97 ng/dL (0.76-1.46) 03/06/18 20:18 Urine Color Yellow (Yellow) 03/06/18 19:55 Urine Turbidity Slightly-cloudy (Clear) 03/06/18 19:55 Urine pH 6.0 (5.0-7.0) 03/06/18 19:55 Ur Specific [place] 1.016 (1.003-1.030) 03/06/18 19:55 Urine Protein <15 mg/dl mg/dL (Negative) 03/06/18 19:55 Urine Glucose (UA) Neg mg/dL (Negative) 03/06/18 19:55 Urine Ketones Neg mg/dL (Negative) 03/06/18 19:55 Urine Blood Neg (Negative) 03/06/18 19:55 Urine Nitrite Neg (Negative) 03/06/18 19:55 Urine Bilirubin Neg (Negative) 03/06/18 19:55 Urine Urobilinogen < 2.0 mg/dL (<2.0) 03/06/18 19:55 Ur Leukocyte Esterase Lg (Negative) 03/06/18 19:55 Urine WBC (Auto) 76.0 /HPF (0.0-6.0) H 03/06/18 19:55 Urine RBC (Auto) 1.0 /HPF (0.0-6.0) 03/06/18 19:55 Urine Mucus Few /HPF 03/06/18 19:55 Urine Yeast (Budding) 2+ /HPF 03/06/18 19:55
[2018-03-07] MEDS ORDERED: SIMPLE SYRUP FEEDTUBE PRN ×2 (09:43)
[2018-03-07] MEDS ORDERED: PANCREAZE DR 10,500 UNIT FEEDTUBE PRN (09:43)
[2018-03-07] MEDS ORDERED: SODIUM BICARBONATE FEEDTUBE PRN (09:43)
[2018-03-07] MEDS: SODIUM CHLORIDE FLUSH SYRINGE 10 ML IV SCH ×2 (10:30→22:03)
--- NOTE | 2018-03-07 12:33 | Consultation ---
History of Present Illness Consult date: 03/07/18 Consult reason: abnormal cardiac enzymes (Patient was noted to have abnormal EKG and elevated troponin ,hence consult.) Past History Past Medical History: anemia, diabetes, stroke, other (dementia) Past Surgical History: Other (Brain surgery, G tube) Social history: . denies: smoking, alcohol abuse, prescription drug abuse Family history: no significant family history (reviewed) Medications and Allergies Allergies Allergy/AdvReac Type Severity Reaction Status Date / Time heparin AdvReac Bleeding Verified 05/20/17 18:51 Home Medications Medication Instructions Recorded Confirmed Last Taken Type Acetaminophen [Acetaminophen TAB] 500 mg PO Q4H PRN 02/03/18 02/03/18 Unknown History Cholecalciferol (Vitamin D3) 1,000 unit PO DAILY 02/03/18 02/03/18 Unknown History [Vitamin D3] Diclofenac Sodium [Voltaren] 2 gram TRANSDERMA Q12H 02/03/18 02/03/18 Unknown History Insulin Degludec [Tresiba 33 units SUB-Q HS 02/03/18 02/03/18 Unknown History Flextouch U-100] Insulin Glargine,Hum.rec.anlog 15 units SUB-Q HS 02/03/18 02/03/18 Unknown History [Basaglar Kwikpen U-100] Lisinopril [Zestril TAB] 2.5 mg PO QDAY 02/03/18 02/03/18 Unknown History Lispro Insulin [Humalog] 0 unit SUB-Q AC 02/03/18 02/03/18 Unknown History Melatonin 5 mg PO HS 02/03/18 02/03/18 Unknown History Multivitamin Tab W-MINERAL 1 each PO QD 02/03/18 02/03/18 Unknown History [Multiple Vitamin/Mineral (Theragran M)] Omeprazole 20 mg PO DAILY 02/03/18 02/03/18 Unknown History Thiamine HCl [Vitamin B-1] 50 mg PO DAILY 02/03/18 02/03/18 Unknown History levETIRAcetam [Keppra ORAL LIQ] 250 mg PO BID 02/03/18 02/03/18 Unknown History Active Meds: Active Medications Acetaminophen (Tylenol) 650 mg PO Q4H PRN PRN Reason: Pain MILD(1-3)/Fever >100.5/BENNETT Albuterol (Proventil) 2.5 mg IH Q4H PRN PRN Reason: Shortness Of Breath Lipase/Protease/Amylase (Ghada Velazco 10,500 Unit) 1 each FEEDTUBE PRN PRN PRN Reason: For Clogged Feeding Tube Ondansetron HCl (Zofran) 4 mg IV Q8H PRN PRN Reason: Nausea And Vomiting Simple Syrup (Simple Syrup) 15 ml FEEDTUBE PRN PRN PRN Reason: Hypoglycemia Simple Syrup (Simple Syrup) 30 ml FEEDTUBE PRN PRN PRN Reason: Hypoglycemia Sodium Bicarbonate (Sodium Bicarbonate) 325 mg FEEDTUBE PRN PRN PRN Reason: For Clogged Feeding Tube Sodium Chloride (Sodium Chloride Flush Syringe 10 Ml) 10 ml IV BID DENNIS Last Admin: 03/07/18 10:30 Dose: 10 ml Sodium Chloride (Sodium Chloride Flush Syringe 10 Ml) 10 ml IV PRN PRN PRN Reason: LINE FLUSH Review of Systems ROS unobtainable: due to mental status Physical Examination Vital Signs Pulse Ox 100 03/06/18 16:48 General appearance: no acute distress HEENT: Positive: Normocephaly Neck: Positive: neck supple, trachea midline Cardiac: Positive: Reg Rate and Rhythm. Negative: Audible Murmur Lungs: Positive: clear to auscultation Neuro: Positive: Other (not resopnsive to verbal commands.) Abdomen: Positive: Unremarkable (PEG tube in place.) Skin: Negative: Rash Extremities: Absent: edema Results 03/06/18 17:18 03/06/18 17:18 Cardiac Enzymes 03/06/18 Range/Units 17:18 AST 25 (5-40) units/L Lipids 03/06/18 Range/Units 17:18 Triglycerides 194 H (2-149) mg/dL Cholesterol 179 (50-199) mg/dL HDL Cholesterol 47 (40-59) mg/dL Cholesterol/HDL Ratio 3.80 % CBC 03/06/18 Range/Units 17:18 WBC 6.9 (4.5-11.0) K/mm3 RBC 3.93 (3.65-5.03) M/mm3 Hgb 12.1 (10.1-14.3) gm/dl Hct 36.4 (30.3-42.9) % Plt Count 393 (140-440) K/mm3 Lymph # 1.6 (1.2-5.4) K/mm3 [place] # 0.6 (0.0-0.8) K/mm3 Eos # 0.4 (0.0-0.4) K/mm3 Baso # 0.0 (0.0-0.1) K/mm3 Comprehensive Metabolic Panel 03/06/18 Range/Units 17:18 Sodium 140 (137-145) mmol/L Potassium 4.9 (3.6-5.0) mmol/L Chloride 97.3 L (98-107) mmol/L Carbon Dioxide 32 H (22-30) mmol/L BUN 82 H (7-17) mg/dL Creatinine 0.8 (0.7-1.2) mg/dL Glucose 249 H (65-100) mg/dL Calcium 9.3 (8.4-10.2) mg/dL AST 25 (5-40) units/L ALT 6 L (7-56) units/L Alkaline Phosphatase 81 (35-129) units/L Total Protein 8.0 (6.3-8.2) g/dL Albumin 3.2 L (3.9-5) g/dL Laboratory Tests 03/06/18 03/07/18 03/07/18 17:18 00:53 05:51 Troponin T 0.066 H 0.053 H 0.039 H D - EKG Interpretation EKG: sinus rhythm (Non specific T wave changes in lateral precordial leads.) EKG interpretations - Telemetry EKG Rhythm: Sinus Rhythm (Non specific T wave abnormalities noted.) Assessment and Plan Patient was admitted with worsening mental status.Noted to have abnormal EKG and cardiac enzymes.EKG and labs were reviewed.In the present clinical setting.these changes are non specific and would not recommend further cardiac w /u at this point.Continue supportive rx. - Patient Problems (1) Altered mental status Current Visit: Yes Status: Acute (2) Diabetes Current Visit: Yes Status: Acute (3) Elevated troponin Current Visit: Yes Status: Acute (4) T wave inversion in EKG Current Visit: Yes Status: Acute
[2018-03-07] MEDS ORDERED: D50W (25GM) Syringe IV PRN (17:12)
[2018-03-07] MEDS: HumuLIN R SUB-Q SCH (18:42)
[2018-03-08] MEDS: HumuLIN R SUB-Q SCH ×4 (01:07→20:12)
--- NOTE | 2018-03-08 08:38 | Progress Note ---
Assessment and Plan Assessment and plan: Encephalopathy CT Head with no acute findings,cont. Neuro checks, seizure precautions, aspiration precautions, F/u EEG, urinalysis, CBC, CMP. Neurology consultation. Severe malnutrition Nutrition consulted, tube feeding as per nutrition team. Diabetes ADA diet, insulin, accu check Elevated troponin. Cardiology feels that these changes are nonspecific and no further cardiac workup recommended. DVT prophylaxis scd to ble while in bed. History Interval history: Pt is lethargic and nonverbal at present. Unsure of baseline Hospitalist Physical - Constitutional Vitals: Temp Pulse Resp BP Pulse Ox 98.0 F 88 16 145/66 100 03/08/18 03:05 03/08/18 03:05 03/08/18 03:05 03/08/18 03:05 03/08/18 03:05 General appearance: Present: no acute distress - EENT Eyes: Present: PERRL, EOM intact ENT: hearing intact, clear oral mucosa, dentition normal - Neck Neck: Present: supple, normal ROM - Respiratory Respiratory effort: normal Respiratory: bilateral: CTA - Cardiovascular Rhythm: regular Heart Sounds: Present: S1 & S2. Absent: gallop, rub - Extremities Extremities: no ischemia, No edema, Full ROM - Abdominal General gastrointestinal: soft, non-tender, non-distended, normal bowel sounds - Integumentary Integumentary: Present: clear, warm, dry - Neurologic Neurologic: CNII-XII intact, moves all extremities Results - Labs CBC & Chem 7: 03/06/18 17:18 03/06/18 17:18 Labs: Laboratory Last Values WBC 6.9 K/mm3 (4.5-11.0) 03/06/18 17:18 RBC 3.93 M/mm3 (3.65-5.03) 03/06/18 17:18 Hgb 12.1 gm/dl (10.1-14.3) 03/06/18 17:18 Hct 36.4 % (30.3-42.9) 03/06/18 17:18 MCV 93 fl (79-97) 03/06/18 17:18 MCH 31 pg (28-32) 03/06/18 17:18 MCHC 33 % (30-34) 03/06/18 17:18 RDW 15.4 % (13.2-15.2) H 03/06/18 17:18 Plt Count 393 K/mm3 (140-440) 03/06/18 17:18 Lymph % (Auto) 23.4 % (13.4-35.0) 03/06/18 17:18 [place] % (Auto) 8.5 % (0.0-7.3) H 03/06/18 17:18 Eos % (Auto) 6.4 % (0.0-4.3) H 03/06/18 17:18 Baso % (Auto) 0.5 % (0.0-1.8) 03/06/18 17:18 Lymph # 1.6 K/mm3 (1.2-5.4) 03/06/18 17:18 [place] # 0.6 K/mm3 (0.0-0.8) 03/06/18 17:18 Eos # 0.4 K/mm3 (0.0-0.4) 03/06/18 17:18 Baso # 0.0 K/mm3 (0.0-0.1) 03/06/18 17:18 Seg Neutrophils % 61.2 % (40.0-70.0) 03/06/18 17:18 Seg Neutrophils # 4.2 K/mm3 (1.8-7.7) 03/06/18 17:18 Sodium 140 mmol/L (137-145) 03/06/18 17:18 Potassium 4.9 mmol/L (3.6-5.0) 03/06/18 17:18 Chloride 97.3 mmol/L (98-107) L 03/06/18 17:18 Carbon Dioxide 32 mmol/L (22-30) H 03/06/18 17:18 Anion Gap 16 mmol/L 03/06/18 17:18 BUN 82 mg/dL (7-17) H 03/06/18 17:18 Creatinine 0.8 mg/dL (0.7-1.2) 03/06/18 17:18 Estimated GFR > 60 ml/min 03/06/18 17:18 BUN/Creatinine Ratio 103 % 03/06/18 17:18 Glucose 249 mg/dL (65-100) H 03/06/18 17:18 POC Glucose 209 (70-105) H 03/08/18 06:53 Lactic Acid 1.30 mmol/L (0.7-2.0) 03/07/18 05:51 Calcium 9.3 mg/dL (8.4-10.2) 03/06/18 17:18 Magnesium 2.60 mg/dL (1.7-2.3) H 03/07/18 05:51 Total Bilirubin 0.20 mg/dL (0.1-1.2) 03/06/18 17:18 AST 25 units/L (5-40) 03/06/18 17:18 ALT 6 units/L (7-56) L 03/06/18 17:18 Alkaline Phosphatase 81 units/L (35-129) 03/06/18 17:18 Troponin T 0.039 ng/mL (0.00-0.029) H D 03/07/18 05:51 Total Protein 8.0 g/dL (6.3-8.2) 03/06/18 17:18 Albumin 3.2 g/dL (3.9-5) L 03/06/18 17:18 Albumin/Globulin Ratio 0.7 % 03/06/18 17:18 Triglycerides 194 mg/dL (2-149) H 03/06/18 17:18 Cholesterol 179 mg/dL (50-199) 03/06/18 17:18 LDL Cholesterol Direct 118 mg/dL (50-130) 03/06/18 17:18 HDL Cholesterol 47 mg/dL (40-59) 03/06/18 17:18 Cholesterol/HDL Ratio 3.80 % 03/06/18 17:18 TSH 1.500 mlU/mL (0.270-4.200) 03/06/18 20:18 Free T4 0.97 ng/dL (0.76-1.46) 03/06/18 20:18 Urine Color Yellow (Yellow) 03/06/18 19:55 Urine Turbidity Slightly-cloudy (Clear) 03/06/18 19:55 Urine pH 6.0 (5.0-7.0) 03/06/18 19:55 Ur Specific [place] 1.016 (1.003-1.030) 03/06/18 19:55 Urine Protein <15 mg/dl mg/dL (Negative) 03/06/18 19:55 Urine Glucose (UA) Neg mg/dL (Negative) 03/06/18 19:55 Urine Ketones Neg mg/dL (Negative) 03/06/18 19:55 Urine Blood Neg (Negative) 03/06/18 19:55 Urine Nitrite Neg (Negative) 03/06/18 19:55 Urine Bilirubin Neg (Negative) 03/06/18 19:55 Urine Urobilinogen < 2.0 mg/dL (<2.0) 03/06/18 19:55 Ur Leukocyte Esterase Lg (Negative) 03/06/18 19:55 Urine WBC (Auto) 76.0 /HPF (0.0-6.0) H 03/06/18 19:55 Urine RBC (Auto) 1.0 /HPF (0.0-6.0) 03/06/18 19:55 Urine Mucus Few /HPF 03/06/18 19:55 Urine Yeast (Budding) 2+ /HPF 03/06/18 19:55
[2018-03-08] MEDS: SODIUM CHLORIDE FLUSH SYRINGE 10 ML IV SCH ×2 (13:19→22:20)
[2018-03-09] MEDS: HumuLIN R SUB-Q SCH ×3 (00:34→14:12)
[2018-03-09 04:15] LABS: Basophils % (Auto) 0.6 % (0.0-1.8); Eosinophils # (Auto) 0.6 K/mm3 (0.0-0.4); Eosinophils % (Auto) 8.6 % (0.0-4.3); Hematocrit 34.4 % (30.3-42.9); Hemoglobin 11.3 gm/dl (10.1-14.3); Lymphocytes # (Auto) 1.4 K/mm3 (1.2-5.4); Lymphocytes % (Auto) 20.3 % (13.4-35.0); Mean Corpuscular HGB Conc 33 % (30-34); Mean Corpuscular Hemoglobin 31 pg (28-32); Mean Corpuscular Volume 93 fl (79-97); Monocytes # (Auto) 0.7 K/mm3 (0.0-0.8); Monocytes % (Auto) 9.6 % (0.0-7.3); Platelet Count 356 K/mm3 (140-440); Red Cell Distribution Width 15.8 % (13.2-15.2)
[2018-03-09 04:22] LABS: BUN/Creatinine Ratio 73; Blood Urea Nitrogen 51 mg/dL (7-17); Calcium 9.3 mg/dL (8.4-10.2); Hemolysis Index 2
--- NOTE | 2018-03-09 10:39 | Consultation ---
HISTORY OF PRESENT ILLNESS: The patient does not give any history. The patient is unresponsive, but ____. Therefore, I reviewed the history by the Emergency Room doctor and attending physician. This patient is an 87-year-old female and the presenting complaint was altered mental status. She came from a [facility]. They describe worsening of altered mental status over the past several days, but we do not know the baseline. She was still nonverbal apparently, but able to open her eyes and make eye contact. On the day of admission, which was on 03/06/2018, the patient was described to be unresponsive. The history by the attending staff is basically the same, but she was described as found to be more confused and weaker. There is decline in the level of responsiveness. She was then admitted with a diagnosis of encephalopathy. PAST MEDICAL HISTORY: The patient has dementia, chronic disability and debility, diabetes mellitus, stroke, intracerebral hemorrhage, anemia. PAST SURGICAL HISTORY: There was brain surgery, nature of which unknown and G-tube. SOCIAL HISTORY: The patient apparently is . She does not smoke, drink alcoholic beverages. No drugs. FAMILY HISTORY: Unknown. ALLERGIES: HEPARIN. CURRENT MEDICATIONS: Acetaminophen, colestipol, insulin, lisinopril, melatonin, multivitamins, omeprazole, thiamine and Keppra. PHYSICAL EXAMINATION: GENERAL: Revealed a chronically ill-looking female, very, very thin, cachectic, almost looking terminal. The eyes were closed until I opened it. She is not moving at all, but she appeared to be comfortable, not in any pain. HEENT: Flat. Prominent cheek bone loss of muscles and subcutaneous tissue. Eyes have mucus, I have to open this. NECK: Supple. No carotid bruit. CHEST: Showed prominent intercostal space, very thin. HEART: Rhythm slightly tachycardic. LUNGS: Decreased breath sounds. ABDOMEN: Flat. The patient has a G-tube. EXTREMITIES: Very thin, arms looking wasted. Lack of subcutaneous tissue. Foot drop bilaterally. No movement. NEUROLOGIC: Semi-comatose. Cranial nerve limited. Pupils nonreactive, tend to gaze to the right. Mouth constantly open, poorly kept teeth. No spontaneous movement. Sensory testing and coordination are not possible. Reflexes absent. No plantar responses. RADIOLOGICAL DATA: This patient had a CAT scan of the brain, which showed a frontal craniotomy. I do not know who ordered this. There was cortical atrophy. MRI was recommended. CLINICAL IMPRESSION: This patient is closed to almost terminal. She has severe encephalopathy. I suspect this is multifactorial including dehydration, malnutrition, and the effect of chronic diseases. RECOMMENDATIONS: Just conservative medical management. Nutrition. Prognosis is nil to zero. Recovery not as expected. Examination involved in the history and physical examination and more than 50% in coordination of care and counseling. [facility]# [id number] BHUPENDRA/ROBERTA
[2018-03-09] MEDS: SODIUM CHLORIDE FLUSH SYRINGE 10 ML IV SCH (10:47)
--- NOTE | 2018-03-09 11:50 | Discharge Summary ---
Providers - Providers Date of Admission: 03/06/18 19:22 Attending physician: ADEEL RASMUSSEN MD 03/06/18 19:32 Consult to Dietitian/Nutrition [CONS] Routine Physician Instructions: Reason For Exam: Reason for Consult: Write/Manage Tube Feeding 03/08/18 08:39 Consult to Physician [CONS] Routine Comment: left mess. to [id number]/[place] Consulting Provider: DHRUV ALLAN Physician Instructions: Reason For Exam: [facility] Primary care physician: MINO HERNANDEZ Hospitalization Reason for admission: Altered mental status Condition: Fair Pertinent studies: CT head no acute changes Hospital course: Admission HPI: 87 YO Female [facility] Resident with Dementia, Debility, DM, CVA, ICH, Anemia presents to ED for evaluation. Pt is lethargic and unable to provide history. Pt history taken from ED Staff, and SNF Staff. As per staff, the patient was found to be more confused and weak today. As per SNF staff, the patient level of responsiveness is diminished compared to her baseline level of confusion on the previous day. EMS notified and patient transported to [facility] for further care and evaluation. No reports of fever, chills, CP, Palpitations, NVD , loose stools, rashes, or generalized body pain, body aches, trauma, seizure, or medication noncompliance. Pt seen and evaluated in ED and found to have Encephalopathy. Pt admitted to [facility] unit. Encephalopathy; CT Head with no acute findings,cont. Neuro checks, seizure precautions, aspiration precautions. Neurology consultation. Severe malnutrition; Nutrition consulted, tube feeding as per nutrition team. Diabetes; ADA diet, insulin, accu check Elevated troponin; Cardiology feels that these changes are nonspecific and no further cardiac workup recommended. The family concerned about losing her bed [facility] and asked for discharge. Patient had episodes of fever and WBC in the urine was given Levaquin at the time of discharge. Disposition: [id number]/TX-[id number] SNF [facility] Time spent for discharge: 32 minutes - Discharge Diagnoses (1) Altered mental status Status: Acute Qualifiers: Altered mental status type: stupor Qualified Code(s): R40.1 - Stupor (2) Diabetes Status: Chronic Qualifiers: Diabetes mellitus type: type 2 Diabetes mellitus snf insulin use: with snf use Diabetes mellitus complication status: with hyperglycemia Qualified Code(s): E11.65 - Type 2 diabetes mellitus with hyperglycemia; Z79.4 - offc spec (current) use of insulin (3) Elevated troponin Status: Acute (4) UTI (urinary tract infection) Status: Acute Qualifiers: Urinary tract infection type: acute cystitis Hematuria presence: without hematuria Qualified Code(s): N30.00 - Acute cystitis without hematuria Core Measure Documentation - Palliative Care Palliative Care/ Comfort Measures: Not Applicable - Core Measures Any of the following diagnoses?: history only (CVA) Exam - Physical Exam Narrative exam: Not in cardiopulmonary distress. The patient appeared friable. Vital signs as documented. Head exam is unremarkable. No scleral icterus . Neck is without jugular venous distension, thyromegaly, or carotid bruits. Lungs are clear to auscultation. Cardiac exam reveals regular rate and Rhythm. Abdominal exam reveals tube feeding in place. Extremities are nonedematous and both femoral and pedal pulses are normal. 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 - Constitutional Vitals: Temp Pulse Resp BP Pulse Ox 100.5 F H 96 H 20 134/73 99 03/09/18 08:05 03/09/18 08:05 03/09/18 08:05 03/09/18 08:05 03/09/18 08:05 Plan Activity: advance as tolerated Weight Bearing Status: Weight Bear as Tolerated Diet: diabetic, per dietitian instruction Additional Instructions: Follow up with your PCP in 1-2 weeks Follow up with: PRIMARY CAREMD [Referring] - 3-5 Days Prescriptions: levoFLOXacin [Levaquin TAB] 500 mg PO QDAY #5 tablet
[2018-03-09 14:08] VITALS: BP 133/68
== END 2018-03-09 14:25 | DRG 70 ==
LOC: ED 16:40 → 2B-ACE 19:22
PROVIDERS: ADMIT Internal Medicine; ATTEND Internal Medicine
DX: G93.49 Other encephalopathy (principal); E43 Unspecified severe protein-calorie malnutrition; F03.90 Unspecified dementia, unspecified severity, without behavioral disturbance, psychotic disturbance, mood disturbance, and anxiety; E86.0 Dehydration; D64.9 Anemia, unspecified; Z66 Do not resuscitate; E11.9 Type 2 diabetes mellitus without complications; Z86.73 Personal history of transient ischemic attack (TIA), and cerebral infarction without residual deficits; Z88.8 Allergy status to other drugs, medicaments and biological substances; Z79.4 Long term (current) use of insulin; Z93.1 Gastrostomy status; Z68.1 Body mass index [BMI] 19.9 or less, adult; Z86.718 Personal history of other venous thrombosis and embolism
CPT/HCPCS: 36415; 70450; 71045; 80048; 80053; 80061; 81001; 82140; 82962; 83735; 84439; 84443; 84484; 85025; 87040; 87086; 93005; 93010; 94760; 95819; J1815; J7030